=== PATIENT | female | born 1945 | race Caucasian/White ===

== ENCOUNTER 2023-01-14 16:32 | Emergency (ER) | payer OTHER, MEDICARE ==
--- OUTSIDE RECORDS SUMMARY | 2023-01-14 16:42 | XMS REPORT | Continuity of Care Document ---
:1945 Author Organization [facility] t Address [address] [place] [address]. [address] [place] [address] Care Team Providers Name Role Phone Gokul Posadas MD Primary Care Physician LESTER STARK Attending Clinician Unavailable Karlos Moreno Attending Clinician Unavailable LUCY_Dany Attending Clinician Unavailable Gokul Posadas Attending Clinician Lester Stark MD Attending Clinician Charity Avila Attending Clinician Doctor Unassigned, [place] Attending Clinician Unavailable Veronica Craig MD Attending Clinician [phone] Juliana Menjivar DO Attending Clinician [phone] Jorge [place] MD Attending Clinician Chon Jasso MD Attending Clinician Shae Savage MD Attending Clinician Norma Phillips MD Attending Clinician Quan Verdugo MD Attending Clinician Fadi AUTOMOTIVE REFINISH TECHNICIAN, Jamar Lim Attending Clinician JAMAR APONTE Attending Clinician Unavailable Karlos GREEN, Meri Rouse Attending Clinician Unavailable Vitaliy Huitron DO Attending Clinician Mohit Oliver MD Attending Clinician [phone] MOHIT OLIVER Attending Clinician Unavailable Jhon RAM, Afaq Attending Clinician KARLOS MORENO Attending Clinician Unavailable MD KARLOS MORENO Attending Clinician Unavailable Lupillo Gastelum MD Attending Clinician Ramon RMA, Maurisio Chavez Attending Clinician [phone] Micah CONSERVATION AGENT, Carli Attending Clinician Everardo Schmidt Attending Clinician Unavailable Ralph SEWELL, Jeanne Attending Clinician Unavailable Cecilia Castillo MA Attending Clinician Unavailable Anila RAM, Julio Lacy Attending Clinician Rehan WHARTON, Angelica Ghosh Attending Clinician Angelo Hogan MA Attending Clinician Unavailable Yoel Jalloh MD Attending Clinician Inez Huggins Attending Clinician Unavailable VISIT, NURSE [facility] MAM[facility] Attending Clinician Unavailable Physician, No Primary or Family Admitting Clinician Unavaildawna AYALA_Rob_Mercedes_ Admitting Clinician Unavailable JORGE [place]IS Admitting Clinician Unavailable MD VERONICA CRAIG Admitting Clinician Unavailable Mohit Oliver MD Admitting Clinician [phone] MOHIT OLIVER Admitting Clinician Unavailable KARLOS MORENO Admitting Clinician Unavailable MD KARLOS MORENO Admitting Clinician Unavailable Karlos Moreno Admitting Clinician Unavailable LUPILLO GASTELUM Admitting Clinician Unavailable UNDEFINED Admitting Clinician Unavailable Payers Payer Name Policy Type Policy Number Effective Date Expiration Date S ource [place]IC[place]: [id number] 2012 [employer] 00:00:00 [facility] - [id number] 2022 OPTIONS 00:00:00 Problems Condition Condition Condition Status Onset Resolution Last Treating Co mments Source Name Details Category Date Date Treatment Clinician Date Osteoarthr Osteoarthr Problem Active A zalea itis of itis of 3-10 Orthope right hip Right Hip 00:00: dic joint Joint 00 Sports Medicin e Hypertensi Hypertens Diagnosis Active 2022-12-11 Memoria ve edelmira 12-08 13:12:52 l disorder, disorder, 00:00: Herm lynn systemic systemic 00 arterial arterial (disorder) (disorder) Active 12/08/2022 Diagnosis 12/11/2022 Medical Group,[facility] Internal Medicine [place] At risk At risk Diagnosis Active 2022-12-11 Memoria for for 12-08 13:12:52 l negative negative 00:00: Jose L n response response 00 to to medication medication (finding) (finding) Active 12/08/2022 Diagnosis 12/11/2022 [facility] Internal Medicine [place] ST ST Disease Active 2021-11 Univers elevation elevation 2-13 ity of myocardial [place] infarction infarction 00 Me dical (STEMI) (STEMI) Branch involving involving other other coronary coronary artery of artery of inferior inferior wall wall Implantati Implantati Problem Active 2020-11 A zalea on of on of 2-06 Orthope joint Joint 00:00: dic prosthesis Prosthesis 00 Sp orts Medicin e Infection Infection Problem Active 2020-11 Aza jason associated Associated 17 Or thope with with 00:00: dic prosthesis Prosthesis 00 Sp orts of left of Left Medicin knee joint Knee Joint e Streptococ Streptococ Problem Active 2020-11 A zalea cus cus 1-17 Orthope agalactiae Agalactiae 00:00: di c infection Infection 00 Spor ts Medicin e Aftercare Aftercare Disease Active 2020-11 Met leobardoi following following 1-16 st explantati explantati 00:00: Ho spita on of knee on of knee 00 l joint joint prosthesis prosthesis Aftercare Aftercare Problem Active 2020-11 Aza jason 0-04 Orthope 00:00: dic 00 Sports Medicin e Eruption Eruption Problem Active Azale a 8-30 Orthope 00:00: dic 00 Sports Medicin e Keloid Keloid Problem Active Debby scar Scar 7-27 Orthope 00:00: dic 00 Sports Medicin e Chronic Chronic Disease Active Methodi infection infection 7-25 st of left of left 00:00: Hospita knee knee 00 l Replacemen Replacemen Problem Active A zalea t of total t of Total 6-15 Or thope knee joint Knee Joint 00:00: di c 00 Sports Medicin e Prosthetic Prosthetic Problem Active A zalea joint Joint 6-15 Orthope infection Infection 00:00: dic 00 Sports Medicin e Anemia of Anemia of Disease Active Met hodi chronic chronic 6-10 st disease disease 00:00: Hospita 00 l Infection Infection Disease Active Met hodi of of 5-10 st prosthetic prosthetic 00:00: Ho spita left knee left knee 00 l joint joint Primary Primary Disease Active Overview: Meth marissa osteoarthr osteoarthr 1-[address] itis of itis of 00:00: g of this Hospi ta right knee right knee 00 note l might be different from the original. Added automatic ally from request for surgery [id number] OA OA Disease Active [facility]i (osteoarth (osteoarth 9-24 st ritis) of ritis) of 00:00: Hosp karlos knee knee 00 l Malignant Malignant Problem Resolve 2022-06-12 Memoria tumor of tumor of d 03:51:35 l breast breast [place] (disorder) (disorder) Resolved Problem 06/12/2022 Lt breast Medical Group Bronchitis Bronchiti Problem Resolve 2022-06-12 Memoria (disorder) s d 03:51:35 l (disorder) Jose L n Resolved Problem 06/12/2022 Data migrated from [employer] on 05/18/15.<b r/>Data migrated from [employer] on 05/17/15. Medical Group Cat bite Cat bite Problem Active 2022-12-29 Memoria (finding) (finding) 06:23:00 l Active [place] Problem 12/29/2022 Medical Group,[facility] Morbid Morbid Problem Active 2022-12-29 [facility] obesity obesity 06:23:00 l (disorder) (disorder) He r[place] Active Problem 12/29/2022 [facility] Arthritis Arthritis Problem Active 2022-12-29 Memoria (disorder) (disorder) 06:23:00 l Active [place] Problem 12/29/2022 Medical [facility] Internal Medicine [facility] Anemia Anemia Problem Active 2022-12-29 Trevor les (disorder) (disorder) 06:23:00 l Active [place] Problem 12/29/2022 [facility] Chronic Chronic Problem Active 2022-12-29 Me moria kidney kidney 06:23:00 l disease disease [place] stage 3 stage 3 (disorder) (disorder) Active Problem 12/29/2022 Medical [facility] Internal Medicine [facility] Effusion Effusion Problem Active 2022-12-29 Memoria of joint of joint 06:23:00 l of left of left [place] knee knee Active Problem 12/29/2022 Medical [facility] Bacteremia Problem Active 2022-12-29 M emoria (disorder) Bacteremia 06:23:00 l (disorder) Jose L n Active Problem 12/29/2022 [facility] Internal [facility] [place] 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-29 Memoria arterioscl arterioscl 06:23:00 l erosis erosis [place] (disorder) (disorder) Active Problem 12/29/2022 [facility] Internal [facility] [place] Finding Finding Problem Active 2022-12-29 Me moria related to related to 06:23:00 l ability to ability to He r[place] perform perform personal personal care care activity activity (finding) (finding) Active Problem 12/29/2022 [facility] Internal Medicine [place] History of History Problem Active 2022-12-29 Memoria total knee of total 06:23:00 l arthroplas knee Jose L n ty arthroplas (situation ty ) (situation ) Active Problem 12/29/2022 [facility] Internal Medicine [place] Hyperlipid Hyperlipi Problem Active 2022-12-29 Memoria emia demia 06:23:00 l (disorder) (disorder) He rmann Active Problem 12/29/2022 Medical Group,[facility] Internal Medicine [place] Pulmonary Pulmonary Problem Active 2022-12-29 Memoria embolism embolism 06:23:00 l (disorder) (disorder) He rmann Active Problem 12/29/2022 [facility] [place] Fistula of Fistula Problem Active 2022-12-29 Memoria knee joint of knee 06:23:00 l (disorder) joint Jose L n (disorder) Active Problem 12/29/2022 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 Infection Infection Problem Active 2022-12-29 Memoria AND/OR AND/OR 06:23:00 l inflammato inflammato He rmann ry ry reaction reaction due to due to internal internal prosthetic prosthetic device, device, implant implant AND/OR AND/OR graft graft (disorder) (disorder) Active Problem 12/29/2022 [facility] Patient Patient Problem Active 2022-12-29 Me moria encounter encounter 06:23:00 l status status [place] (finding) (finding) Active Problem 12/29/2022 [facility] Requires Requires Problem Active 2022-12-29 Memoria vaccinatio vaccinatio 06:23:00 l n n Active [place]o Problem 12/29/2022 [facility] Artificial Artificia Diagnosis 2022-2022-12-11 2022-12-11 Memoria knee joint l knee 12-08 13:12:52 13:12:52 l present joint 23:01: [place] (finding) present 00 (finding) 12/08/2022 Diagnosis 12/11/2022 [facility] Long-term Long-term Diagnosis 2022-2022-12-11 2022-12-11 Memoria current current 12-08 13:12:52 13:12:52 l use of use of 23:01: [place] drug drug 00 therapy therapy (situation (situation ) ) 12/08/2022 Diagnosis 12/11/2022 [facility] [place] Atheroscle Atheroscl Diagnosis 2022-2022-12-11 2022-12-11 Memoria rosis of erosis of 12-08 13:12:52 13:12:52 l coronary coronary 23:00: Jose L brand artery artery 00 (disorder) (disorder) 12/08/2022 Diagnosis 12/11/2022 Medical Group Essential Essential Diagnosis 2022-12-11 2022-12-11 Memoria hypertensi hypertensi 12-08 13:12:52 13:12:52 l on on 23:00: [place] (disorder) (disorder) 00 12/08/2022 Diagnosis 12/11/2022 Medical Group Osteoarthr Osteoarth Diagnosis 2022-12-11 2022-12-11 Memoria itis ritis 12-08 13:12:52 13:12:52 l (disorder) (disorder) 23:00: Darnell vaughan 12/08/2022 00 Diagnosis 12/11/2022 Medical Group No able No able Diagnosis 2022-12-11 2022-12-11 Memoria caregiver caregiver 12-08 13:12:52 13:12:52 l in in 22:59: [place] household household 00 12/08/2022 Diagnosis 12/11/2022 [facility] Internal Medicine [place] History of Past Illness Condition Condition Condition Status Onset Resolution Last Treating Co mments Source Name Details Category Date Date Treatment Clinician Date Essential Essential Problem 2022-06-12 2022-06-12 Memoria (primary) (primary) 06-09 03:51:35 03:51:35 l hypertensi hypertensi 20:24: Darnell vaughan on on 06/09/2022 06/12/2022 Medical Group Unspecifie Unspecifi Problem 2022-06-12 2022-06-12 Memoria d ed 06-09 03:51:35 03:51:35 l osteoarthr osteoarthr 20:24: He alexus itis, itis, 00 unspecifie unspecifie d site d site 06/09/2022 06/12/2022 Medical Group Chronic Chronic Problem 2022-06-12 2022-06-12 Memoria kidney kidney 06-09 03:51:35 03:51:35 l disease, disease, 20:24: Jose L brand stage 3 stage 3 00 unspecifie unspecifie d d 06/09/2022 06/12/2022 Medical Group Infection Infection Problem 2020-112021-09-04 2021-09-04 Memvenice and and 11-01 00:09:56 00:09:56 l inflammato inflammato 14:26: He rmann ry ry 00 reaction reaction due to due to internal internal left knee left knee prosthesis prosthesis , , subsequent subsequent encounter encounter 09/01/2021 09/04/2021 Medical Group Allergies, Adverse Reactions, Alerts Allergy Allergy Status Severity Reaction(s) Onset Inactive Treating Comm ents Source Name Type Date Date Clinician TELMISAR DRUG Active Hives 2021-11 Univers GRADY INGREDI 2-21 ity of 00:00: [place] [address] Medical Branch AMLODIPI DRUG Active Other-Cmnt 2021-11 Univ ers NE INGREDI 2-15 ity of 00:00: [place] [address] Medical Branch Amlodipi Propensi Active Other - See 2021-11 Gingival Univers ne ty to comments 2-15 hyperplas ity o f adverse 00:00: ia [place] reaction 00 Medical s Branch No Known DA Active U [facility] Allergie 6-15 Clear s 00:00: [place] 00 [facility] No Known DA Active U [facility] Allergie 6-15 Clear s 00:00: [place] 00 [facility] No Known No Known Active Memori a Medicati Medicati l on on [place] Allergie Allergie s s NO KNOWN Drug Active Univers ALLERGIE Class ity of S [facility] Family History Family Member Diagnosis Comments Start Date Stop Date Source Natural brother Osteoporosis [facility] Natural father Osteoporosis [facility] Natural mother Cancer [facility] mother Diabetes [facility] mother Osteoporosis [facility] Social History Social Habit Start Date Stop Date Quantity Comments Source History SDOH Social Unive rsity of [facility] Med ical Together Branch History SDOH Social Unive rsity of [facility] Branch History SDOH Social Unive rsity of [facility] Medical Membership Branch History SDOH Social Unive rsity of [facility] Medical Meetings Branch Exposure to 2022-10-11 2022-10-21 Not sure University of SARS-CoV-2 (event) 00:00:00 12:27:00 [facility] Tobacco use and 2022-10-21 2022-10-21 Smokeless Universit y of exposure 00:00:00 00:00:00 tobacco non-user [facility] dical Branch History SDOH 2022-10-14 2022-10-14 1 University o f Alcohol Binge 00:00:00 00:00:00 [place] Medic al Branch History SDOH Social 2022-10-14 2022-10-14 5 Unive rsity of Connections Phone 00:00:00 00:00:00 [facility] edical Branch History SDOH Social 2022-10-14 2022-10-14 3 Unive rsity of Connections Living 00:00:00 00:00:00 [place] [facility] History SDOH 2022-10-14 2022-10-14 0 University o f Physical Activity 00:00:00 00:00:00 [place] M edical DPW Branch History SDOH 2022-10-14 2022-10-14 0 University o f Physical Activity 00:00:00 00:00:00 [facility] edical MPS Branch History SDOH 2022-10-14 2022-10-14 5 University o f Financial 00:00:00 00:00:00 [place] [facility] History SDOH Food 2022-10-14 2022-10-14 1 Univers ity of Worry 00:00:00 00:00:00 [place] [facility] History SDOH Food 2022-10-14 2022-10-14 1 Univers ity of Scarcity 00:00:00 00:00:00 [place] [facility] History SDOH 2022-10-14 2022-10-14 2 University o f Transport Med 00:00:00 00:00:00 [place] Medic al Branch History SDOH 2022-10-14 2022-10-14 2 University o f Transport Non-Med 00:00:00 00:00:00 [facility] edical Branch History SDOH 2022-10-14 2022-10-14 1 University o f Alcohol Frequency 00:00:00 00:00:00 [place] M edical Branch History SDOH 2022-10-14 2022-10-14 0 University o f Alcohol Std Drinks 00:00:00 00:00:00 [facility] Branch Alcohol intake 2021-09-30 2021-09-30 Current Denominational 00:00:00 00:00:00 non-drinker of Hospital alcohol (finding) Sex Ass[birth year] At [birth year] Denominational 00:00:00 00:00:00 Hospital Smoking Status Start Date Stop Date Source Tobacco smoking consumption [facility] Branch Tobacco smoking status [facility] Medications Ordered Filled Start Stop Current Ordering Indication Dosage Frequency Signature Comments Components Source Medication Medication Date Date Medication? Clinician (SIG) Name Name isosorbide 2022-0 Yes 60 mg = 1 Me moria mononitrate 2-09 tab, PO, l 60 mg oral 12:10: QAM, # 30 He rmann tablet, 00 tab, 11 extended Refill(s), release Pharmacy: [facility] #[id number], 154.94, cm, 12/08/22 15:09:00 MEDICAL ASSEMBLY, Height, 118.636, kg, 06/09/22 14:36:00 CDT, Weight losartan 25 2022-0 Yes 25 mg = 1 M emoria mg oral 2-09 tab, PO, l tablet 12:10: Daily, # Christiano 00 30 tab, 11 Refill(s), Pharmacy: [facility] #[id number], 154.94, cm, 12/08/22 15:09:00 MEDICAL ASSEMBLY, Height, 118.636, kg, 06/09/22 14:36:00 CDT, Weight isosorbide 2022-0 Yes 60 mg = 1 Me moria mononitrate 2-09 tab, PO, l 60 mg oral 12:10: QAM, # 30 He rmann tablet, 00 tab, 11 extended Refill(s), release Pharmacy: [facility] #[id number], 154.94, cm, 12/08/22 15:09:00 MEDICAL ASSEMBLY, Height, 118.636, kg, 06/09/22 14:36:00 CDT, Weight losartan 25 2022-0 Yes 25 mg = 1 M emoria mg oral 2-09 tab, PO, l tablet 12:10: Daily, # [place] 00 30 tab, 11 Refill(s), Pharmacy: [facility] #[id number], 154.94, cm, 12/08/22 15:09:00 MEDICAL ASSEMBLY, Height, 118.636, kg, 06/09/22 14:36:00 CDT, Weight Eliquis 5 2022-0 Yes 5 mg = 1 Trevor les mg oral 2-09 tab, PO, l tablet 12:09: BID, # 60 Jose L n 00 tab, 11 Refill(s), Pharmacy: [facility] #[id number], 154.94, cm, 12/08/22 15:09:00 MEDICAL ASSEMBLY, Height, 118.636, kg, 06/09/22 14:36:00 CDT, Weight Eliquis 5 2022-0 Yes 5 mg = 1 Trevor les mg oral 2-09 tab, PO, l tablet 12:09: BID, # 60 Jose L n 00 tab, 11 Refill(s), Pharmacy: [facility] #[id number], 154.94, cm, 12/08/22 15:09:00 MEDICAL ASSEMBLY, Height, 118.636, kg, 06/09/22 14:36:00 CDT, Weight atorvastati 2022-0 Yes 40 mg = 1 M emoria n 40 mg 2-07 tab, PO, l oral tablet 21:09: Daily, 0 He rmann 00 Refill(s) atorvastati 2022-0 Yes 40 mg = 1 M emoria n 40 mg 2-07 tab, PO, l oral tablet 21:09: Daily, 0 He rmann 00 Refill(s) Metoprolol 2022-0 Yes 50 mg = 1 Me moria Succinate 2-07 tab, PO, l ER 50 mg 21:07: Daily, # Terra nn oral 00 90 tab, 0 tablet, Refill(s) extended release Metoprolol 2022-0 Yes 50 mg = 1 Me moria Succinate 2-07 tab, PO, l ER 50 mg 21:07: Daily, # Terra nn oral 00 90 tab, 0 tablet, Refill(s) extended release furosemide 2022-0 Yes 40 mg = 1 Me moria 40 mg oral 2-07 tab, PO, l tablet 21:06: Daily, # Christiano 00 90 tab, 0 Refill(s) furosemide 2022-0 Yes 40 mg = 1 Me moria 40 mg oral 2-07 tab, PO, l tablet 21:06: Daily, # [place] 00 90 tab, 0 Refill(s) aspirin 2022-0 Yes 81mg QD Take 1 [facility]i (ECOTRIN) 1-07 tablet (81 st 81 MG 20:42: mg total) Hospita enteric 02 by mouth l coated daily. tablet atorvastati 2023-0 Yes 40mg QD Take 1 Meth marissa n (LIPITOR) -07 tablet (40 st 40 mg 20:42: mg total) Hospita tablet 02 by mouth l daily. nitroglycer 2023-[address] 1 Met hodi in 11-[address] (NITROSTAT) 20:42: (0.4 mg Hos jana 0.4 MG SL 02 total) l tablet under the tongue every 5 (five) minutes as needed for chest pain. aspirin 2023-0 Yes 81mg QD Take 1 [facility]i (ECOTRIN) 11-07 tablet (81 st 81 MG 20:42: mg total) Hospita enteric 02 by mouth l coated daily. tablet atorvastati 2023-0 Yes 40mg QD Take 1 Meth marissa n (LIPITOR) 11-07 tablet (40 st 40 mg 20:42: mg total) Hospita tablet 02 by mouth l daily. nitroglycer 2023-[address] 1 Met hodi in 11-[address] (NITROSTAT) 20:42: (0.4 mg Hos jana 0.4 MG SL 02 total) l tablet under the tongue every 5 (five) minutes as needed for chest pain. furosemide 2023-0 2023- No 40mg QD Take 1 Meth marissa (LASIX) 40 11-07 tablet (40 st mg tablet 20:42: 00:00 mg total) Ho spita 02 :00 by mouth l daily. ticagrelor 2023-0 2023- No 90mg Q.5D Take 1 Meth marissa (BRILINTA) 11-07 tablet (90 st 90 mg 20:42: 00:00 mg total) Hospit a tablet 02 :00 by mouth 2 l (two) times a day. furosemide 2023-0 2023- No 40mg QD Take 1 Meth marissa (LASIX) 40 11-07 tablet (40 st mg tablet 20:42: 00:00 mg total) Ho spita 02 :00 by mouth l daily. ticagrelor 2023-0 2023- No 90mg Q.5D Take 1 Meth marissa (BRILINTA) 11-07 tablet (90 st 90 mg 20:42: 00:00 mg total) Hospit a tablet 02 :00 by mouth 2 l (two) times a day. metoprolol 2022- No 100mg QD Take 1 Met hodi succinate 11-[address] XL 00:00: 05:59 (100 mg Hospita (TOPROL-XL) 00 :00 total) by l 100 mg 24 mouth hr tablet every morning for 30 days. isosorbide 2022-2022- No 60mg QD Take 1 Meth marissa mononitrate 11-07 tablet (60 s t (IMDUR) 60 00:00: 05:59 mg total) H ospita MG 24 hr 00 :00 by mouth l tablet daily for 30 days. losartan 2022- No 25mg QD Take 1 Method i (COZAAR) 25 11-07 tablet (25 s t MG tablet 00:00: 05:59 mg total) Ho spita 00 :00 by mouth l daily for 30 days. metoprolol 2022- No 100mg QD Take 1 Met hodi succinate 11-[address] XL 00:00: 05:59 (100 mg Hospita (TOPROL-XL) 00 :00 total) by l 100 mg 24 mouth hr tablet every morning for 30 days. isosorbide 2022- No 60mg QD Take 1 Meth marissa mononitrate 11-07 tablet (60 s t (IMDUR) 60 00:00: 05:59 mg total) H ospita MG 24 hr 00 :00 by mouth l tablet daily for 30 days. losartan 2022- No 25mg QD Take 1 Method i (COZAAR) 25 11-07 tablet (25 s t MG tablet 00:00: 05:59 mg total) Ho spita 00 :00 by mouth l daily for 30 days. multivit-mi 0 Yes 1{tbl} QD Take 1 Me thodi n/iron/foli 1-[address] c/lutein 20:42: mouth Hospita (CENTRUM 35 daily. l [place] WOMEN ORAL) multivit-mi 0 Yes 1{tbl} QD Take 1 Me thodi n/iron/foli 1-[address] c/lutein 20:42: mouth Hospita (CENTRUM 35 daily. l [place] WOMEN ORAL) apixaban 2023-0 Yes 5mg Take 1 Methodi (ELIQUIS) 5 1-06 tablet (5 st mg tablet 00:00: mg total) Hos jana 00 by mouth l take as directed (DVT/PE). Take 2 tablets (10 mg) twice daily #14; take 1 tablet (5 mg) twice daily #46 ceFAZolin 2023-0 Yes 2g Q8H Infuse 50 Met hodi in 0.9% 1-06 mL ([address] sodium 00:00: total) Hospita chloride 00 into a l (ANCEF) 2 venous gram/50 mL catheter IVPB every 8 (eight) hours. apixaban 2023-0 Yes 5mg Take 1 [facility]i (ELIQUIS) 5 1-06 tablet (5 st mg tablet 00:00: mg total) Hos jana 00 by mouth l take as directed (DVT/PE). Take 2 tablets (10 mg) twice daily #14; take 1 tablet (5 mg) twice daily #46 ceFAZolin 2023-0 Yes 2g Q8H Infuse 50 Met hodi in 0.9% 1-06 mL ([address] sodium 00:00: total) Hospita chloride 00 into a l (ANCEF) 2 venous gram/50 mL catheter IVPB every 8 (eight) hours. furosemide 2023-0 2023- No 20mg QD Take 1 Meth marissa (Lasix) 20 11-06- tablet (20 st mg tablet 00:00: 05:59 mg total) Ho spita 00 :00 by mouth l daily for 30 days. magnesium 2023-0 2023- No 400mg QD Take 1 Meth marissa oxide 11-06- tablet st (MAG-OX) 00:00: 05:59 (400 mg Hospi ta 400 mg 00 :00 total) by l (241.3 mg mouth magnesium) daily for tablet 30 days. furosemide 2023-0 2023- No 20mg QD Take 1 Meth marissa (Lasix) 20 11-06-06 tablet (20 st mg tablet 00:00: 05:59 mg total) Ho spita 00 :00 by mouth l daily for 30 days. magnesium 2023-0 2023- No 400mg QD Take 1 Meth marissa oxide 11-[address] (MAG-OX) 00:00: 05:59 (400 mg Hospi ta 400 mg 00 :00 total) by l (241.3 mg mouth magnesium) daily for tablet 30 days. telmisartan 2021-11 80mg Take 80 mg Univers 80 mg 2-21 12-21 by mouth ity of tablet 13:38: 00:00 in the [place] 36 :00 morning. [facility] telmisartan 2021-11 No 80mg Take 80 mg Univers 80 mg 2-21 12-21 by mouth ity of tablet 13:38: 00:00 in the [place] 36 :00 morning. [facility] 2021-11 Yes 1{tbl} Take 1 Un inocencia n/iron/foli 2-21 tablet by ity of c/lutein 13:12: mouth [place] (CENTRUM 39 every Medical SILVER morning. [place] WOMEN ORAL) terazosin 5 2021-11 Yes 5mg Take 5 mg U nivers mg capsule 2-21 by mouth ity o f 13:12: at [place] 39 bedtime. [facility] 2021-11 Yes 1{tbl} Take 1 Un inocencia n/iron/foli 2-21 tablet by ity of c/lutein 13:12: mouth [place] (CENTRUM 39 every Medical SILVER morning. [place] WOMEN ORAL) terazosin 5 2021-11 Yes 5mg Take 5 mg U nivers mg capsule 2-21 by mouth ity o f 13:12: at [place] 39 bedtime. [facility] [address] 2021-11 Yes 1{tbl} Take 1 Un inocencia n/iron/foli 2-21 tablet by ity of c/lutein 13:12: mouth [place] (CENTRUM 39 every Medical SILVER morning. [place] WOMEN ORAL) terazosin 5 2021-11 Yes 5mg Take 5 mg U nivers mg capsule 2-21 by mouth ity o f 13:12: at [place] 39 bedtime. [facility] [address] 2021-11 Yes 1{tbl} Take 1 Un inocencia n/iron/foli 2-21 tablet by ity of c/lutein 13:12: mouth [place] (CENTRUM 39 every Medical SILVER morning. [place] WOMEN ORAL) terazosin 5 2021-11 Yes 5mg Take 5 mg U nivers mg capsule 2-21 by mouth ity o f 13:12: at [place] [address] bedtime. Medical Branch multivit-mi 2021-11 Yes 1{tbl} Take 1 Un inocencia n/iron/foli 2-21 tablet by ity of c/lutein 13:12: mouth [place] (CENTRUM 39 every Medical SILVER morning. Branch WOMEN ORAL) terazosin 5 2021-11 Yes 5mg Take 5 mg U nivers mg capsule 2-21 by mouth ity o f 13:12: at [place] [address] bedtime. Medical Branch multivit-mi 2021-11 Yes 1{tbl} Take 1 Un inocencia n/iron/foli 2-21 tablet by ity of c/lutein 13:12: mouth [place] (CENTRUM 39 every Medical SILVER morning. Branch WOMEN ORAL) terazosin 5 2021-11 Yes 5mg Take 5 mg U nivers mg capsule 2-21 by mouth ity o f 13:12: at [place] [address] bedtime. Medical Branch sacubitriL- 2021-11 Yes [id number] 1{tbl} Take 1 Univers valsartan 2-21 9100 tablet by ity o f (ENTRESTO) 00:00: mouth in [place] 24-26 mg 00 the Medical tablet morning Branch and 1 tablet in the evening. sacubitriL- 2021-11 Yes [id number] 1{tbl} Take 1 Univers valsartan 2-21 9100 tablet by ity o f (ENTRESTO) 00:00: mouth in [place] 24-26 mg 00 the Medical tablet morning Branch and 1 tablet in the evening. sacubitriL- 2021-11 Yes [id number] 1{tbl} Take 1 Univers valsartan 2-21 9100 tablet by ity o f (ENTRESTO) 00:00: mouth in [place] 24-26 mg 00 the Medical tablet morning Branch and 1 tablet in the evening. sacubitriL- 2021-11 Yes [id number] 1{tbl} Take 1 Univers valsartan 2-21 9100 tablet by ity o f (ENTRESTO) 00:00: mouth in [place] 24-26 mg 00 the Medical tablet morning Branch and 1 tablet in the evening. sacubitriL- 2021-11 Yes [id number] 1{tbl} Take 1 Univers valsartan 2-21 9100 tablet by ity o f (ENTRESTO) 00:00: mouth in [place] 24-26 mg 00 the Medical tablet morning Branch and 1 tablet in the evening. sacubitriL- 2021-11 Yes [id number] 1{tbl} Take 1 Univers valsartan 2-21 9100 tablet by ity o f (ENTRESTO) 00:00: mouth in [place] 24-26 mg 00 the Medical tablet morning Branch and 1 tablet in the evening. gadobenate 2021-11- No [id number] .2mL/kg 23.76 mL Univers dimeglumine 2-19 - (0.2 mL/kg i ty of (MULTIHANCE 21:00: 20:34 ?118.8 [place] -15 mL) 00 :00 kg), Medical injection Intravenou [place] ch 23.76 mL s, ONCE, 1 dose, On Wed10/19/22 at 1500, Routine multivit-mi 2021-11 Yes 1{tbl} Take 1 Un inocencia n/iron/foli 2-19 tablet by ity of c/lutein 17:02: mouth [place] (CENTRUM 43 every Medical SILVER morning. Branch WOMEN ORAL) terazosin 5 2021-11 Yes 5mg Take 5 mg U nivers mg capsule 2-19 by mouth ity o f 17:02: at [place] [address] bedtime. Medical Branch telmisartan 2021-11 Yes 80mg Take 80 mg Univers 80 mg 2-19 by mouth ity of tablet 17:02: in the [place] [address] morning. Medical Branch multivit-mi 2021-11 Yes 1{tbl} Take 1 Un inocencia n/iron/foli 2-19 tablet by ity of c/lutein 17:02: mouth [place] (CENTRUM 43 every Medical SILVER morning. Branch WOMEN ORAL) terazosin 5 2021-11 Yes 5mg Take 5 mg U nivers mg capsule 2-19 by mouth ity o f 17:02: at [place] [address] bedtime. Medical Branch telmisartan 2021-11 Yes 80mg Take 80 mg Univers 80 mg 2-19 by mouth ity of tablet 17:02: in the [place] [address] morning. Medical Branch magnesium 2021-11- No 400mg 400 mg, Uni vers oxide 2-19 12-19 Oral, ity of (MAG-OX 14:30: 14:43 ONCE, 1 [place] 400) tablet 00 :00 dose, On Medi nadine 400 mg Mon Branch 10/19/22 at 0830, Routine TRIAMTERENE 2021-11- No 37.5mg Take 37.5 Univers ORAL 2-19 12-19 mg by ity of 14:16: 00:00 mouth [place] 32 :00 daily. Medical Branch aspirin 81 2021-11 Yes [id number] 81mg Take 1 U nivers mg chewable 2-19 tablet by ity of tablet 00:00: mouth in [place] 00 the Medical morning. Branch atorvastati 2021-11 Yes [id number] 40mg Take 1 Univers n 40 mg 2-19 tablet by ity of tablet 00:00: mouth at [place] 00 bedtime. Medical Branch nitroglycer 2021-[id number] 1 Univers in 0.4 mg 2-19 tablet ity of sublingual 00:00: under the [place] tablet 00 tongue Medical every 5 Branch (five) minutes as needed for Chest pain. aspirin 81 2021-11 Yes [id number] 81mg Take 1 U nivers mg chewable 2-19 tablet by ity of tablet 00:00: mouth in [place] 00 the Medical morning. Branch atorvastati 2021-11 Yes [id number] 40mg Take 1 Univers n 40 mg 2-19 tablet by ity of tablet 00:00: mouth at [place] 00 bedtime. Medical Branch nitroglycer 2021-[id number] 1 Univers in 0.4 mg 2-19 tablet ity of sublingual 00:00: under the [place] tablet 00 tongue Medical every 5 Branch (five) minutes as needed for Chest pain. aspirin 81 2021-11 Yes [id number] 81mg Take 1 U nivers mg chewable 2-19 tablet by ity of tablet 00:00: mouth in [place] 00 the Medical morning. Branch atorvastati 2021-11 Yes [id number] 40mg Take 1 Univers n 40 mg 2-19 tablet by ity of tablet 00:00: mouth at [place] 00 bedtime. Medical Branch nitroglycer 2021-[id number] 1 Univers in 0.4 mg 2-19 tablet ity of sublingual 00:00: under the [place] tablet 00 tongue Medical every 5 Branch (five) minutes as needed for Chest pain. aspirin 81 2021-11 Yes [id number] 81mg Take 1 U nivers mg chewable 2-19 tablet by ity of tablet 00:00: mouth in [place] 00 the Medical morning. Branch atorvastati 2021-11 Yes [id number] 40mg Take 1 Univers n 40 mg 2-19 tablet by ity of tablet 00:00: mouth at [place] 00 bedtime. Medical Branch nitroglycer 2021-[id number] 1 Univers in 0.4 mg 2-19 tablet ity of sublingual 00:00: under the [place] tablet 00 tongue Medical every 5 Branch (five) minutes as needed for Chest pain. aspirin 81 2021-11 Yes [id number] 81mg Take 1 U nivers mg chewable 2-19 tablet by ity of tablet 00:00: mouth in [place] 00 the Medical morning. Branch atorvastati 2021-11 Yes [id number] 40mg Take 1 Univers n 40 mg 2-19 tablet by ity of tablet 00:00: mouth at [place] 00 bedtime. Medical Branch nitroglycer 2021-[id number] 1 Univers in 0.4 mg 2-19 tablet ity of sublingual 00:00: under the [place] tablet 00 tongue Medical every 5 Branch (five) minutes as needed for Chest pain. aspirin 81 2021-11 Yes [id number] 81mg Take 1 U nivers mg chewable 2-19 tablet by ity of tablet 00:00: mouth in [place] 00 the Medical morning. Branch atorvastati 2021-11 Yes [id number] 40mg Take 1 Univers n 40 mg 2-19 tablet by ity of tablet 00:00: mouth at [place] 00 bedtime. Medical Branch nitroglycer 2021-[id number] 1 Univers in 0.4 mg 2-19 tablet ity of sublingual 00:00: under the [place] tablet 00 tongue Medical every 5 Branch (five) minutes as needed for Chest pain. aspirin 81 2021-11 Yes [id number] 81mg Take 1 U nivers mg chewable 2-19 tablet by ity of tablet 00:00: mouth in [place] 00 the Medical morning. Branch atorvastati 2021-11 Yes [id number] 40mg Take 1 Univers n 40 mg 2-19 tablet by ity of tablet 00:00: mouth at [place] 00 bedtime. Medical Branch nitroglycer 2021-[id number] 1 Univers in 0.4 mg 2-19 tablet ity of sublingual 00:00: under the [place] tablet 00 tongue Medical every 5 Branch (five) minutes as needed for Chest pain. aspirin 81 2021-11 Yes [id number] 81mg Take 1 U nivers mg chewable 2-19 tablet by ity of tablet 00:00: mouth in [place] 00 the Medical morning. Branch atorvastati 2021-11 Yes [id number] 40mg Take 1 Univers n 40 mg 2-19 tablet by ity of tablet 00:00: mouth at [place] 00 bedtime. Medical Branch nitroglycer 2021-[id number] 1 Univers in 0.4 mg 2-19 tablet ity of sublingual 00:00: under the [place] tablet 00 tongue Medical every 5 Branch (five) minutes as needed for Chest pain. ticagrelor 2021-11- Yes [id number] 90mg Take 1 Univers 90 mg 2-19 03-20 tablet by ity of tablet 00:00: 04:59 mouth in [place] 00 :00 the Medical morning Branch and 1 tablet in the evening. Do all this for 90 days. metoprolol 2021-11- Yes [id number] 50mg Take 1 Univers succinate 2-19 03-20 tablet by ity of XL 50 mg 24 00:00: 04:59 mouth in [place] hr tablet 00 :00 the Medical morning Branch for 90 days. furosemide 2021-11- Yes [id number] 40mg Take 1 Univers 40 mg 2-19 03-20 tablet by ity of tablet 00:00: 04:59 mouth in [place] 00 :00 the Medical morning Branch for 90 days. ticagrelor 2021-11- Yes [id number] 90mg Take 1 Univers 90 mg 2-19 03-20 tablet by ity of tablet 00:00: 04:59 mouth in [place] 00 :00 the Medical morning Branch and 1 tablet in the evening. Do all this for 90 days. metoprolol 2021-11- Yes [id number] 50mg Take 1 Univers succinate 2-19 03-20 tablet by ity of XL 50 mg 24 00:00: 04:59 mouth in [place] hr tablet 00 :[address] [facility] for 90 days. furosemide 2021-11- Yes [id number] 40mg Take 1 Univers 40 mg 2-19 03-20 tablet by ity of tablet 00:00: 04:59 mouth in [place] 00 :[address] [facility] for 90 days. ticagrelor 2021-11- Yes [id number] 90mg Take 1 Univers 90 mg 2-19 03-20 tablet by ity of tablet 00:00: 04:59 mouth in [place] 00 :00 the [facility] morning Branch and 1 tablet in the evening. Do all this for 90 days. metoprolol 2021-11- Yes [id number] 50mg Take 1 Univers succinate 2-19 03-20 tablet by ity of XL 50 mg 24 00:00: 04:59 mouth in [place] hr tablet 00 :[address] [facility] for 90 days. furosemide 2021-11- Yes [id number] 40mg Take 1 Univers 40 mg 2-19 03-20 tablet by ity of tablet 00:00: 04:59 mouth in [place] 00 :[address] [facility] for 90 days. ticagrelor 2021-11- Yes [id number] 90mg Take 1 Univers 90 mg 2-19 03-20 tablet by ity of tablet 00:00: 04:59 mouth in [place] 00 :[address] [facility] and 1 tablet in the evening. Do all this for 90 days. metoprolol 2021-11- Yes [id number] 50mg Take 1 Univers succinate 2-19 03-20 tablet by ity of XL 50 mg 24 00:00: 04:59 mouth in [place] hr tablet 00 :[address] [facility] for 90 days. furosemide 2021-11- Yes [id number] 40mg Take 1 Univers 40 mg 2-19 03-20 tablet by ity of tablet 00:00: 04:59 mouth in [place] 00 :[address] [facility] for 90 days. ticagrelor 2021-11- Yes [id number] 90mg Take 1 Univers 90 mg 2-19 03-20 tablet by ity of tablet 00:00: 04:59 mouth in [place] 00 :00 the [facility] morning Branch and 1 tablet in the evening. Do all this for 90 days. metoprolol 2021-11- Yes [id number] 50mg Take 1 Univers succinate 2-19 03-20 tablet by ity of XL 50 mg 24 00:00: 04:59 mouth in [place] hr tablet 00 :00 the Medical morning Branch for 90 days. furosemide 2021-11- Yes [id number] 40mg Take 1 Univers 40 mg 2-19 03-20 tablet by ity of tablet 00:00: 04:59 mouth in [place] 00 :00 the Medical morning Branch for 90 days. ticagrelor 2021-11- Yes [id number] 90mg Take 1 Univers 90 mg 2-19 03-20 tablet by ity of tablet 00:00: 04:59 mouth in [place] 00 :00 the Medical morning Branch and 1 tablet in the evening. Do all this for 90 days. metoprolol 2021-11- Yes [id number] 50mg Take 1 Univers succinate 2-19 03-20 tablet by ity of XL 50 mg 24 00:00: 04:59 mouth in [place] hr tablet 00 :00 the Medical morning Branch for 90 days. furosemide 2021-11- Yes [id number] 40mg Take 1 Univers 40 mg 2-19 03-20 tablet by ity of tablet 00:00: 04:59 mouth in [place] 00 :00 the [facility] morning Branch for 90 days. ticagrelor 2021-11- Yes [id number] 90mg Take 1 Univers 90 mg 2-19 03-20 tablet by ity of tablet 00:00: 04:59 mouth in [place] 00 :00 the Medical morning Branch and 1 tablet in the evening. Do all this for 90 days. metoprolol 2021-11- Yes [id number] 50mg Take 1 Univers succinate 2-19 03-20 tablet by ity of XL 50 mg 24 00:00: 04:59 mouth in [place] hr tablet 00 :00 the Medical morning Branch for 90 days. furosemide 2021-11- Yes [id number] 40mg Take 1 Univers 40 mg 2-19 03-20 tablet by ity of tablet 00:00: 04:59 mouth in [place] 00 :00 the [facility] morning Branch for 90 days. ticagrelor 2021-11- Yes [id number] 90mg Take 1 Univers 90 mg 2-19 03-20 tablet by ity of tablet 00:00: 04:59 mouth in [place] 00 :00 the Medical morning Branch and 1 tablet in the evening. Do all this for 90 days. metoprolol 2021-11- Yes [id number] 50mg Take 1 Univers succinate 12-20-20 tablet by ity of XL 50 mg 24 00:00: 04:59 mouth in [place] hr tablet 00 :00 the Medical morning Branch for 90 days. furosemide 2021-11- Yes [id number] 40mg Take 1 Univers 40 mg 12-20-20 tablet by ity of tablet 00:00: 04:59 mouth in [place] 00 :00 the [facility] morning Branch for 90 days. triamterene 2021-11 Yes 1{tbl} 1 tablet, Univers -hydrochlor 2-18 Oral, ity of othiazid 15:00: DAILY, [place] (MAXZIDE-25 00 First dose Me dical ) 37.5-25 on [place] Branch mg tablet 1 10/18/22 tablet at 0900, Until Discontinu ed, Routine atorvastati 2021-11 Yes 40mg 40 mg, Univ ers n (LIPITOR) 218 Oral, QHS, it y of tablet 40 03:00: First dose [place] mg 00 (after Medical last Branch modificati on) on [facility] 10/17/22 at 2100, Until Discontinu ed, Routine ticagrelor 2021-11 Yes 90mg 90 mg, Unive rs (BRILINTA) 218 Oral, BID, ity of tablet 90 02:00: First dose [place] mg 00 on [facility] 10/17/22 Branch at 2000, Until Discontinu ed, Routine valsartan 2021-11- No 40mg 40 mg, Unive rs (DIOVAN) 12-18 Oral, BID, ity of tablet 40 14:00: 19:30 First dose [place] mg 00 :19 on [facility] 10/17/22 Branch at 0800, Until Discontinu ed, Routine magnesium 2021-11- No 4g 4 g, IV Univ ers sulfate in 12-18 Piggyback, it y of water 4 12:30: 14:27 at 25 [place] gram/50 mL 00 :00 mL/hr Medical (8 %) IV Administer Branc h Piggyback 4 over 120 g Minutes, ONCE, 1 dose, On [facility] 10/17/22 at 0630, Routine lisinopriL 2021-11 No 5mg 5 mg, Unive rs (PRINIVIL,Z 2-16 - Oral, ity of ESTRIL) 15:45: 06:00 DAILY, [place] tablet 5 mg 00 :24 First dose Me dical on Fri Branch 10/16/22 at 0945, Until Discontinu ed, Routine metoprolol 2021-11 Yes 37.5mg 37.5 mg, U nivers tartrate 2-16 Oral, BID, ity o f (LOPRESSOR) 02:00: First dose [place] tablet 37.5 00 (after Medica l mg last Branch modificati on) on [place] 10/15/22 at 2000, Until Discontinu ed, Routine clopidogreL 2021-11 No 300mg 300 mg, U nivers (PLAVIX) 210-15 Oral, ity of 300 mg 17:30: 17:06 ONCE, 1 [place] tablet 300 00 :00 dose, On Medic al mg [facility] Branch 10/15/22 at 1130, Routine metoprolol 2021-11 No 12.5mg 12.5 mg, Univers tartrate 215 -15 Oral, ONCE ity of (LOPRESSOR) 17:30: 17:06 NOW, 1 [place] tablet 12.5 00 :00 dose, On Medi nadine mg [facility] Branch 10/15/22 at 1130, Routine atorvastati 2021-11 Yes 80mg 80 mg, Univ ers n (LIPITOR) 2-15 Oral, QHS, it y of tablet 80 03:00: First dose [place] mg 00 (after Medical last Branch modificati on) on Wed10/14/22 at 2100, Until Discontinu ed, Routine atorvastati 2021-11 No 80mg 80 mg, Uni vers n (LIPITOR) 2-15 12-17 Oral, QHS, i ty of tablet 80 03:00: 12:29 First dose [place] mg 00 :21 (after Medical last Branch modificati on) on Wed10/14/22 at 2100, Until Discontinu ed, Routine aspirin 2021-11 Yes 81mg 81 mg, Univers chewable 2-14 Oral, ity of tablet 81 15:00: DAILY, [place] mg 00 First dose Medical on Wed Branch 10/14/22 at 0900, Until Discontinu ed, Routine aspirin 2021-11 Yes 81mg 81 mg, Univers chewable 2-14 Oral, ity of tablet 81 15:00: DAILY, [place] mg 00 First dose Medical on Wed Branch 10/14/22 at 0900, Until Discontinu ed, Routine metoprolol 2021-11 Yes 25mg 25 mg, Unive rs tartrate 2-14 Oral, BID, ity o f (LOPRESSOR) 14:15: First dose [place] tablet 25 00 on Wed Medical mg 10/14/22 Branch at 0815, Until Discontinu ed, Routine metoprolol 2021-11- No 25mg 25 mg, Univ ers tartrate 2-14 12-15 Oral, BID, ity of (LOPRESSOR) 14:15: 16:40 First dose [place] tablet 25 00 :00 on Wed Medical mg 10/14/22 Branch at 0815, Until Discontinu ed, Routine heparin 2021-11 Yes 0U/h 0-2,750 Univers 25,000 2-14 Units/hr ity of Units/250 13:07: (0-27.5 [place] mL 05 mL/hr), IV Medical (Premixed Infusion, Branc h Bag) in TITRATE, 0.45 % NS Parameters in Admin. Instr., Starting on Wed10/14/22 at 0707
In itiate infusion at 12 units/kg/h r calculated as: 1,000 Units/hr (Maximum initial rate: 1,000 Units/hr, then adjust dose as needed per aPTT).&nbs p; CA UTION - If LMWH given in ER, AVOID bolus and start next dose/drip 12 hrs after ER dosage.&nb sp; M ust program rate using programmab le infusion pump.&nbsp ; Marija ck with the ordering provider first prior to any administra tion should the patient be on existing/a dditional anticoagul ant therapy. Range, Dosing and Testing: &nbs p;FOR [place], [facility], AND [facility] ONLY &nbs p; - aPTT < 35: & nbsp;Bolus 5000 units, increase rate 300 units/hr&n bsp; - aPTT 35-44:&nbs p; Kevyn edin 3000 units, increase rate 200 units/hr&n bsp; - aPTT 45-54:&nbs p; In crease rate 100 units/hr&n bsp; - aPTT 55-85:&nbs p; NO CHANGE&nbs p; - aPTT 86-95:&nbs p; De crease rate 100 units/hr&n bsp; - aPTT 96-120:&nb sp; H old 30 minutes, decrease rate 150 units/hr&n bsp; - aPTT > 120: Hold 60 minutes, decrease rate 200 units/hr&n bsp; Check aPTT 6 hours after initiation , then Q6H after every change, aPTT Q12H once therapeuti c levels are reached.&n bsp;
&nbs p;FOR [facility] ONLY - aPTT < 40: & nbsp;Bolus 5000 units, increase rate 300 units/hr&n bsp; - aPTT 40-49:&nbs p; Kevyn edin 3000 units, increase rate 200 units/hr&a mp;nbsp; - aPTT 50-59:&nbs p; In crease rate 100 units/hr&n bsp; - aPTT 60-85:&nbs p;&nbs p;NO CHANGE&nbs p; - aPTT 86-95:&nbs p; De crease rate 100 units/hr&n bsp; - aPTT 96-120:&nb sp; H old 30 minutes, decrease rate 150 units/hr&n bsp; - aPTT > 120: Hold 60 minutes, decrease rate 200 units/hr&n bsp; Check aPTT 6 hours after initiation , then Q6H after every change, aPTT Q12H once therapeuti c levels are reached.&a mp;nbsp;&n bsp; DO NOT ADJUST INITIAL BOLUS OR INITIAL INFUSION RATE.
heparin 2021-11- No 0U/h 0-2,750 Univer s 25,000 2-14 12-15 Units/hr ity of Units/250 13:07: 16:40 (0-27.5 [place] mL 05 :00 mL/hr), IV Medical (Premixed Infusion, Branc h Bag) in TITRATE, 0.45 % NS Parameters in Admin. Instr., Starting on Wed10/14/22 at 0707
In itiate infusion at 12 units/kg/h r calculated as: 1,000 Units/hr (Maximum initial rate: 1,000 Units/hr, then adjust dose as needed per aPTT).&nbs p; CA UTION - If LMWH given in ER, AVOID bolus and start next dose/drip 12 hrs after ER dosage.&nb sp; M ust program rate using programmab le infusion pump.&nbsp ; Marija ck with the ordering provider first prior to any administra tion should the patient be on existing/a dditional anticoagul ant therapy. Range, Dosing and Testing: &nbs p;FOR [facility], [facility], AND [facility] C[facility]ES ONLY &nbs p; - aPTT < 35: & nbsp;Bolus 5000 units, increase rate 300 units/hr&n bsp; - aPTT 35-44:&nbs p; Kevyn edin 3000 units, increase rate 200 units/hr&n bsp; - aPTT 45-54:&nbs p; In crease rate 100 units/hr&n bsp; - aPTT 55-85:&nbs p; NO CHANGE&nbs p; - aPTT 86-95:&nbs p; De crease rate 100 units/hr&n bsp; - aPTT 96-120:&nb sp; H old 30 minutes, decrease rate 150 units/hr&n bsp; - aPTT > 120: Hold 60 minutes, decrease rate 200 units/hr&n bsp; Check aPTT 6 hours after initiation , then Q6H after every change, aPTT Q12H once therapeuti c levels are reached.&n bsp;
&nbs p;FOR [facility] ONLY - aPTT < 40: & nbsp;Bolus 5000 units, increase rate 300 units/hr&n bsp; - aPTT 40-49:&nbs p; Kevyn edin 3000 units, increase rate 200 units/hr&a mp;nbsp; - aPTT 50-59:&nbs p; In crease rate 100 units/hr&n bsp; - aPTT 60-85:&nbs p;&nbs p;NO CHANGE&nbs p; - aPTT 86-95:&nbs p; De crease rate 100 units/hr&n bsp; - aPTT 96-120:&nb sp; H old 30 minutes, decrease rate 150 units/hr&n bsp; - aPTT > 120: Hold 60 minutes, decrease rate 200 units/hr&n bsp; Check aPTT 6 hours after initiation , then Q6H after every change, aPTT Q12H once therapeuti c levels are reached.&a mp;nbsp;&n bsp; DO NOT ADJUST INITIAL BOLUS OR INITIAL INFUSION RATE.
heparin 2021-11 Yes 3000U FOR Univers (1,000 2-14 REBOLUSING ity of unit/mL, 10 13:06: , Starting [place] mL vial) 55 on Wed Medical for 10/14/22 Branch Rebolusing at 0706, Until Discontinu ed, Routine
Dosing based on aPPT testing parameters (refer to continuous heparin drip order).
heparin 2021-11- No 3000U FOR Univers (1,000 2-14 -15 REBOLUSING ity of unit/mL, 10 13:06: 16:40 , Starting [place] mL vial) 55 :00 on Wed Medical for 10/14/22 Branch Rebolusing at 0706, Until [place] 10/15/22 at 1040, Routine
Dosing based on aPPT testing parameters (refer to continuous heparin drip order).
magnesium 2021-11 No 4g 4 g, IV Univ ers sulfate in 12-15 Piggyback, it y of water 4 11:45: 14:41 at 25 [place] gram/50 mL 00 :00 mL/hr Medical (8 %) IV Administer Branc h Piggyback 4 over 120 g Minutes, ONCE, 1 dose, On Wed10/14/22 at 0545, Routine heparin 2021-11- No 0U/h 0-2,750 Univer s 25,000 -14 10-14 Units/hr ity of Units/250 06:19: 13:07 (0-27.5 [place] mL 24 :16 mL/hr), IV Medical (Premixed Infusion, Branc h Bag) in TITRATE, 0.45 % NS Parameters in Admin. Instr., Starting on Wed10/14/22 at 0019, For 1 day
Ini tiate infusion at 12 units/kg/h r calculated as: 1,000 Units/hr (Maximum initial rate: 1,000 Units/hr, then adjust dose as needed per aPTT).&nbs p; CA UTION - If LMWH given in ER, AVOID bolus and start next dose/drip 12 hrs after ER dosage.&nb sp;&nb sp;Must program rate using programmab le infusion pump.&nbsp ; Marija ck with the ordering provider first prior to any administra tion should the patient be on existing/a dditional anticoagul ant therapy. Rang e, Dosing and Testing: &nbs p;FOR [place], [facility] [place], AND [facility] C[facility]US[facility] ONLY &nbs p; - aPTT < 35: & nbsp;Bolus 5000 units, increase rate 300 units/hr&n bsp; - aPTT 35-44:&nbs p; Kevyn edin 3000 units, increase rate 200 units/hr&n bsp; - aPTT 45-54:&nbs p; In crease rate 100 units/hr&n bsp; - aPTT 55-85:&nbs p; NO CHANGE&nbs p; - aPTT 86-95:&nbs p; De crease rate 100 units/hr&n bsp; - aPTT 96-120:&nb sp; H old 30 minutes, decrease rate 150 units/hr&n bsp; - aPTT > 120: Hold 60 minutes, decrease rate 200 units/hr&n bsp; Check aPTT 6 hours after initiation , then Q6H after every change, aPTT Q12H once therapeuti c levels are reached.&n bsp; < BR> ___ & nbsp;FOR [facility] ONLY - aPTT < 40: & nbsp;Bolus 5000 units, increase rate 300 units/hr&n bsp; - aPTT 40-49:&nbs p; Kevyn edin 3000 units, increase rate 200 units/hr&n bsp; - aPTT 50-59:&nbs p; In crease rate 100 units/hr&n bsp; - aPTT 60-85:&nbs p; NO CHANGE&nbs p; - aPTT 86-95:&nbs p; De crease rate 100 units/hr&a mp;nbsp; - aPTT 96-120:&nb sp; H old 30 minutes, decrease rate 150 units/hr&n bsp; - aPTT > 120: Hold 60 minutes, decrease rate 200 units/hr&n bsp; Check aPTT 6 hours after initiation , then Q6H after every change, aPTT Q12H once therapeuti c levels are reached.&n bsp; DO NOT ADJUST INITIAL BOLUS OR INITIAL INFUSION RATE.<br&g t; atorvastati 2021-11- No 40mg 40 mg, Uni vers n (LIPITOR) 12-15 Oral, QHS, i ty of tablet 40 03:00: 14:13 First dose [place] mg 00 :02 on [facility] 10/13/22 Branch at 2100, Until Discontinu ed, Routine iohexol 2021-11- No ONCE INTRA Uni vers (OMNIPAQUE 12-15 PROCEDURE, it y of 300-100 mL) 01:31: 01:44 Starting [place] injection 52 :37 on [facility] 10/13/22 Branch at 1931, Until [facility] 10/13/22 at 1944, Routine, CV Intraproce dure heparin 2021-11- No ONCE INTRA Uni vers 1,000 12-15 PROCEDURE, ity of unit/mL 01:08: 01:44 Starting [place] injection 24 :37 on [facility] 10/13/22 Branch at 1908, Until [facility] 10/13/22 at 1943, Routine, CV Intraproce dure nitroglycer 2021-11- No ONCE INTRA Univers in (TRIDIL) 12-15 PROCEDURE, i ty of 2 mg in 10 01:08: 01:44 Starting [place] mL D5W for 12 :37 on [facility] Cardiac 10/13/22 Branch Cath at 1908, Until [facility] 10/13/22 at 1943, Routine, CV Intraproce dure verapamiL 2021-11- No ONCE INTRA U nivers (ISOPTIN) 12-15 PROCEDURE, ity of injection 01:08: 01:44 Starting [place] 03 :37 on [facility] 10/13/22 Branch at 1908, Until [facility] 10/13/22 at 1943, Routine, CV Intraproce dure lidocaine 2021-11- No ONCE INTRA U nivers 1% (PF) 12-15 PROCEDURE, ity o f (XYLOCAINE) 01:02: 01:44 Starting [place] injection 13 :37 on [facility] 10/13/22 Branch at 1902, Until [facility] 10/13/22 at 1943, Routine, CV Intraproce dure midazolam 2021-11- No ONCE INTRA U nivers (VERSED) 12-15 PROCEDURE, ity of injection 01:02: 01:44 Starting [place] 06 :37 on [facility] 10/13/22 Branch at 1902, Until [facility] 10/13/22 at 1943, Routine, CV Intraproce dure FENTanyl PF 2021-11- No ONCE INTRA Univers (SUBLIMAZE 12-15 PROCEDURE, it y of (PF)) 01:01: 01:44 Starting [place] injection 56 :37 on [facility] 10/13/22 Branch at 1901, Until [facility] 10/13/22 at 1943, Routine, CV Intraproce dure sulfur 2021-11- No [id number] 5mL 5 mL, Unive rs hexafluorid 12-14 Intravenou i ty of e microsphr 21:45: 21:42 s, ONCE, 1 [place] (LUMASON) 00 :00 dose, On Medica l injection 5 Tue Branch mL 10/13/22 at 1545, Routine
philosophy faculty member approving Restricted medication : SANDRA BLAND magnesium 2021-11- No 4g 4 g, IV Univ ers sulfate in 2-13 12-13 Piggyback, it y of water 4 21:45: 23:24 at 25 [place] gram/50 mL 00 :00 mL/hr Medical (8 %) IV Administer Branc h Piggyback 4 over 120 g Minutes, ONCE, 1 dose, On Wed10/13/22 at 1545, Routine multivit-mi 2021-11 Yes 1{tbl} Take 1 Un inocencia n/iron/foli 2-13 tablet by ity of c/lutein 21:33: mouth [place] (CENTRUM 14 every Medical SILVER morning. [place] WOMEN ORAL) multivit-mi 2021-11 Yes 1{tbl} Take 1 Un inocencia n/iron/foli 2-13 tablet by ity of c/lutein 21:33: mouth [place] (CENTRUM 14 every Medical SILVER morning. [place] WOM[facility] ORAL) HEPARIN 2021-11- No 4000U 4,000 Univers SODIUM 2-13 12-13 Units, IV ity of (PORCINE) 21:00: 21:08 Push, [place] 1,000 00 :00 ONCE, 1 Medical UNIT/ML dose, On Branch BOLUS ACS Wed ORDER SET 10/13/22 at 1500, VIDA heparin 2021-11- No 0U/h 0-2,750 Univer s 25,000 2-13 12-14 Units/hr ity of Units/250 20:48: 06:19 (0-27.5 [place] mL 38 :41 mL/hr), IV Medical (Premixed Infusion, Branc h Bag) in TITRATE, 0.45 % NS Parameters in Admin. Instr., Starting on Wed10/13/22 at 1448
In itiate infusion at 12 units/kg/h r calculated as: 1,000 Units/hr (Maximum initial rate: 1,000 Units/hr, then adjust dose as needed per aPTT).&nbs p; CA UTION - If LMWH given in ER, AVOID bolus and start next dose/drip 12 hrs after ER dosage.&nb sp; M ust program rate using programmab le infusion pump.&nbsp ; Marija ck with the ordering provider first prior to any administra tion should the patient be on existing/a dditional anticoagul ant therapy. Range, Dosing and Testing: &nbs p;FOR [facility], [facility], AND [facility] ONLY &nbs p; - aPTT < 35: & nbsp;Bolus 5000 units, increase rate 300 units/hr&n bsp; - aPTT 35-44:&nbs p; Kevyn edin 3000 units, increase rate 200 units/hr&n bsp; - aPTT 45-54:&nbs p; In crease rate 100 units/hr&n bsp; - aPTT 55-85:&nbs p; NO CHANGE&nbs p; - aPTT 86-95:&nbs p; De crease rate 100 units/hr&n bsp; - aPTT 96-120:&nb sp; H old 30 minutes, decrease rate 150 units/hr&n bsp; - aPTT > 120: Hold 60 minutes, decrease rate 200 units/hr&n bsp; Check aPTT 6 hours after initiation , then Q6H after every change, aPTT Q12H once therapeuti c levels are reached.&n bsp;
&nbs p;FOR [facility] ONLY - aPTT < 40: & nbsp;Bolus 5000 units, increase rate 300 units/hr&n bsp; - aPTT 40-49:&nbs p; Kevyn edin 3000 units, increase rate 200 units/hr&a mp;nbsp; - aPTT 50-59:&nbs p; In crease rate 100 units/hr&n bsp; - aPTT 60-85:&nbs p;&nbs p;NO CHANGE&nbs p; - aPTT 86-95:&nbs p; De crease rate 100 units/hr&n bsp; - aPTT 96-120:&nb sp; H old 30 minutes, decrease rate 150 units/hr&n bsp; - aPTT > 120: Hold 60 minutes, decrease rate 200 units/hr&n bsp; Check aPTT 6 hours after initiation , then Q6H after every change, aPTT Q12H once therapeuti c levels are reached.&a mp;nbsp;&n bsp; DO NOT ADJUST INITIAL BOLUS OR INITIAL INFUSION RATE.
clopidogreL 2021-11- No 300mg 300 mg, U nivers (PLAVIX) 12-14 Oral, ity of 300 mg 19:45: 18:56 ONCE, 1 [place] tablet 300 00 :00 dose, On Medic al mg Wed10/13/22 at 1345, Routine tenecteplas 2021-11- No 50mg 50 mg, Uni vers e (TNKASE) 12-14 Slow IV ity o f injection 19:15: 19:26 Push, [place] 50 mg 00 :00 ONCE, 1 Medical dose, On Branch Wed10/13/22 at 1315, VIDA
In dication: ST-ELEVATI ON MYOCARDIAL INFARCTION nitroglycer 2021-11 Yes .4mg 0.4 mg, Uni vers in 12-14 Sublingual ity of (NITROSTAT) 19:08: , Q5MIN [place] sublingual 51 PRN, Medical tablet 0.4 Starting Branc h mg on Wed10/13/22 at 1308, Until Discontinu ed, VIDA, Chest pain nitroglycer 2021-11 Yes .4mg 0.4 mg, Uni vers in 12-14 Sublingual ity of (NITROSTAT) 19:08: , Q5MIN [place] sublingual 51 PRN, Medical tablet 0.4 Starting Branc h mg on Wed10/13/22 at 1308, Until Discontinu ed, VIDA, Chest pain ondansetron 2021-11 Yes 4mg 4 mg, Slow Univers (ZOFRAN 2-13 IV Push, ity of (PF)) 19:08: PRN, 1 [place] injection 4 50 dose, Medical mg Starting Branch on Wed10/13/22 at 1308, Until Discontinu ed, VIDA, Nausea and Vomiting (N/V) ondansetron 2021-11 Yes 4mg 4 mg, Slow Univers (ZOFRAN 2-13 IV Push, ity of (PF)) 19:08: PRN, 1 [place] injection 4 50 dose, Medical mg Starting Branch on Wed10/13/22 at 1308, Until Discontinu ed, VIDA, Nausea and Vomiting (N/V) morpHINE (2 2021-11 Yes 2mg 2 mg, Slow Univers mg/mL) 2-13 IV Push, ity of injection 2 19:08: Q15MIN [place] mg 49 PRN, 3 Medical doses, Branch Starting on Wed10/13/22 at 1308, Until Discontinu ed, Routine, Pain (scale 7-10), Chest pain morpHINE (2 2021-11 Yes 2mg 2 mg, Slow Univers mg/mL) 2-13 IV Push, ity of injection 2 19:08: Q15MIN [place] mg 49 PRN, 3 Medical doses, Branch Starting on Wed10/13/22 at 1308, Until Discontinu ed, Routine, Pain (scale 7-10), Chest pain aspirin 2021-11 No 325mg 325 mg, Unive rs tablet 325 12-14 Oral, ity of mg 19:00: 18:56 ONCE, 1 [place] 00 :00 dose, On Medical Wed10/13/22 at 1300, STAT metoprolol 0 Yes 100mg Take 100 Un inocencia succinate 9-19 mg by ity of XL 100 mg 00:00: mouth in [place] 24 hr 00 the Medical tablet morning. Branch metoprolol 0 Yes 100mg Take 100 Un inocencai succinate 9-19 mg by ity of XL 100 mg 00:00: mouth [place] 24 hr 00 the Medical tablet morning. Sharad metoprolol 0 2021- No 100mg Take 100 U nivers succinate 9-19 12-19 mg by ity of XL 100 mg 00:00: 00:00 mouth in [place] 24 hr 00 :00 the Medical tablet morning. Sharad hydrochloro 0 Yes 0.5 tab, Me moria thiazide-tr 8-09 PO, Daily, l iamterene 20:22: # 45 tab, Her brown 50 mg-75 mg 00 3 oral tablet Refill(s), Pharmacy: [facility] #[id number], 154.94, cm, 06/09/22 14:36:00 CDT, Height, 118.636, kg, 06/09/22 14:36:00 CDT, Weight Metoprolol 0 Yes = 1 tab, Mem oria Succinate 8-09 PO, Daily, l ER 100 mg 20:22: # 90 tab, Her brown oral 00 3 tablet, Refill(s), extended Pharmacy: [facility] [place] [facility] #[id number], 154.94, cm, 06/09/22 14:36:00 CDT, Height, 118.636, kg, 06/09/22 14:36:00 CDT, Weight terazosin 5 0 Yes = 1 cap, Me moria mg oral 8-09 PO, Daily, l capsule 20:22: # 90 cap, Terra nn 00 3 Refill(s), Pharmacy: [facility] #[id number], 154.94, cm, 06/09/22 14:36:00 CDT, Height, 118.636, kg, 06/09/22 14:36:00 CDT, Weight telmisartan 0 Yes = 1 tab, Me moria 80 mg oral 8-09 PO, Daily, l tablet 20:22: # 90 tab, Jose L n 00 3 Refill(s), Pharmacy: [facility] #[id number], 154.94, cm, 06/09/22 14:36:00 CDT, Height, 118.636, kg, 06/09/22 14:36:00 CDT, Weight hydrochloro 2021-0 Yes 0.5 tab, Me moria thiazide-tr 8-09 PO, Daily, l iamterene 20:22: # 45 tab, Her brown 50 mg-75 mg 00 3 oral tablet Refill(s), Pharmacy: [facility] ST[facility] #[id number], 154.94, cm, 06/09/22 14:36:00 CDT, Height, 118.636, kg, 06/09/22 14:36:00 CDT, Weight Metoprolol 2021-0 Yes = 1 tab, Mem oria Succinate 8- PO, Daily, l ER 100 mg 20:22: # 90 tab, Her [place] oral 00 3 tablet, Refill(s), extended Pharmacy: [facility] STORE #[id number], 154.94, cm, 06/09/22 14:36:00 CDT, Height, 118.636, kg, 06/09/22 14:36:00 CDT, Weight telmisartan 2021-0 Yes = 1 tab, Me moria 80 mg oral 8- PO, Daily, l tablet 20:22: # 90 tab, Jose L n 00 3 Refill(s), Pharmacy: [facility] STORE #[id number], 154.94, cm, 06/09/22 14:36:00 CDT, Height, 118.636, kg, 06/09/22 14:36:00 CDT, Weight terazosin 5 2021-0 Yes = 1 cap, Me moria mg oral 8-09 PO, Daily, l capsule 20:22: # 90 cap, Terra nn 00 3 Refill(s), Pharmacy: [facility] ST[facility] #[id number], 154.94, cm, 06/09/22 14:36:00 CDT, Height, 118.636, kg, 06/09/22 14:36:00 CDT, Weight hydrochloro 2021-0 Yes 0.5 tab, Me moria thiazide-tr 8-09 PO, Daily, l iamterene 20:22: # 45 tab, Her brown 50 mg-75 mg 00 3 oral tablet Refill(s), Pharmacy: [facility] #[id number], 154.94, cm, 06/09/22 14:36:00 CDT, Height, 118.636, kg, 06/09/22 14:36:00 CDT, Weight Metoprolol 2021-0 Yes = 1 tab, Mem oria Succinate 8-09 PO, Daily, l ER 100 mg 20:22: # 90 tab, Her brown oral 00 3 tablet, Refill(s), extended Pharmacy: [facility] [place] [facility] #[id number], 154.94, cm, 06/09/22 14:36:00 CDT, Height, 118.636, kg, 06/09/22 14:36:00 CDT, Weight telmisartan 2021-0 Yes = 1 tab, Me moria 80 mg oral 8-09 PO, Daily, l tablet 20:22: # 90 tab, Jose L n 00 3 Refill(s), Pharmacy: [facility] #[id number], 154.94, cm, 06/09/22 14:36:00 CDT, Height, 118.636, kg, 06/09/22 14:36:00 CDT, Weight terazosin 5 2021-0 Yes = 1 cap, Me moria mg oral 8-09 PO, Daily, l capsule 20:22: # 90 cap, Terra nn 00 3 Refill(s), Pharmacy: [facility] #[id number], 154.94, cm, 06/09/22 14:36:00 CDT, Height, 118.636, kg, 06/09/22 14:36:00 CDT, Weight hydrochloro 2021-0 Yes 0.5 tab, Me moria thiazide-tr 8-09 PO, Daily, l iamterene 20:22: # 45 tab, Her brown 50 mg-75 mg 00 3 oral tablet Refill(s), Pharmacy: [facility] #[id number], 154.94, cm, 06/09/22 14:36:00 CDT, Height, 118.636, kg, 06/09/22 14:36:00 CDT, Weight Metoprolol 2021-0 Yes = 1 tab, Mem oria Succinate 8-09 PO, Daily, l ER 100 mg 20:22: # 90 tab, Her brown oral 00 3 tablet, Refill(s), extended Pharmacy: [facility] [place] [facility] #[id number], 154.94, cm, 06/09/22 14:36:00 CDT, Height, 118.636, kg, 06/09/22 14:36:00 CDT, Weight telmisartan 2021-0 Yes = 1 tab, Me moria 80 mg oral 8-09 PO, Daily, l tablet 20:22: # 90 tab, Jose L n 00 3 Refill(s), Pharmacy: [facility] ST[facility] #[id number], 154.94, cm, 06/09/22 14:36:00 CDT, Height, 118.636, kg, 06/09/22 14:36:00 CDT, Weight terazosin 5 2021-0 Yes = 1 cap, Me moria mg oral 8-09 PO, Daily, l capsule 20:22: # 90 cap, Terra nn 00 3 Refill(s), Pharmacy: [facility] #[id number], 154.94, cm, 06/09/22 14:36:00 CDT, Height, 118.636, kg, 06/09/22 14:36:00 CDT, Weight hydrochloro 2021-0 Yes 0.5 tab, Me moria thiazide-tr 8-09 PO, Daily, l iamterene 20:22: # 45 tab, Her brown 50 mg-75 mg 00 3 oral tablet Refill(s), Pharmacy: [facility] #[id number], 154.94, cm, 06/09/22 14:36:00 CDT, Height, 118.636, kg, 06/09/22 14:36:00 CDT, Weight Metoprolol 2021-0 Yes = 1 tab, Mem oria Succinate 8-09 PO, Daily, l ER 100 mg 20:22: # 90 tab, Her [place] oral 00 3 tablet, Refill(s), extended Pharmacy: release [facility] #[id number], 154.94, cm, 06/09/22 14:36:00 CDT, Height, 118.636, kg, 06/09/22 14:36:00 CDT, Weight telmisartan 2021-0 Yes = 1 tab, Me moria 80 mg oral 8-09 PO, Daily, l tablet 20:22: # 90 tab, Jose L n 00 3 Refill(s), Pharmacy: [facility] #[id number], 154.94, cm, 06/09/22 14:36:00 CDT, Height, 118.636, kg, 06/09/22 14:36:00 CDT, Weight terazosin 5 2021-0 Yes = 1 cap, Me mor[place] mg oral 8-09 PO, Daily, l capsule 20:22: # 90 cap, Terra nn 00 3 Refill(s), Pharmacy: [facility] #[id number], 154.94, cm, 06/09/22 14:36:00 CDT, Height, 118.636, kg, 06/09/22 14:36:00 CDT, Weight hydrochloro 2021-0 Yes 0.5 tab, Me mor[place] thiazide-tr 8-09 PO, Daily, l iamterene 20:22: # 45 tab, Her brown 50 mg-75 mg 00 3 oral tablet Refill(s), Pharmacy: [facility] #[id number], 154.94, cm, 06/09/22 14:36:00 CDT, Height, 118.636, kg, 06/09/22 14:36:00 CDT, Weight Metoprolol 2021-0 Yes = 1 tab, Mem oria Succinate 8-09 PO, Daily, l ER 100 mg 20:22: # 90 tab, Her brown oral 00 3 tablet, Refill(s), extended Pharmacy: release [facility] #[id number], 154.94, cm, 06/09/22 14:36:00 CDT, Height, 118.636, kg, 06/09/22 14:36:00 CDT, Weight telmisartan 2021-0 Yes = 1 tab, Me moria 80 mg oral 8-09 PO, Daily, l tablet 20:22: # 90 tab, Jose L n 00 3 Refill(s), Pharmacy: [facility] #[id number], 154.94, cm, 06/09/22 14:36:00 CDT, Height, 118.636, kg, 06/09/22 14:36:00 CDT, Weight terazosin 5 2021-0 Yes = 1 cap, Me moria mg oral 8-09 PO, Daily, l capsule 20:22: # 90 cap, Terra nn 00 3 Refill(s), Pharmacy: [facility] #[id number], 154.94, cm, 06/09/22 14:36:00 CDT, Height, 118.636, kg, 06/09/22 14:36:00 CDT, Weight hydrochloro 2021-0 Yes 0.5 tab, Me moria thiazide-tr 8-09 PO, Daily, l iamterene 20:22: # 45 tab, Her brown 50 mg-75 mg 00 3 oral tablet Refill(s), Pharmacy: [facility] #[id number], 154.94, cm, 06/09/22 14:36:00 CDT, Height, 118.636, kg, 06/09/22 14:36:00 CDT, Weight Metoprolol 2021-0 Yes = 1 tab, Mem oria Succinate 8-09 PO, Daily, l ER 100 mg 20:22: # 90 tab, Her brown oral 00 3 tablet, Refill(s), extended Pharmacy: [facility] [place] [facility] #[id number], 154.94, cm, 06/09/22 14:36:00 CDT, Height, 118.636, kg, 06/09/22 14:36:00 CDT, Weight telmisartan 2021-0 Yes = 1 tab, Me moria 80 mg oral 8-09 PO, Daily, l tablet 20:22: # 90 tab, Jose L n 00 3 Refill(s), Pharmacy: [facility] #[id number], 154.94, cm, 06/09/22 14:36:00 CDT, Height, 118.636, kg, 06/09/22 14:36:00 CDT, Weight terazosin 5 2021-0 Yes = 1 cap, Me moria mg oral 8-09 PO, Daily, l capsule 20:22: # 90 cap, Terra nn 00 3 Refill(s), Pharmacy: [facility] #[id number], 154.94, cm, 06/09/22 14:36:00 CDT, Height, 118.636, kg, 06/09/22 14:36:00 CDT, Weight hydrochloro 2021-0 Yes 0.5 tab, Me moria thiazide-tr 8- PO, Daily, l iamterene 20:22: # 45 tab, Her brown 50 mg-75 mg 00 3 oral tablet Refill(s), Pharmacy: [facility] #[id number], 154.94, cm, 06/09/22 14:36:00 CDT, Height, 118.636, kg, 06/09/22 14:36:00 CDT, Weight Metoprolol 2021-0 Yes = 1 tab, Mem oria Succinate 8- PO, Daily, l ER 100 mg 20:22: # 90 tab, Her brown oral 00 3 tablet, Refill(s), extended Pharmacy: release [facility] #[id number], 154.94, cm, 06/09/22 14:36:00 CDT, Height, 118.636, kg, 06/09/22 14:36:00 CDT, Weight telmisartan 0 Yes = 1 tab, Me moria 80 mg oral - PO, Daily, l tablet 20:22: # 90 tab, Jose L n 00 3 Refill(s), Pharmacy: [facility] #[id number], 154.94, cm, 06/09/22 14:36:00 CDT, Height, 118.636, kg, 06/09/22 14:36:00 CDT, Weight terazosin 5 0 Yes = 1 cap, Me moria mg oral - PO, Daily, l capsule 20:22: # 90 cap, Terra nn 00 3 Refill(s), Pharmacy: [facility] #[id number], 154.94, cm, 06/09/22 14:36:00 CDT, Height, 118.636, kg, 06/09/22 14:36:00 CDT, Weight hydrochloro 2021-0 Yes 0.5 tab, Me moria thiazide-tr 8-09 PO, Daily, l iamterene 20:22: # 45 tab, Her brown 50 mg-75 mg 00 3 oral tablet Refill(s), Pharmacy: [facility] #[id number], 154.94, cm, 06/09/22 14:36:00 CDT, Height, 118.636, kg, 06/09/22 14:36:00 CDT, Weight Metoprolol 0 Yes = 1 tab, Mem oria Succinate 8-09 PO, Daily, l ER 100 mg 20:22: # 90 tab, Her brown oral 00 3 tablet, Refill(s), extended Pharmacy: [facility] [place] [facility] #[id number], 154.94, cm, 06/09/22 14:36:00 CDT, Height, 118.636, kg, 06/09/22 14:36:00 CDT, Weight terazosin 5 Yes = 1 cap, Me moria mg oral 8-09 PO, Daily, l capsule 20:22: # 90 cap, Terra nn 00 3 Refill(s), Pharmacy: [facility] #[id number], 154.94, cm, 06/09/22 14:36:00 CDT, Height, 118.636, kg, 06/09/22 14:36:00 CDT, Weight telmisartan Yes = 1 tab, Me moria 80 mg oral 8-09 PO, Daily, l tablet 20:22: # 90 tab, Jose L n 00 3 Refill(s), Pharmacy: [facility] #[id number], 154.94, cm, 06/09/22 14:36:00 CDT, Height, 118.636, kg, 06/09/22 14:36:00 CDT, Weight telmisartan 0 Yes = 1 tab, Me moria 80 mg oral 3-08 PO, Daily, l tablet 18:06: # 30 tab, Jose L n 00 11 Refill(s), Pharmacy: [facility] #[id number], 154.94, cm, 09/01/21 8:58:00 CDT, Height, 105, kg, 09/01/21 8:58:00 CDT, Weight telmisartan 0 Yes = 1 tab, Me moria 80 mg oral 3-08 PO, Daily, l tablet 18:06: # 30 tab, Jose L n 00 11 Refill(s), Pharmacy: [facility] #[id number], 154.94, cm, 09/01/21 8:58:00 CDT, Height, 105, kg, 09/01/21 8:58:00 CDT, Weight telmisartan 2021-0 Yes = 1 tab, Me moria 80 mg oral 3-08 PO, Daily, l tablet 18:06: # 30 tab, Jose L n 00 11 Refill(s), Pharmacy: [facility] #[id number], 154.94, cm, 09/01/21 8:58:00 CDT, Height, 105, kg, 09/01/21 8:58:00 CDT, Weight telmisartan 2021-0 Yes = 1 tab, Me moria 80 mg oral 3-08 PO, Daily, l tablet 18:06: # 30 tab, Jose L n 00 11 Refill(s), Pharmacy: [facility] #[id number], 154.94, cm, 09/01/21 8:58:00 CDT, Height, 105, kg, 09/01/21 8:58:00 CDT, Weight telmisartan 2021-0 Yes = 1 tab, Me moria 80 mg oral 3-08 PO, Daily, l tablet 18:06: # 30 tab, Jose L n 00 11 Refill(s), [id number], 154.94, cm, 09/01/21 8:58:00 CDT, Height, 105, kg, 09/01/21 8:58:00 CDT, Weight telmisartan 2021-0 Yes = 1 tab, Me moria 80 mg oral 3-08 PO, Daily, l tablet 18:06: # 30 tab, Jsoe L n 00 11 Refill(s), Pharmacy: [facility] #[id number], 154.94, cm, 09/01/21 8:58:00 CDT, Height, 105, kg, 09/01/21 8:58:00 CDT, Weight telmisartan 2021-0 Yes = 1 tab, Me moria 80 mg oral 3-08 PO, Daily, l tablet 18:06: # 30 tab, Jose L n 00 11 Refill(s), [id number], 154.94, cm, 09/01/21 8:58:00 CDT, Height, 105, kg, 09/01/21 8:58:00 CDT, Weight telmisartan Yes = 1 tab, Me moria 80 mg oral 3-08 PO, Daily, l tablet 18:06: # 30 tab, Jose L n 00 11 Refill(s), Pharmacy: [facility] #[id number], 154.94, cm, 09/01/21 8:58:00 CDT, Height, 105, kg, 09/01/21 8:58:00 CDT, Weight telmisartan Yes = 1 tab, Me moria 80 mg oral 3-08 PO, Daily, l tablet 18:06: # 30 tab, Jose L n 00 11 Refill(s), Pharmacy: [facility] #[id number], 154.94, cm, 09/01/21 8:58:00 CDT, Height, 105, kg, 09/01/21 8:58:00 CDT, Weight aspirin 81 aspirin 81 2020-11 No aspirin 81 [place] mg mg 1-15 mg Orthope tablet,romi tablet,romi 00:00: tablet,del dic yed release yed release 00 ayed S ports Take 1 Take 1 release Medicin tablet by tablet by Take 1 e mouth twice mouth twice tablet by a day a day mouth twice a day meloxicam meloxicam 2020-11 No meloxicam [place] 7.5 mg 7.5 mg 1-15 7.5 mg Orthope tablet Take tablet Take 00:00: tablet dic 1 tablet by 1 tablet by 00 Take 1 Sports mouth twice mouth twice tablet by Medicin a day as a day as mouth e needed for needed for twice a pain pain day as needed for pain ondansetron ondansetron 2020-11 No ondansetro [place] HCl 8 mg HCl 8 mg 1-15 n HCl 8 mg O rthope tablet Take tablet Take 00:00: tablet dic 1 tablet by 1 tablet by 00 Take 1 Sports mouth three mouth three tablet by Medicin times a day times a day mouth e as needed as needed three for nausea for nausea times a and and day as vomiting vomiting needed for nausea and vomiting betamethaso 2020-11 Yes Apply Metho di ne, 0-[address] augmented, 00:00: [facility]osp[facility] (DIPROLENE) 00 l 0.05 % cream betamethaso 2020-1 Yes Apply Metho di ne, 0-[address] augmented, 00:00: Hospita (DIPROLENE) 00 l 0.05 % cream Hydrochloro 1-0 Yes 0.5 tab, Me moria thiazide 50 8-05 PO, Daily, l MG / 16:07: # 45 tab, [place] Triamterene 00 3 75 MG Oral Refill(s), Tablet Pharmacy: [facility], 154.94, cm, 05/19/21 14:50:00 CDT, Height, 102.727, kg, 05/19/21 14:50:00 CDT, Weight Hydrochloro 2020-0 Yes 0.5 tab, Me moria thiazide 50 8-05 PO, Daily, l MG / 16:07: # 45 tab, [place] Triamterene 00 3 75 MG Oral Refill(s), Tablet Pharmacy: [facility], 154.94, cm, 05/19/21 14:50:00 CDT, Height, 102.727, kg, 05/19/21 14:50:00 CDT, Weight Hydrochloro 1-0 Yes 0.5 tab, Me moria thiazide 50 8-05 PO, Daily, l MG / 16:07: # 45 tab, [place] Triamterene 00 3 75 MG Oral Refill(s), Tablet Pharmacy: [facility], 154.94, cm, 05/19/21 14:50:00 CDT, Height, 102.727, kg, 05/19/21 14:50:00 CDT, Weight Hydrochloro 1-0 Yes 0.5 tab, Me moria thiazide 50 8-05 PO, Daily, l MG / 16:07: # 45 tab, [place] Triamterene 00 3 75 MG Oral Refill(s), Tablet Pharmacy: [facility], 154.94, cm, 05/19/21 14:50:00 CDT, Height, 102.727, kg, 05/19/21 14:50:00 CDT, Weight Hydrochloro 2021-0 Yes 0.5 tab, Me moria thiazide 50 8-05 PO, Daily, l MG / 16:07: # 45 tab, [place] Triamterene 00 3 75 MG Oral Refill(s), Tablet Pharmacy: [facility], 154.94, cm, 05/19/21 14:50:00 CDT, Height, 102.727, kg, 05/19/21 14:50:00 CDT, Weight Hydrochloro 2021-0 Yes 0.5 tab, Me moria thiazide 50 8-05 PO, Daily, l MG / 16:07: # 45 tab, [place] Triamterene 00 3 75 MG Oral Refill(s), Tablet Pharmacy: [facility], 154.94, cm, 05/19/21 14:50:00 CDT, Height, 102.727, kg, 05/19/21 14:50:00 CDT, Weight Hydrochloro 2021-0 Yes 0.5 tab, Me [facility] thiazide 50 8-05 PO, Daily, l MG / 16:07: # 45 tab, [place] Triamterene 00 3 75 MG Oral Refill(s), Tablet Pharmacy: [facility] 482, 154.94, cm, 05/19/21 14:50:00 CDT, Height, 102.727, kg, 05/19/21 14:50:00 CDT, Weight Hydrochloro 2021-0 Yes 0.5 tab, Me [facility] thiazide 50 8-05 PO, Daily, l MG / 16:07: # 45 tab, [place] Triamterene 00 3 75 MG Oral Refill(s), Tablet Pharmacy: [facility] 482, 154.94, cm, 05/19/21 14:50:00 CDT, Height, 102.727, kg, 05/19/21 14:50:00 CDT, Weight Hydrochloro 2021-0 Yes 0.5 tab, [place] [facility] thiazide 50 8-05 PO, Daily, l MG / 16:07: # 45 tab, [place] Triamterene 00 3 75 MG Oral Refill(s), Tablet Pharmacy: [facility] 482, 154.94, cm, 05/19/21 14:50:00 CDT, Height, 102.727, kg, 05/19/21 14:50:00 CDT, Weight Hydrochloro Yes 0.5 tab, [place] thiazide 50 8-05 PO, Daily, l MG / 16:07: # 45 tab, [place] Triamterene 00 3 75 MG Oral Refill(s), Tablet Pharmacy: [facility] 482, 154.94, cm, 05/19/21 14:50:00 CDT, Height, 102.727, kg, 05/19/21 14:50:00 CDT, Weight telmisartan 2020- No 80mg QD Take 80 mg [facility] (MICARDIS) 7-30 07-[address] 80 MG 21:19: 00:00 [facility] :00 morning. l multivit-mi Yes 1{tbl} QD Take 1 Me thodi n/iron/foli 7-[address] c/lutein 21:19: [facility] (CENTRUM 29 daily. l SILVER WOMEN ORAL) ASPIRIN Yes 162mg QD Take 162 Metho di ORAL 7-[address] 21:19: [facility] 29 daily. l hydrocodone hydrocodone No hydrocodon [place] 10 10 7-30 e 10 [facility] mg-acetamin mg-acetamin 00:00: mg-acetami dic ophen 325 ophen 325 00 nophen 325 Sports mg tablet mg tablet mg tablet Medicin Take 1 Take 1 Take 1 e tablet by tablet by tablet by mouth every mouth every mouth six hours six hours every six as needed as needed hours as for pain for pain needed for pain methocarbam methocarbam No methocarba [place] ol 500 mg ol 500 mg 7-30 mol 500 mg [facility] tablet Take tablet Take 00:00: tablet dic 1 tablet by 1 tablet by 00 Take 1 Sports mouth four mouth four tablet by Medicin times a day times a day mouth four e as needed as needed times a for muscle for muscle day as spasms spasms needed for muscle spasms tramadol 50 tramadol 50 No tramadol [place] mg tablet mg tablet 7-30 50 mg Orth ope Take 1 Take 1 00:00: tablet dic tablet by tablet by 00 Take 1 Spo rts mouth every mouth every tablet by Medicin six hours six hours mouth e as needed as needed every six for pain for pain hours as needed for pain magnesium Yes 800mg QD Take 2 Metho di oxide 7-[address] (MAG-OX) 00:00: (800 mg Hospit a 400 mg 00 total) by l (241.3 mg mouth magnesium) daily. tablet gabapentin Yes 300mg Q.5D Take 3 Meth marissa (NEURONTIN) 7-[address] 100 mg 00:00: (300 mg Hospita capsule 00 total) by l mouth 2 (two) times a day. sennosides- 2020- No 1{tbl} Q.5D Take 1 M ethodi docusate 05-30-[address] sodium 00:00: 04:59 mouth 2 Hospita (SENOKOT-S) 00 :00 (two) l 8.6-50 mg times a per tablet day for 30 days. cefTRIAXone 2020- No 2g Q24H Infuse 2 g [facility] (ROCEPHIN) 05-30-[address] 2 g IVPB in 00:00: 04:59 venous Hos jana 100 ML 00 :00 catheter l (with daily for adapter) 30 days. acetaminoph 2020- No 650mg Q6H Take 2 Me thodi en -30 -[address] (TYLENOL) 00:00: 04:59 (650 mg Hosp karlos 325 MG 00 :00 total) by l tablet mouth every 6 (six) hours as needed for mild pain for up to 30 days. HYDROcodone 2020- [place] 784[address] 1{tbl} Q6H Take 1 [facility] -acetaminop -30 08-[address] hen (NORCO) 00:00: 04:59 mouth [facility]osp karlos 7.5-325 mg 00 :00 every 6 l per tablet (six) hours as needed for moderate pain or severe pain for up to 10 days .acute pain. Max Daily Amount: 4 tablets Hydrochloro 2020-0 Yes 0.5 tab, Me moria thiazide 50 7-19 PO, Daily, l MG / 19:59: 0 [facility] Triamterene 00 Refill(s) 75 MG Oral Tablet Hydrochloro 2020-0 Yes 0.5 tab, Me moria thiazide 50 7-19 PO, Daily, l MG / 19:59: 0 [facility] Triamterene 00 Refill(s) 75 MG Oral Tablet Hydrochloro 2020-0 Yes 0.5 tab, Me moria thiazide 50 7-19 PO, Daily, l MG / 19:59: 0 [place] Triamterene 00 Refill(s) 75 MG Oral Tablet Hydrochloro 2020-0 Yes 0.5 tab, Me moria thiazide 50 7-19 PO, Daily, l MG / 19:59: 0 [facility] Triamterene 00 Refill(s) 75 MG Oral Tablet Hydrochloro 2020-0 Yes 0.5 tab, Me moria thiazide 50 7-19 PO, Daily, l MG / 19:59: 0 [place] Triamterene 00 Refill(s) 75 MG Oral Tablet Hydrochloro 2020-0 Yes 0.5 tab, Me moria thiazide 50 7-19 PO, Daily, l MG / 19:59: 0 [place] Triamterene 00 Refill(s) 75 MG Oral Tablet Hydrochloro 2020-0 Yes 0.5 tab, Me moria thiazide 50 7-19 PO, Daily, l MG / 19:59: 0 [facility] Triamterene 00 Refill(s) 75 MG Oral Tablet Hydrochloro 2020-0 Yes 0.5 tab, Me moria thiazide 50 7-19 PO, Daily, l MG / 19:59: 0 [facility] Triamterene 00 Refill(s) 75 MG Oral Tablet Hydrochloro 2020-0 Yes 0.5 tab, Me moria thiazide 50 7-19 PO, Daily, l MG / 19:59: 0 [facility] Triamterene 00 Refill(s) 75 MG Oral Tablet Hydrochloro 2020-0 Yes 0.5 tab, Me moria thiazide 50 7-19 PO, Daily, l MG / 19:59: 0 [facility] Triamterene 00 Refill(s) 75 MG Oral Tablet sulfamethox 2020-0 2020- No 1{tbl} Q.5D Take 1 M ethodi azole-trime 5-10 05-[address] 00:00: 04:59 mouth 2 Hospit a (Bactrim 00 :00 (two) l DS) 800-160 times a mg per day for 14 tablet days. terazosin 5 2020-0 Yes = 1 cap, Me moria mg oral 6-12 PO, Daily, l capsule 15:31: # 90 ea, 3 Herm lynn 00 Refill(s), Pharmacy: [facility], 154.94, cm, 04/18/19 14:41:00 CDT, Height, 107.727, kg, 04/18/19 14:41:00 CDT, Weight terazosin 5 2020-0 Yes = 1 cap, Me moria mg oral 6-12 PO, Daily, l capsule 15:31: # 90 ea, 3 Herm lynn 00 Refill(s), Pharmacy: [facility] 482, 154.94, cm, 04/18/19 14:41:00 CDT, Height, 107.727, kg, 04/18/19 14:41:00 CDT, Weight terazosin 5 2020-0 Yes = 1 cap, Me moria mg oral 6-12 PO, Daily, l capsule 15:31: # 90 ea, 3 Herm lynn 00 Refill(s), Pharmacy: [facility] 482, 154.94, cm, 04/18/19 14:41:00 CDT, Height, 107.727, kg, 04/18/19 14:41:00 CDT, Weight terazosin 5 2020-0 Yes = 1 cap, Me moria mg oral 6-12 PO, Daily, l capsule 15:31: # 90 ea, 3 Herm lynn 00 Refill(s), Pharmacy: [facility] 482, 154.94, cm, 04/18/19 14:41:00 CDT, Height, 107.727, kg, 04/18/19 14:41:00 CDT, Weight terazosin 5 2020-0 Yes = 1 cap, Me moria mg oral 6-12 PO, Daily, l capsule 15:31: # 90 ea, 3 Herm lynn 00 Refill(s), Pharmacy: [facility] 482, 154.94, cm, 04/18/19 14:41:00 CDT, Height, 107.727, kg, 04/18/19 14:41:00 CDT, Weight terazosin 5 2020-0 Yes = 1 cap, Me moria mg oral 6-12 PO, Daily, l capsule 15:31: # 90 ea, 3 Herm lynn 00 Refill(s), Pharmacy: [facility] 482, 154.94, cm, 04/18/19 14:41:00 CDT, Height, 107.727, kg, 04/18/19 14:41:00 CDT, Weight terazosin 5 2020-0 Yes = 1 cap, Me moria mg oral 6-12 PO, Daily, l capsule 15:31: # 90 ea, 3 Herm lynn 00 Refill(s), Pharmacy: [facility] 482, 154.94, cm, 04/18/19 14:41:00 CDT, Height, 107.727, kg, 04/18/19 14:41:00 CDT, Weight terazosin 5 2020-0 Yes = 1 cap, Me moria mg oral 6-12 PO, Daily, l capsule 15:31: # 90 ea, 3 Herm lynn 00 Refill(s), Pharmacy: [facility] 482, 154.94, cm, 04/18/19 14:41:00 CDT, Height, 107.727, kg, 04/18/19 14:41:00 CDT, Weight terazosin 5 2020-0 Yes = 1 cap, Me moria mg oral 6-12 PO, Daily, l capsule 15:31: # 90 ea, 3 Herm lynn 00 Refill(s), Pharmacy: [facility] 482, 154.94, cm, 04/18/19 14:41:00 CDT, Height, 107.727, kg, 04/18/19 14:41:00 CDT, Weight terazosin 5 2020-0 Yes = 1 cap, Me moria mg oral 6-12 PO, Daily, l capsule 15:31: # 90 ea, 3 Herm lynn 00 Refill(s), Pharmacy: [facility] 482, 154.94, cm, 04/18/19 14:41:00 CDT, Height, 107.727, kg, 04/18/19 14:41:00 CDT, Weight telmisartan 2020-0 Yes 80 mg = 1 M emoria 80 MG Oral 3-05 tab, PO, l Tablet 21:01: Daily, # [place] [Micardis] 00 90 tab, 3 Refill(s), Pharmacy: [facility] telmisartan 2020-0 Yes 80 mg = 1 M emoria 80 MG Oral 3-05 tab, PO, l Tablet 21:01: Daily, # Christiano [Micardis] 00 90 tab, 3 Refill(s), Pharmacy: [facility] telmisartan 2020-0 Yes 80 mg = 1 M emoria 80 MG Oral 3-05 tab, PO, l Tablet 21:01: Daily, # Christiano [Micardis] 00 90 tab, 3 Refill(s), Pharmacy: [facility] telmisartan 2020-0 Yes 80 mg = 1 M emoria 80 MG Oral 3-05 tab, PO, l Tablet 21:01: Daily, # [place] [Micardis] 00 90 tab, 3 Refill(s), Pharmacy: [facility] telmisartan 2020-0 Yes 80 mg = 1 M emoria 80 MG Oral 3-05 tab, PO, l Tablet 21:01: Daily, # Christian[place] [Micardis] 00 90 tab, 3 Refill(s), Pharmacy: [facility] telmisartan 2020-0 Yes 80 mg = 1 M emoria 80 MG Oral 3-05 tab, PO, l Tablet 21:01: Daily, # [place] [Micardis] 00 90 tab, 3 Refill(s), Pharmacy: [facility] telmisartan 2020-0 Yes 80 mg = 1 M emoria 80 MG Oral 3-05 tab, PO, l Tablet 21:01: Daily, # [place] [Micardis] 00 90 tab, 3 Refill(s), Pharmacy: [facility] telmisartan 2020-0 Yes 80 mg = 1 M emoria 80 MG Oral 3-05 tab, PO, l Tablet 21:01: Daily, # [place] [Micardis] 00 90 tab, 3 Refill(s), Pharmacy: [facility] telmisartan 2020-0 Yes 80 mg = 1 M emoria 80 MG Oral 3-05 tab, PO, l Tablet 21:01: Daily, # [place] [Micardis] 00 90 tab, 3 Refill(s), Pharmacy: [place] [address] telmisartan 2019-0 Yes 80 mg = 1 M emoria 80 MG Oral 3-05 tab, PO, l Tablet 21:01: Daily, # Christian[place] [Micardis] 00 90 tab, 3 Refill(s), Pharmacy: [facility] Metronidazo 2019-0 Yes 500 mg = 1 Memoria le 500 MG 2-26 tab, PO, l Oral Tablet 22:06: Q8H, X 10 H ermann 00 day, # 30 tab, 0 Refill(s), Pharmacy: [place] [address] Metronidazo 2020-0 Yes 500 mg = 1 Memoria le 500 MG 2-26 tab, PO, l Oral Tablet 22:06: Q8H, X 10 H ermann 00 day, # 30 tab, 0 Refill(s), Pharmacy: [place] [address] Metronidazo 2019-0 Yes 500 mg = 1 Memoria le 500 MG 2-26 tab, PO, l Oral Tablet 22:06: Q8H, X 10 H ermann 00 day, # 30 tab, 0 Refill(s), Pharmacy: [place] [address] Metronidazo 2020-0 Yes 500 mg = 1 Memoria le 500 MG 2-26 tab, PO, l Oral Tablet 22:06: Q8H, X 10 H ermann 00 day, # 30 tab, 0 Refill(s), Pharmacy: [place] [address] Metronidazo 2019-0 Yes 500 mg = 1 Memoria le 500 MG 2-26 tab, PO, l Oral Tablet 22:06: Q8H, X 10 H ermann 00 day, # 30 tab, 0 Refill(s), Pharmacy: [place] [address] Metronidazo 2020-0 Yes 500 mg = 1 Memoria le 500 MG 2-26 tab, PO, l Oral Tablet 22:06: Q8H, X 10 H ermann 00 day, # 30 tab, 0 Refill(s), Pharmacy: [facility] Metronidazo 2020-0 Yes 500 mg = 1 Memoria le 500 MG 2-26 tab, PO, l Oral Tablet 22:06: Q8H, X 10 H ermann 00 day, # 30 tab, 0 Refill(s), Pharmacy: [place] [address] Metronidazo 2020-0 Yes 500 mg = 1 Memoria le 500 MG 2-26 tab, PO, l Oral Tablet 22:06: Q8H, X 10 H erm day, # 30 tab, 0 Refill(s), Pharmacy: [facility] Metronidazo 2019-0 Yes 500 mg = 1 Memoria le 500 MG 2-26 tab, PO, l Oral Tablet 22:06: Q8H, X 10 H erm day, # 30 tab, 0 Refill(s), Pharmacy: [facility] Metronidazo 2019-0 Yes 500 mg = 1 Memoria le 500 MG 2-26 tab, PO, l Oral Tablet 22:06: Q8H, X 10 H erm day, # 30 tab, 0 Refill(s), Pharmacy: [facility] telmisartan Yes 80 mg = 1 M emoria 80 MG Oral 3-22 tab, PO, l Tablet 19:33: Daily, # [place] [Micardis] 00 90 tab, 3 Refill(s), Pharmacy: [facility] telmisartan Yes 80 mg = 1 M emoria 80 MG Oral 3-22 tab, PO, l Tablet 19:33: Daily, # [place] [Micardis] 00 90 tab, 3 Refill(s), Pharmacy: [facility] telmisartan Yes 80 mg = 1 M emoria 80 MG Oral 3-22 tab, PO, l Tablet 19:33: Daily, # [place] [Micardis] 00 90 tab, 3 Refill(s), Pharmacy: [facility] telmisartan Yes 80 mg = 1 M emoria 80 MG Oral 3-22 tab, PO, l Tablet 19:33: Daily, # [place] [Micardis] 00 90 tab, 3 Refill(s), Pharmacy: [facility] telmisartan Yes 80 mg = 1 M emoria 80 MG Oral 3-22 tab, PO, l Tablet 19:33: Daily, # [place] [Micardis] 00 90 tab, 3 Refill(s), Pharmacy: [facility] telmisartan Yes 80 mg = 1 M emoria 80 MG Oral 3-22 tab, PO, l Tablet 19:33: Daily, # [place] [Micardis] 00 90 tab, 3 Refill(s), Pharmacy: [facility] telmisartan Yes 80 mg = 1 M emoria 80 MG Oral 3-22 tab, PO, l Tablet 19:33: Daily, # [place] [Micardis] 00 90 tab, 3 Refill(s), Pharmacy: [facility] telcosartan Yes 80 mg = 1 M emoria 80 MG Oral 3-22 tab, PO, l Tablet 19:33: Daily, # Christian[place] [Micardis] 00 90 tab, 3 Refill(s), Pharmacy: [facility] telmisartan Yes 80 mg = 1 M emoria 80 MG Oral 3-22 tab, PO, l Tablet 19:33: Daily, # [place] [Micardis] 00 90 tab, 3 Refill(s), Pharmacy: [facility] telmisartan Yes 80 mg = 1 M emoria 80 MG Oral 3-22 tab, PO, l Tablet 19:33: Daily, # [place] [Micardis] 00 90 tab, 3 Refill(s), Pharmacy: [facility] telmisartan 2022- No 80mg QD Take 80 mg [facility] (MICARDIS) 01-[address] 80 MG 00:00: 00:00 daily. Hospita tablet 00 :00 l telmisartan 2022- No 80mg QD Take 80 mg [facility] (MICARDIS) 01-[address] 80 MG 00:00: 00:00 daily. Hospita tablet 00 :00 l terazosin 2018-0 Yes 5mg QD Take 5 mg Met hodi (HYTRIN) 5 9-[address] MG capsule 00:00: nightly. Hos jana 00 l terazosin 2018-0 Yes 5mg QD Take 5 mg Met hodi (HYTRIN) 5 9-[address] MG capsule 00:00: nightly. Hos jana 00 l terazosin 2018-0 Yes 5mg QD Take 5 mg Met hodi (HYTRIN) 5 9-[address] MG capsule 00:00: nightly. Hos jana 00 l Metoprolol Yes See Memoria Succinate 06-21 Instructio l ER 100 mg 22:22: ns, TAKE Herm lynn oral 49 ONE TABLET tablet, BY MOUTH extended ONCE release DAILY, # 90 tab, 3 Refill(s), Pharmacy: [facility] Metoprolol Yes See Memoria Succinate 06-21 Instructio l ER 100 mg 22:22: ns, TAKE Herm lynn oral 49 ONE TABLET tablet, BY MOUTH extended ONCE release DAILY, # 90 tab, 3 Refill(s), Pharmacy: [facility] Metoprolol Yes See Memoria Succinate 06-21 Instructio l ER 100 mg 22:22: ns, TAKE Herm lynn oral 49 ONE TABLET tablet, BY MOUTH extended ONCE release DAILY, # 90 tab, 3 Refill(s), Pharmacy: [facility] Metoprolol Yes See Memoria Succinate 06-21 Instructio l ER 100 mg 22:22: ns, TAKE Herm lynn oral 49 ONE TABLET tablet, BY MOUTH extended ONCE release DAILY, # 90 tab, 3 Refill(s), Pharmacy: [facility] Metoprolol Yes See Memoria Succinate 06-21 Instructio l ER 100 mg 22:22: ns, TAKE Herm lynn oral 49 ONE TABLET tablet, BY MOUTH extended ONCE release DAILY, # 90 tab, 3 Refill(s), Pharmacy: [facility] Metoprolol Yes See Memoria Succinate 06-21 Instructio l ER 100 mg 22:22: ns, TAKE Herm lynn oral 49 ONE TABLET tablet, BY MOUTH extended ONCE release DAILY, # 90 tab, 3 Refill(s), Pharmacy: [facility] Metoprolol Yes See Memoria Succinate 06-21 Instructio l ER 100 mg 22:22: ns, TAKE Herm lynn oral 49 ONE TABLET tablet, BY MOUTH extended ONCE release DAILY, # 90 tab, 3 Refill(s), Pharmacy: [facility] Metoprolol Yes See Memoria Succinate 06-21 Instructio l ER 100 mg 22:22: ns, TAKE Herm lynn oral 49 ONE TABLET tablet, BY MOUTH extended ONCE release DAILY, # 90 tab, 3 Refill(s), Pharmacy: [facility] 482 Metoprolol Yes See Memoria Succinate 8- Instructio l ER 100 mg 22:22: ns, TAKE Herm lynn oral 49 ONE TABLET tablet, BY MOUTH extended ONCE release DAILY, # 90 tab, 3 Refill(s), Pharmacy: [facility] 482 Metoprolol Yes See Memoria Succinate 8- Instructio l ER 100 mg 22:22: ns, TAKE Herm lynn oral 49 ONE TABLET tablet, BY MOUTH extended ONCE release DAILY, # 90 tab, 3 Refill(s), Pharmacy: [facility] 482 triamterene Yes .5{tbl} QD Take 0.5 [facility] -hydrochlor 8-[address] othiazid 00:00: mouth Hospita (MAXZIDE) 00 every l 75-50 mg morning. per tablet Takes 1/2 tab in the morning triamterene 2017-2021- No .5{tbl} QD Take 0.5 [facility] -hydrochlor 8-12 13- tablets by s t othiazid 00:00: 00:00 mouth [facility]ospita (MAXZIDE) 00 :00 every l 75-50 mg morning. per tablet Takes 1/2 tab in the morning triamterene 2017-2021- No .5{tbl} QD Take 0.5 [facility] -hydrochlor 8- 12- tablets by s t othiazid 00:00: 00:00 mouth [facility]ospita (MAXZIDE) 00 :00 every l 75-50 mg morning. per tablet Takes 1/2 tab in the morning metoprolol Yes 100mg QD Take 100 Me thodi succinate 7-[address] XL 00:00: mouth [facility]osp[facility] (TOPROL-XL) 00 every l 100 mg 24 morning. hr tablet metoprolol 2022- No 50mg QD Take 1 Meth marissa succinate 05-09- tablet (50 st XL 00:00: 00:00 mg total) Hospita (TOPROL-XL) 00 :00 by mouth l 50 mg 24 hr daily. tablet metoprolol 2022- No 50mg QD Take 1 Meth marissa succinate 05-09- tablet (50 st XL 00:00: 00:00 mg total) Hospita (TOPROL-XL) 00 :00 by mouth l 50 mg 24 hr daily. tablet irbesartan 2018-0 Yes 150 mg = 1 M emoria 150 MG Oral 5-02 tab, PO, l Tablet 12:38: Daily, # Christiano [Avapro] 00 90 tab, 3 Refill(s), Pharmacy: [facility] irbesartan 2018-0 Yes 150 mg = 1 M emoria 150 MG Oral 5-02 tab, PO, l Tablet 12:38: Daily, # [place] [Avapro] 00 90 tab, 3 Refill(s), Pharmacy: [facility] irbesartan 2018-0 Yes 150 mg = 1 M emoria 150 MG Oral 5-02 tab, PO, l Tablet 12:38: Daily, # Christian[place] [Avapro] 00 90 tab, 3 Refill(s), Pharmacy: [facility] irbesartan 2018-0 Yes 150 mg = 1 M emoria 150 MG Oral 5-02 tab, PO, l Tablet 12:38: Daily, # [place] [Avapro] 00 90 tab, 3 Refill(s), Pharmacy: [facility] irbesartan 2018-0 Yes 150 mg = 1 M emoria 150 MG Oral 5-02 tab, PO, l Tablet 12:38: Daily, # [place] [Avapro] 00 90 tab, 3 Refill(s), Pharmacy: [facility] irbesartan 2018-0 Yes 150 mg = 1 M emoria 150 MG Oral 5-02 tab, PO, l Tablet 12:38: Daily, # [place] [Avapro] 00 90 tab, 3 Refill(s), Pharmacy: [facility] irbesartan 2018-0 Yes 150 mg = 1 M emoria 150 MG Oral 5-02 tab, PO, l Tablet 12:38: Daily, # [place] [Avapro] 00 90 tab, 3 Refill(s), Pharmacy: [facility] irbesartan 2018-0 Yes 150 mg = 1 M emoria 150 MG Oral 5-02 tab, PO, l Tablet 12:38: Daily, # [place] [Avapro] 00 90 tab, 3 Refill(s), Pharmacy: [facility] 482 irbesartan 2018-0 Yes 150 mg = 1 M emoria 150 MG Oral 5-02 tab, PO, l Tablet 12:38: Daily, # [place] [Avapro] 00 90 tab, 3 Refill(s), Pharmacy: [facility] 48 irbesartan Yes 150 mg = 1 M emoria 150 MG Oral 5-02 tab, PO, l Tablet 12:38: Daily, # [place] [Avapro] 00 90 tab, 3 Refill(s), Pharmacy: [facility] multivitami 2014-11 Yes 1 tab, PO, Memoria n 2-30 Daily, 0 l 19:43: Refill(s) aspirin 2014-11 Yes 162 mg = 2 M emoria mg tablet, 2-30 tab, PO, l enteric 19:43: Daily, # Jose L n coated 00 90 tab, 3 Refill(s) multivitami 2014-11 Yes 1 tab, PO, Memoria n 2-30 Daily, 0 l 19:43: Refill(s) Christiano 00 aspirin 2014-11 Yes 162 mg = 2 M emoria mg tablet, 2-30 tab, PO, l enteric 19:43: Daily, # Jose L n coated 00 90 tab, 3 Refill(s) multivitami 2014-11 Yes 1 tab, PO, Memoria n 2-30 Daily, 0 l 19:43: Refill(s) aspirin 2014-11 Yes 162 mg = 2 M emoria mg tablet, 2-30 tab, PO, l enteric 19:43: Daily, # Jose L n coated 00 90 tab, 3 Refill(s) multivitami 2014-11 Yes 1 tab, PO, Memoria n 2-30 Daily, 0 l 19:43: Refill(s) aspirin 2014-11 Yes 162 mg = 2 M emoria mg tablet, 2-30 tab, PO, l enteric 19:43: Daily, # Jose L n coated 00 90 tab, 3 Refill(s) multivitami 2014-11 Yes 1 tab, PO, Memoria n 2-30 Daily, 0 l 19:43: Refill(s) aspirin 2014-11 Yes 162 mg = 2 M emoria mg tablet, 2-30 tab, PO, l enteric 19:43: Daily, # Jose L n coated 00 90 tab, 3 Refill(s) multivitami 2014-11 Yes 1 tab, PO, Memoria n 2-30 Daily, 0 l 19:43: Refill(s) Christiano 00 aspirin 81 2014-11 Yes 162 mg = 2 M emoria mg tablet, 2-30 tab, PO, l enteric 19:43: Daily, # Jose L n coated 00 90 tab, 3 Refill(s) acetaminoph acetaminoph No acetaminop Debby en 300 en 300 hen 300 [facility] mg-codeine mg-codeine mg-codeine dic 30 mg 30 mg 30 mg Sports tablet TAKE tablet TAKE tablet Medicin 1 TABLET BY 1 TABLET BY TAKE 1 e MOUTH EVERY MOUTH EVERY TABLET BY 4 HOURS 4 HOURS MOUTH NEEDED FOR NEEDED FOR EVERY 4 PAIN FOR 7 PAIN FOR 7 HOURS DAYS DAYS NEEDED FOR PAIN FOR 7 DAYS aspirin 81 aspirin 81 No aspirin 81 Debby mg chewable mg chewable mg O rthope tablet CHEW tablet CHEW chewable dic AND SWALLOW AND SWALLOW tablet Sports 1 TABLET BY 1 TABLET BY CHEW AND Medicin MOUTH EVERY MOUTH EVERY SWALLOW 1 e MORNING MORNING TABLET BY MOUTH EVERY MORNING atorvastati atorvastati No atorvastat Debby n 40 mg n 40 mg in 40 mg Ortho pe tablet TAKE tablet TAKE tablet dic 1 TABLET BY 1 TABLET BY TAKE 1 Sports MOUTH AT MOUTH AT TABLET BY Me dicin BEDTIME BEDTIME MOUTH AT e BEDTIME Brilinta 90 Brilinta 90 No Brilinta Debby mg tablet mg tablet 90 mg Orth ope TAKE 1 TAKE 1 tablet dic TABLET BY TABLET BY TAKE 1 Spo rts MOUTH EVERY MOUTH EVERY TABLET BY Medicin MORNING AND MORNING AND MOUTH e 1 TABLET 1 TABLET EVERY EVERY EVERY MORNING EVENING. EVENING. AND 1 TABLET EVERY EVENING. Eliquis 5 Eliquis 5 No Eliquis 5 Debby mg tablet mg tablet mg tablet [facility] dic Sports Medicin e Entresto 24 Entresto 24 No Entresto Debby mg-26 mg mg-26 mg 24 mg-26 Ort hope tablet TAKE tablet TAKE mg tablet dic 1 TABLET BY 1 TABLET BY TAKE 1 Sports MOUTH IN MOUTH IN TABLET BY Me dicin THE MORNING THE MORNING MOUTH IN e AND IN THE AND IN THE THE EVENING EVENING MORNING AND IN THE EVENING furosemide furosemide No furosemide Debby 20 mg 20 mg 20 mg Orthope tablet tablet tablet dic Sports Medicin e furosemide furosemide No furosemide Debby 40 mg 40 mg 40 mg [facility] tablet TAKE tablet TAKE tablet dic 1 TABLET BY 1 TABLET BY TAKE 1 Sports MOUTH IN MOUTH IN TABLET BY Dc dicin THE MORNING THE MORNING MOUTH IN e THE MORNING isosorbide isosorbide No isosorbide Debby mononitrate mononitrate mononitrat [facility] ER 60 mg ER 60 mg e ER 60 mg d ic tablet,exte tablet,exte tablet,ext Sports nded nded ended Medicin release 24 release 24 release 24 e hr TAKE 1 hr TAKE 1 hr TAKE 1 TABLET BY TABLET BY TABLET BY MOUTH EVERY MOUTH EVERY MOUTH MORNING MORNING EVERY MORNING losartan 25 losartan 25 No losartan Debby mg tablet mg tablet 25 mg Orth ope TAKE 1 TAKE 1 tablet dic TABLET BY TABLET BY TAKE 1 Spo rts MOUTH DAILY MOUTH DAILY TABLET BY Medicin MOUTH e DAILY metoprolol metoprolol No metoprolol Debby succinate succinate succinate [facility] ER 100 mg ER 100 mg ER 100 mg dic tablet,exte tablet,exte tablet,ext Sports nded nded ended Medicin release 24 release 24 release 24 e hr TAKE 1 hr TAKE 1 hr TAKE 1 TABLET BY TABLET BY TABLET BY MOUTH EVERY MOUTH EVERY MOUTH DAY DAY EVERY DAY metoprolol metoprolol No metoprolol Debby succinate succinate succinate [facility] ER 50 mg ER 50 mg ER 50 mg dic tablet,exte tablet,exte tablet,ext Sports nded nded ended Medicin release 24 release 24 release 24 e hr TAKE 1 hr TAKE 1 hr TAKE 1 TABLET BY TABLET BY TABLET BY MOUTH IN MOUTH IN MOUTH IN THE MORNING THE MORNING THE MORNING metoprolol metoprolol No metoprolol Debby tartrate tartrate tartrate Ort hope 100 mg 100 mg 100 mg dic tablet tablet tablet Sports Medicin e nitroglycer nitroglycer No nitroglyce Debby in 0.4 mg in 0.4 mg rin 0.4 mg [facility] sublingual sublingual sublingual dic tablet tablet tablet Sports PLACE [address] 1 Medici n TABLET TABLET TABLET e UNDER THE UNDER THE UNDER THE TONGUE TONGUE TONGUE EVERY 5 EVERY 5 EVERY 5 MINUTES MINUTES MINUTES NEEDED FOR NEEDED FOR NEEDED FOR CHEST PAIN CHEST PAIN CHEST PAIN telmisartan telmisartan No telmisarta Debby 80 mg 80 mg n 80 mg [facility] tablet TAKE tablet TAKE tablet dic 1 TABLET BY 1 TABLET BY TAKE 1 Sports MOUTH DAILY MOUTH DAILY TABLET BY Medicin MOUTH e DAILY terazosin 5 terazosin 5 No terazosin Debby mg capsule mg capsule 5 mg Ort hope TAKE 1 TAKE 1 capsule dic CAPSULE BY CAPSULE BY TAKE 1 S ports MOUTH DAILY MOUTH DAILY CAPSULE BY Medicin MOUTH e DAILY triamterene triamterene No triamteren Debby 75 75 e 75 Orthope mg-hydrochl mg-hydrochl mg-hydroch dic orothiazide orothiazide lorothiazi Sports 50 mg 50 mg de 50 mg Medicin tablet tablet tablet e Immunizations Ordered Immunization Filled Immunization Date Status Commen ts Source Name Name [id number] 2021 Completed Trevor rial [id number] 00:00:00 [facility] [id number] 2021 Completed Trevor rial [id number] 00:00:00 [facility]o ICVG-XpR-7YZOPT-19 2021 Completed [facility] rial NA-1273vaxMODERNA 00:00:00 [facility] NTVV-OrD-7QJOQK-19 2021 Completed [facility] NA-1273vaxMODERNA 00:00:00 [facility] IDMQ-ZxO-3GZUAN-19 2021 Completed [facility] NA-1273vaxMODERNA 00:00:00 [facility] CPNI-LqE-5NILQZ-19 2021 Completed [facility] NA-1273vaxMODERNA 00:00:00 [facility] ZEET-HxU-7FMUTD-19 2021 Completed [facility] NA-1273vaxMODERNA 00:00:00 [facility] OGHQ-FhN-7HTUZK-19 2021 Completed [facility] NA-1273vaxMODERNA 00:00:00 [facility] FMLN-CwR-3BGERD-19 2021 Completed [facility] NA-1273vaxMODERNA 00:00:00 [facility] PNYW-JiV-5XKWEZ-19 2021-01-03 Completed [facility] NA-1273vaxMODERNA 00:00:00 [facility] BKZK-JrT-6DPFGQ-19mR 2021-01-03 Completed [facility] NA-1273vaxMODERNA 00:00:00 [facility] NAFN-PmT-1CBPCC-19mR 2021-01-03 Completed [facility] NA-1273vaxMODERNA 00:00:00 [facility] UEBO-ZfF-7RYHOR-19mR 2021-01-03 Completed [facility] NA-1273vaxMODERNA 00:00:00 [facility] MOKV-ZzQ-5GDGJT-19mR 2021-01-03 Completed [facility] NA-1273vaxMODERNA 00:00:00 [place] NTBT-HgO-3TYSHT-19mR 2021-01-03 Completed [facility] NA-1273vaxMODERNA 00:00:00 [place] LOII-LxZ-7DLSEH-19mR 2021-01-03 Completed [facility] NA-1273vaxMODERNA 00:00:00 [facility] KTMP-AoT-1QDJXT-19mR 2021-01-03 Completed [facility] NA-1273vaxMODERNA 00:00:00 [facility] UBUN-OfK-5SYPJP-19mR 2021-01-03 Completed [facility] NA-1273vaxMODERNA 00:00:00 [place] JZQW-EuJ-1FFTZQ-19mR 2021-01-03 Completed [facility] NA-1273vaxMODERNA 00:00:00 [facility] LCAU-RoD-3DYONI-19mR 2020-12-06 Completed [facility] NA-1273vaxMODERNA 00:00:00 [facility] YSON-DwT-1KZKKC-19mR 2020-12-06 Completed [facility] NA-1273vaxMODERNA 00:00:00 [facility] WSLM-DoF-3HNRVK-19mR 2020-12-06 Completed [facility] NA-1273vaxMODERNA 00:00:00 [place] IKGD-GvC-6QZXYA-19mR 2020-12-06 Completed [facility] NA-1273vaxMODERNA 00:00:00 [facility] BNPS-XkP-6MEWBX-19mR 2020-12-06 Completed [facility] NA-1273vaxMODERNA 00:00:00 [facility] RAEH-VmO-6NFIPS-19mR 2020-12-06 Completed [facility] NA-1273vaxMODERNA 00:00:00 [place] BGVH-ChL-7KDFHD-19mR 2020-12-06 Completed [facility] NA-1273vaxMODERNA 00:00:00 [facility] XKWU-EgP-5RPEZD-19mR 2020-12-06 Completed [facility] NA-1273vaxMODERNA 00:00:00 [place] KEUD-ChZ-6XMVEB-19mR 2020-12-06 Completed [facility] NA-1273vaxMODERNA 00:00:00 [facility] BFGZ-XxS-1FISOE-19mR 2020-12-06 Completed [facility] NA-1273vaxMODERNA 00:00:00 [facility] influenza virus 2020-07-03 [facility], 17:01:00 [facility] inactivated<sup>1</s up> influenza virus 2020-07-03 [facility]pleted [facility], 17:01:00 [place] inactivated<sup>1</s up> influenza virus 2020-07-03 Completed [facility], 17:01:00 [place] inactivated<sup>1</s up> influenza virus 2020-07-03 Completed [facility], 17:01:00 [place] inactivated<sup>1</s up> influenza virus 2020-07-03 Completed [facility], 17:01:00 [place] inactivated<sup>1</s up> influenza virus 2020-07-03 Completed [facility], 17:01:00 [facility] inactivated<sup>1</s up> influenza virus 2020-07-03 Completed [facility], 17:01:00 [facility] inactivated<sup>1</s up> influenza virus 2020-07-03 Completed [facility], 17:01:00 [facility] inactivated<sup>1</s up> influenza virus 2020-07-03 Completed [facility], 17:01:00 [place] inactivated<sup>1</s up> influenza virus 2020-07-03 Completed [facility], 17:01:00 [facility] inactivated<sup>1</s up> influenza virus 2018-08-01 Completed [facility], inactivated 00:00:00 [facility] influenza virus 2018-08-01 Completed [facility], inactivated 00:00:00 [facility] influenza virus 2018-08-01 [facility]pleted [facility], inactivated 00:00:00 [facility] influenza virus 2018-08-01 Completed [facility], inactivated 00:00:00 [facility] influenza virus 2018-08-01 Completed [facility], inactivated 00:00:00 [facility] influenza virus 2018-08-01 Completed [facility] vaccine, inactivated 00:00:00 [facility] influenza virus 2018-08-01 Completed [facility] vaccine, inactivated 00:00:00 [facility] influenza virus 2018-08-01 Completed [facility] vaccine, inactivated 00:00:00 [facility] influenza virus 2018-08-01 Completed [facility] vaccine, inactivated 00:00:00 [facility] influenza virus 2018-08-01 Completed [facility], inactivated 00:00:00 [facility] influenza virus 2015-08-01 Completed [facility], inactivated 00:00:00 [facility] pneumococcal 2015-08-01 Completed [facility] 13-valent vaccine 00:00:00 [place] influenza virus 2015-08-01 Completed [facility], inactivated 00:00:00 [facility] pneumococcal 2015-08-01 Completed [facility] 13-valent vaccine 00:00:00 [facility] influenza virus 2015-08-01 Completed [facility] vaccine, inactivated 00:00:00 [facility] pneumococcal 2015-08-01 Completed [facility] 13-valent vaccine 00:00:00 [facility] influenza virus 2015-08-01 Completed [facility], inactivated 00:00:00 [facility] pneumococcal 2015-08-01 Completed [facility] 13-valent vaccine 00:00:00 [facility] influenza virus 2015-08-01 Completed [facility], inactivated 00:00:00 [facility] pneumococcal 2015-08-01 Completed [facility] 13-valent vaccine 00:00:00 [place] influenza virus 2015-08-01 Completed [facility], inactivated 00:00:00 [facility] pneumococcal 2015-08-01 Completed [facility] 13-valent vaccine 00:00:00 [place] influenza virus 2015-08-01 Completed [facility], inactivated 00:00:00 [facility] pneumococcal 2015-08-01 Completed [facility] 13-valent vaccine 00:00:00 [facility] influenza virus 2015-08-01 Completed [facility], inactivated 00:00:00 [facility] pneumococcal 2015-08-01 Completed [facility] 13-valent vaccine 00:00:00 [facility] influenza virus 2015-08-01 Completed [facility], inactivated 00:00:00 [facility] pneumococcal 2015-08-01 Completed [facility] 13-valent vaccine 00:00:00 [place] influenza virus 2015-08-01 Completed [facility], inactivated 00:00:00 [facility] pneumococcal 2015-08-01 Completed [facility] 13-valent vaccine 00:00:00 [facility] pneumococcal 2013-08-15 Completed [facility] 23-valent 05:00:00 [facility] vaccine<sup>1</sup> pneumococcal 2013-08-15 Completed [facility] 23-valent 05:00:00 [place] vaccine<sup>2</sup> Hx influenza 2013-08-15 Completed [facility] vaccine-unspecified< 05:00:00 [facility] sup>3</sup> Hx influenza 2013-08-15 Completed [facility] vaccine-unspecified< 05:00:00 [facility] sup>2</sup> pneumococcal 2013-08-15 Completed [facility] 23-valent 05:00:00 [facility] vaccine<sup>3</sup> pneumococcal 2013-08-15 Completed [facility] 23-valent 05:00:00 [facility] vaccine<sup>1</sup> Hx influenza 2013-08-15 Completed [facility] vaccine-unspecified< 05:00:00 [facility] sup>2</sup> pneumococcal 2013-08-15 Completed [facility] 23-valent 05:00:00 [place] vaccine<sup>3</sup> pneumococcal 2013-08-15 Completed [facility] 23-valent 05:00:00 [place] vaccine<sup>2</sup> Hx influenza 2013-08-15 Completed [facility] vaccine-unspecified< 05:00:00 [facility] sup>3</sup> pneumococcal 2013-08-15 Completed [facility] 23-valent 05:00:00 [facility] vaccine<sup>1</sup> Hx influenza 2013-08-15 Completed [facility] vaccine-unspecified< 05:00:00 [facility] sup>2</sup> pneumococcal 2013-08-15 Completed [facility] 23-valent 05:00:00 [facility] vaccine<sup>3</sup> pneumococcal 2013-08-15 Completed [facility] 23-valent 05:00:00 [facility] vaccine<sup>2</sup> Hx influenza 2013-08-15 Completed [facility] vaccine-unspecified< 05:00:00 [facility] sup>3</sup> pneumococcal 2013-08-15 Completed [facility] 23-valent 05:00:00 [place] vaccine<sup>1</sup> Hx influenza 2013-08-15 Completed [facility] vaccine-unspecified< 05:00:00 [facility] sup>2</sup> pneumococcal 2013-08-15 Completed [facility] 23-valent 05:00:00 [facility] vaccine<sup>3</sup> pneumococcal 2013-08-15 Completed [facility] 23-valent 05:00:00 [place] vaccine<sup>2</sup> Hx influenza 2013-08-15 Completed [facility] vaccine-unspecified< 05:00:00 [facility] sup>3</sup> pneumococcal 2013-08-15 Completed [facility] 23-valent 05:00:00 [facility] vaccine<sup>1</sup> Hx influenza 2013-08-15 Completed [facility] vaccine-unspecified< 05:00:00 [facility] sup>2</sup> pneumococcal 2013-08-15 Completed [facility] 23-valent 05:00:00 [facility] vaccine<sup>3</sup> pneumococcal 2013-08-15 Completed [facility] 23-valent 05:00:00 [facility] vaccine<sup>2</sup> Hx influenza 2013-08-15 Completed [facility] vaccine-unspecified< 05:00:00 [facility] sup>3</sup> pneumococcal 2013-08-15 Completed [facility] 23-valent 05:00:00 [facility] vaccine<sup>1</sup> pneumococcal 2013-08-15 Completed [facility] 23-valent 05:00:00 [facility] vaccine<sup>2</sup> Hx influenza 2013-08-15 Completed [facility] vaccine-unspecified< 05:00:00 [facility] sup>3</sup> Hx influenza 2013-08-15 Completed [facility] vaccine-unspecified< 05:00:00 [facility] sup>2</sup> pneumococcal 2013-08-15 Completed [facility] 23-valent 05:00:00 [facility] vaccine<sup>3</sup> pneumococcal 2013-08-15 Completed [facility] 23-valent 05:00:00 [facility] vaccine<sup>1</sup> pneumococcal 2013-08-15 Completed [facility] 23-valent 05:00:00 [facility] vaccine<sup>2</sup> Hx influenza 2013-08-15 Completed [facility] vaccine-unspecified< 05:00:00 [facility] sup>3</sup> Hx influenza 2013-08-15 Completed [facility] vaccine-unspecified< 05:00:00 [facility] sup>2</sup> pneumococcal 2013-08-15 Completed [facility] 23-valent 05:00:00 [place] vaccine<sup>3</sup> pneumococcal 2013-08-15 Completed [facility] 23-valent 05:00:00 [facility] vaccine<sup>1</sup> pneumococcal 2013-08-15 Completed [facility] 23-valent 05:00:00 [facility] vaccine<sup>2</sup> Hx influenza 2013-08-15 Completed [facility] vaccine-unspecified< 05:00:00 [facility] sup>3</sup> Hx influenza 2013-08-15 Completed [facility] vaccine-unspecified< 05:00:00 [facility] sup>2</sup> pneumococcal 2013-08-15 Completed [facility] 23-valent 05:00:00 [place] vaccine<sup>3</sup> pneumococcal 2013-08-15 Completed [facility] 23-valent 05:00:00 [place] vaccine<sup>1</sup> pneumococcal 2013-08-15 Completed [facility] 23-valent 05:00:00 [place] vaccine<sup>2</sup> Hx influenza 2013-08-15 Completed [facility] vaccine-unspecified< 05:00:00 [facility] sup>3</sup> Hx influenza 2013-08-15 Completed [facility] vaccine-unspecified< 05:00:00 [facility] sup>2</sup> pneumococcal 2013-08-15 Completed [facility] 23-valent 05:00:00 [place] vaccine<sup>3</sup> pneumococcal 2013-08-15 Completed [facility] 23-valent 05:00:00 [facility] vaccine<sup>1</sup> pneumococcal 2013-08-15 Completed [facility] 23-valent 05:00:00 [place] vaccine<sup>2</sup> Hx influenza 2013-08-15 Completed [facility] vaccine-unspecified< 05:00:00 [facility] sup>3</sup> Hx influenza 2013-08-15 Completed [facility] vaccine-unspecified< 05:00:00 [facility] sup>2</sup> pneumococcal 2013-08-15 Completed [facility] 23-valent 05:00:00 [place] vaccine<sup>3</sup> zoster vaccine 2013-05-15 Completed [facility] live<sup>3</sup> 05:00:00 [facility] zoster vaccine 2013-05-15 Completed [facility] live<sup>4</sup> 05:00:00 [place] zoster vaccine 2013-05-15 Completed [facility] live<sup>3</sup> 05:00:00 [facility] zoster vaccine 2013-05-15 Completed [facility] live<sup>4</sup> 05:00:00 [place] zoster vaccine 2013-05-15 Completed [facility] live<sup>3</sup> 05:00:00 [facility] zoster vaccine 2013-05-15 Completed [facility] live<sup>4</sup> 05:00:00 [place] zoster vaccine 2013-05-15 Completed [facility] live<sup>3</sup> 05:00:00 [place] zoster vaccine 2013-05-15 Completed [facility] live<sup>4</sup> 05:00:00 [place] zoster vaccine 2013-05-15 Completed [facility] live<sup>3</sup> 05:00:00 [facility] zoster vaccine 2013-05-15 Completed [facility] live<sup>4</sup> 05:00:00 [facility] zoster vaccine 2013-05-15 Completed [facility] live<sup>3</sup> 05:00:00 [place] zoster vaccine 2013-05-15 Completed [facility] live<sup>4</sup> 05:00:00 [place] zoster vaccine 2013-05-15 Completed [facility] live<sup>3</sup> 05:00:00 [facility] zoster vaccine 2013-05-15 Completed [facility] live<sup>4</sup> 05:00:00 [place] zoster vaccine 2013-05-15 Completed [facility] live<sup>3</sup> 05:00:00 [place] zoster vaccine 2013-05-15 Completed [facility] live<sup>4</sup> 05:00:00 [place] zoster vaccine 2013-05-15 Completed [facility] live<sup>3</sup> 05:00:00 [facility] zoster vaccine 2013-05-15 Completed [facility] live<sup>4</sup> 05:00:00 [place] zoster vaccine 2013-05-15 Completed [facility] live<sup>3</sup> 05:00:00 [facility] zoster vaccine 2013-05-15 Completed [facility] live<sup>4</sup> 05:00:00 [facility] Vital Signs Vital Name Observation Time Observation Value Comments Source Height 2023-01-08 00:00:00 62 [in_i] [facility] Systolic blood 2022-10-21 19:13:00 160 mm[Hg] [facility] Diastolic blood 2022-10-21 19:13:00 99 mm[Hg] [facility] Heart rate 2022-10-21 19:13:00 66 /min [facility] Respiratory rate 2022-10-21 19:08:00 16 /min [facility] Body height 2022-10-21 19:08:00 157.5 cm [facility] Body weight 2022-10-21 19:08:00 114.76 kg [facility] BMI 2022-10-21 19:08:00 46.27 kg/m2 [facility] Oxygen saturation in 2022-10-21 19:08:00 95 /min [facility] Arterial blood by [facility] Pulse oximetry Branch Systolic blood 2022-10-19 18:00:00 123 mm[Hg] [facility] Diastolic blood 2022-10-19 18:00:00 66 mm[Hg] [facility] Heart rate 2022-10-19 18:00:00 77 /min [facility] Oxygen saturation in 2022-10-19 18:00:00 93 /min [facility] Arterial blood by [facility] Pulse oximetry Branch Body temperature 2022-10-19 17:59:00 37.56 Sade [facility] Respiratory rate 2022-10-19 17:59:00 18 /min [facility] Body weight 2022-10-18 08:00:00 118.752 kg [facility] BMI 2022-10-18 08:00:00 47.88 kg/m2 [facility] Body height 2022-10-13 22:00:00 157.5 cm [facility] Systolic blood 2022-10-14 03:30:00 134 mm[Hg] [facility] Diastolic blood 2022-10-14 03:30:00 83 mm[Hg] [facility] Heart rate 2022-10-14 03:30:00 66 /min [facility] Respiratory rate 2022-10-14 03:30:00 19 /min [facility] in 2022-10-14 03:30:00 98 /min [facility] Arterial blood by [facility] Pulse oximetry Branch Body height 2022-10-13 22:00:00 157.5 cm [facility] Body weight 2022-10-13 22:00:00 117.028 kg [facility] BMI 2022-10-13 22:00:00 47.19 kg/m2 [facility] Body temperature 2022-10-13 21:00:00 36.44 Sade [facility] 2022-12-08 21:09:00 [facility] Systolic (mm Hg) 2022-12-08 21:09:00 Trevor rial [place] Diastolic (mm Hg) 2022-12-08 21:09:00 [facility] Height 2022-12-08 21:09:00 5 [ft_i] [facility] Systolic blood 2022-11-06 22:50:35 126 mm[Hg] [facility] pressure Diastolic blood 2022-11-06 22:50:35 60 mm[Hg] [facility] pressure Heart rate 2022-11-06 22:50:35 83 /min [facility] Body temperature 2022-11-06 22:50:35 36.56 Sade [facility] Respiratory rate 2022-11-06 22:50:35 14 /min [facility] Oxygen saturation in 2022-11-06 22:50:35 100 /min [facility] Arterial blood by Pulse oximetry Body weight 2022-11-06 10:58:00 121.02 kg [facility] BMI 2022-11-06 10:58:00 48.80 kg/m2 [facility] Body height 2022-10-26 22:00:04 157.5 cm [facility] Temperature Oral (F) 2022-06-09 19:36:00 97.7 F [facility] [place] Heart Rate 2022-06-09 19:36:00 [facility] [place] Systolic (mm Hg) 2022-06-09 19:36:00 Trevor rial [facility] Diastolic (mm Hg) 2022-06-09 19:36:00 [facility] [place] Height 2022-06-09 19:36:00 154.94 cm [facility] Weight 2022-06-09 19:36:00 [facility] BMI Calculated 2022-06-09 19:36:00 [facility] [place] Temperature Oral (F) 2021-09-01 13:58:00 97.7 F [facility] [place] Heart Rate 2021-09-01 13:58:00 [facility] Systolic (mm Hg) 2021-09-01 13:58:00 Trevor rial [place] Diastolic (mm Hg) 2021-09-01 13:58:00 [facility] [place] Height 2021-09-01 13:58:00 154.94 cm [facility] [place] Weight 2021-09-01 13:58:00 [facility] BMI Calculated 2021-09-01 13:58:00 [facility] Systolic blood 2021-05-30 12:36:58 129 mm[Hg] [facility] pressure Diastolic blood 2021-05-30 12:36:58 70 mm[Hg] [facility] pressure Heart rate 2021-05-30 12:36:58 88 /min [facility] Body temperature 2021-05-30 12:36:58 36.94 Sade [facility] Respiratory rate 2021-05-30 12:36:58 16 /min [facility] Oxygen saturation in 2021-05-30 12:36:58 90 /min [facility] Arterial blood by Pulse oximetry Body weight 2021-05-26 01:54:00 101.3 kg [facility] BMI 2021-05-26 01:54:00 42.20 kg/m2 [facility] Systolic (mm Hg) 2021-05-19 19:50:00 Trevor rial [place] Diastolic (mm Hg) 2021-05-19 19:50:00 Mem [facility] [place] Heart Rate 2021-05-19 19:50:00 [facility] [place] Temperature Oral (F) 2021-05-19 19:50:00 98.6 F [facility] [place] Height 2021-05-19 19:50:00 154.94 cm [facility] Weight 2021-05-19 19:50:00 [facility] BMI Calculated 2021-05-19 19:50:00 [facility] [place] Height 2021-03-19 14:18:00 154.94 cm [facility] [place] Weight 2021-03-19 14:18:00 [facility] BMI Calculated 2021-03-19 14:18:00 [facility] [place] Systolic (mm Hg) 2021-02-11 19:04:00 Trevor [facility] Diastolic (mm Hg) 2021-02-11 19:04:00 [facility] Heart Rate 2021-02-11 19:04:00 [facility] Height 2021-02-11 19:04:00 154.94 cm [facility] [place] Weight 2021-02-11 19:04:00 [facility] BMI Calculated 2021-02-11 19:04:00 [facility] Systolic (mm Hg) 2020-08-14 15:36:00 [facility] Diastolic (mm Hg) 2020-08-14 15:36:00 [facility] [place] Heart Rate 2020-08-14 15:36:00 [facility] Height 2020-08-14 15:36:00 154.94 cm [facility] Weight 2020-08-14 15:36:00 [facility] [place] BMI Calculated 2020-08-14 15:36:00 [facility] Systolic (mm Hg) 2020-07-03 16:18:00 Trevor rial [place] Diastolic (mm Hg) 2020-07-03 16:18:00 [facility] Heart Rate 2020-07-03 16:18:00 [facility] [place] Temperature Oral (F) 2020-07-03 16:18:00 97.7 F [facility] Height 2020-07-03 16:18:00 154.94 cm [facility] Weight 2020-07-03 16:18:00 [facility] BMI Calculated 2020-07-03 16:18:00 [facility] [place] Systolic (mm Hg) 2019-04-18 19:41:00 Tervor rial [facility] Diastolic (mm Hg) 2019-04-18 19:41:00 [facility] Heart Rate 2019-04-18 19:41:00 [facility] [place] Temperature Oral (F) 2019-04-18 19:41:00 97.6 F [facility] BMI Calculated 2019-04-18 19:41:00 [facility] Weight 2019-04-18 19:41:00 [facility] Height 2019-04-18 19:41:00 154.94 cm [facility] Heart Rate 2018-11-15 19:31:00 [facility] [place] Temperature Oral (F) 2018-11-15 19:31:00 97.9 F [facility] Systolic (mm Hg) 2018-11-15 19:31:00 Trveor rial [facility] Diastolic (mm Hg) 2018-11-15 19:31:00 [facility] [place] Height 2018-11-15 19:31:00 154.94 cm [facility] Weight 2018-11-15 19:31:00 [facility] [place] BMI Calculated 2018-11-15 19:31:00 [facility] Height 2018-06-21 18:24:00 154.94 cm [facility] Weight 2018-06-21 18:24:00 [facility] BMI Calculated 2018-06-21 18:24:00 [facility] Heart Rate 2018-06-21 18:24:00 [facility] Temperature Oral (F) 2018-06-21 18:24:00 97.8 F [facility] [place] Systolic (mm Hg) 2018-06-21 18:24:00 Trevor rial [place] Diastolic (mm Hg) 2018-06-21 18:24:00 [facility] Weight 2018-02-15 18:50:00 [facility] BMI Calculated 2018-02-15 18:50:00 [facility] [place] Systolic (mm Hg) 2018-02-15 18:50:00 Trevor rial [facility] Diastolic (mm Hg) 2018-02-15 18:50:00 Mem [facility] [place] Temperature Oral (F) 2018-02-15 18:50:00 97.5 F [facility] Heart Rate 2018-02-15 18:50:00 [facility] Height 2018-02-15 18:50:00 154.94 cm [facility] [place] Procedures Procedure Date / Time Performing Source Performed Clinician INSURANCE CORRESPONDENCE 2022-11-08 Doctor Unassigned, [facility] 06:01:00 [facility] COMPREHENSIVE METABOLIC PANEL 2022-11-06 zaheer [facility] 10:33:00 CBC WITH PLATELET AND 2022-11-06 [facility] DIFFERENTIAL 10:33:00 MAGNESIUM LEVEL 2022-11-06 Ahmad, [facility] al 10:33:00 PHOSPHORUS LEVEL 2022-11-06 mad, [facility] Hos[facility] david 10:33:00 ESTIMATED GFR [facility] 10:33:00 VENIPUNC NEED PHYS SKILL,DX 2022-11-05 Rudy [facility] OR RX 23:06:23 Nadia CBC WITH PLATELET AND 2022-11-05 [facility] DIFFERENTIAL 11:13:00 COMPREHENSIVE METABOLIC PANEL 2022-11-05 [facility], [facility] 09:24:00 MAGNESIUM LEVEL 2022-11-05 [facility] 09:24:00 PHOSPHORUS LEVEL 2022-11-05 [facility], [facility] david 09:24:00 ESTIMATED GFR 2022-11-05 [facility], [facility] 09:24:00 XR CHEST 2 VW 2022-11-04 [facility] 00:36[facility]24 PARTIAL THROMBOPLASTIN TIME 2022-11-03 [facility] (PTT) 18:53:00 CBC WITH PLATELET AND 2022-11-03 [facility] DIFFERENTIAL 09:27:00 BASIC METABOLIC PANEL 2022-11-03 [facility] 09:27:00 MAGNESIUM LEVEL 2022-11-03 [facility] 09:27:00 Garcia PARTIAL THROMBOPLASTIN TIME 2022-11-03 [facility] (PTT) 09:27:00 ESTIMATED GFR [facility]-03 [facility] 09:27:00 RESPIRATORY PATHOGEN PANEL 2022-11-03 [facility] WITH COVID-19 RT-PCR 03:34:00 PROTHROMBIN TIME WITH INR 2022-11-03 [facility] 02:06:00 PARTIAL THROMBOPLASTIN TIME 2022-11-03 [facility] (PTT) 02:06:00 CBC HEMOGRAM 2022-11-03 [facility] 02:06:00 ANTI XA, UNFRACTIONATED [facility] 02:06:00 NM LUNG PERFUSION IMAGING 2022-11-03 [facility] 01:59:28 XR CHEST 1 VW PORTABLE 2022-11-03 [facility] 00:42:31 US DUPLEX VENOUS LOWER 2022-11-02 [facility] EXTREMITY BILATERAL 23:23:37 ARTERIAL BLOOD GAS 2022-11-02 [facility] 22:17:00 [facility] 21:20[facility]00 TROPONIN T 2022[facility]11-02 [facility] 21:20:00 CBC WITH PLATELET AND 2022-11-02 [facility] DIFFERENTIAL 10:14:00 BASIC METABOLIC PANEL 2022-11-02 [facility] 10:14:00 ESTIMATED GFR 2022-11-02 [facility] 10:14:00 CBC WITH PLATELET AND 2022-11-01 [facility] DIFFERENTIAL 10:56:00 BASIC METABOLIC PANEL 2022-11-01 [facility] 10:56:00 ESTIMATED GFR 2022-11-01 [facility] 10:56:00 BASIC METABOLIC PANEL 2022-10-31 [facility] 11:17:00 Garcia B NATRIURETIC PEPTIDE 2022-10-31 [facility] [facility] 11:17:00 Garcia MAGNESIUM LEVEL 2022-10-31 [facility] 11:17:00 Garcia ESTIMATED GFR 2022-10-31 [facility] 11:17:00 Garcia CBC WITH PLATELET AND 2022-10-30 [facility] DIFFERENTIAL 17:25:00 COMPREHENSIVE METABOLIC PANEL 2022-10-30 [facility] 17:25:00 ESTIMATED GFR 2022-10-30 [facility] 17:25:00 MRI LUMBAR SPINE WO CONTRAST 2022-10-30 [facility] 15:55:07 CBC WITH PLATELET AND 2022-10-29 [facility] DIFFERENTIAL 11:42:00 BASIC METABOLIC PANEL 2022-10-29 [facility] 11:42:00 LIPID PANEL 2022-10-29 [facility] 11:42:00 ESTIMATED GFR 2022-10-29 [facility] 11:42:00 AUTHORIZATION FOR RELEASE OF 2022-10-29 Doctor Unassigned, [facility] 06:01:00 [facility] TTE COMPLETE, WO CONTRAST, W 2022-10-28 [facility] DOPPLER ([id number]) 19:24:00 BLOOD CULTURE, AEROBIC & 2022-10-28 [facility] 17:35:00 Radhatianna Banda US RENAL 2022-10-28 [facility] 16:40:51 CBC WITH PLATELET AND 2022-10-28 [facility] DIFFERENTIAL 10:13:00 COMPREHENSIVE METABOLIC PANEL 2022-10-28 [facility] 10:13:00 ESTIMATED GFR 2022-10-28 [facility] 10:13:00 FL RAD NEEDLE ASPIRATION 2022-10-27 Veronica Craig [facility] 18:16:38 Mauro AEROBIC CULTURE 2022-10-27 [facility] 17:45:00 Mauro ANAEROBIC CULTURE 2022-10-27 Veronica Craig [facility] 17:45:00 Mauro GRAM STAIN 2022-10-27 Veronica [facility] david 17:45:00 Mauro CELL COUNT AND DIFFERENTIAL, 2022-10-27 Veronica Craig [facility] BODY FLUID 17:45:00 Mauro CBC WITH PLATELET AND 2022-10-27 Ahmad, [facility] DIFFERENTIAL 10:45:00 PROTHROMBIN TIME WITH INR 2022-10-27 mad, [facility] 10:45:00 MAGNESIUM LEVEL 2022-10-27 Ahmad, [facility] Hospit al 10:45:00 PHOSPHORUS LEVEL 2022-10-27 Ahmad, [facility] david 10:45:00 THYROID STIMULATING HORMONE 2022-10-27 [facility] 10:45:00 COMPREHENSIVE METABOLIC PANEL 2022-10-27 mad, [facility] 10:45:00 LACTIC ACID LEVEL 2022-10-27 Ahmad, [facility] ital 10:45:00 RETICULOCYTE COUNT 2022-10-27 mad, [facility] 10:45:00 PROCALCITONIN 2022-10-27 Ahmad, [facility] al 10:45:00 HEMOGLOBIN A1C 2022-10-27 mad, [facility] al 10:45:00 ESTIMATED GFR 2022-10-27 mad, [facility] al 10:45:00 LACTIC ACID LEVEL 2022-10-27 [facility]bella Tre[facility] 04:00:00 LACTIC ACID LEVEL, SEPSIS - 2022-10-26 [facility] NOW AND REPEAT 2X EVERY 3 23:55:00 HOURS TROPONIN T 2022-10-26 mad, [facility] 23:55:00 US GALLBLADDER 2022-10-26 Veronica Craig [facility] 21:53:04 Mauro LACTIC ACID LEVEL, SEPSIS - 2022-10-26 [facility] NOW AND REPEAT 2X EVERY 3 21:00:00 HOURS TROPONIN T 2022-10-26 mad, [facility] 21:00:00 URINE CULTURE 2022-10-26 Veronica [facility] 19:51:00 Mauro XR HIP 2-3 VIEWS RIGHT 2022-10-26 [facility] 19:08:27 Mauro XR CHEST 1 VW 2022-10-26 Veronica Craig [facility] 19:08:15 Mauro URINALYSIS SCREEN AND 2022-10-26 [facility] MICROSCOPY, WITH REFLEX TO 18:46:00 Mauro CULTURE COVID-19, INFLUENZA A&B, AND 2022-10-26 [facility] RSV QUALITATIVE RT-PCR 18:45:[address] ABDOMEN PELVIS WO CONTRAST 2022-10-26 [facility] 18:35:05 Mauro CBC WITH PLATELET AND 2022-10-26 [facility] DIFFERENTIAL 18:27:00 Mauro COMPREHENSIVE METABOLIC PANEL 2022-10-26 [facility] 18:27:00 Mauro LACTIC ACID LEVEL, SEPSIS - 2022-10-26 [facility] NOW AND REPEAT 2X EVERY 3 18:27:00 HOURS AMYLASE LEVEL 2022-10-26 [facility] david 18:27:00 Mauro LIPASE LEVEL 2022-10-26 [facility] dav[facility] 18:27:00 Mauro MAGNESIUM LEVEL 2022-10-26 [facility] david 18:27:00 Mauro PHOSPHORUS LEVEL 2022-10-26 [facility]osp ital 18:27:00 Mauro TROPONIN T 2022-10-26 [facility] Hospit al 18:27:00 B NATRIURETIC PEPTIDE 2022-10-26 [facility] 18:27:00 Mauro ESTIMATED GFR 2022-10-26 [facility] david 18:27:00 Mauro BLOOD CULTURE, AEROBIC & 2022-10-26 [facility] ANAEROBIC 18:20:00 Mauro ECG ED PRELIMINARY 2022-10-26 [facility] spital INTERPRETATION 17:57:13 Mauro BLOOD CULTURE, AEROBIC & 2022-10-26 [facility] ANAEROBIC 17:30:00 Mauro ECG 12-LEAD 2022-10-26 [facility] 17:17:48 Mauro MRI CHEST EXTERNAL STUDY 2022-10-19 [facility] 19:17:25 MAGNESIUM 2022-10-19 Campbell, [facility] ex 12:18:00 [facility] COMP. METABOLIC PANEL ([id number]) 2022-10-19 Esdras Campbell [facility] 12:18:00 [facility] MAGNESIUM 2022-10-18 [facility] ex[facility] 11:49:00 [facility] COMP. METABOLIC PANEL ([id number]) 2022-10-18 Esdras Campbell [facility] 11:49:00 [facility] MAGNESIUM 2022-10-17 [facility] ex[facility] 10:39:00 [facility] COMP. METABOLIC PANEL ([id number]) 2022-10-17 Esdras Campbell [facility] 10:39:00 [facility] EXTRA TUBE LAV 2022-10-17 [facility] 10:39:00 , [facility] EXTRA TUBE LT. BLUE 2022-10-17 [facility] 10:39:00 , [facility] MAGNESIUM 2022-10-16 Ondina Prashanth [facility] ex 23:35:00 [facility] COMP. METABOLIC PANEL ([id number]) 2022-10-16 Prashanth Nj [facility] 23:35:00 [facility] MAGNESIUM 2022-10-15 [facility]as 12:00:00 [facility] COMP. METABOLIC PANEL ([id number]) 2022-10-15 [facility] 12:00:[facility] CBC WITHOUT DIFF 2022-10-15 [facility] 12:00:00 [facility] ACTIVATED PARTIAL THRMPLAS 2022-10-15 u-Dora Deaa [facility] AMADOU 08:50:00 [facility] Leoncio ACTIVATED PARTIAL THRMPLAS 2022-10-15 u-Dora [facility] AMADOU 01:52:00 [facility] Fang ACTIVATED PARTIAL THRMPLAS 2022-10-14 u-Dora [facility] AMADOU 20:07:00 [facility] Fang ACTIVATED PARTIAL THRMPLAS 2022-10-14 Sienna [facility] AMADOU 20:07:00 [facility] Fang ACTIVATED PARTIAL THRMPLAS 2022-10-14 Olya-Dora, [facility] AMADOU 12:41:00 [facility] ACTIVATED PARTIAL THRMPLAS 2022-10-14 Olya-Dora, [facility] [place] AMADOU 12:41:00 [facility] MAGNESIUM 2022-10-14 Mónica [facility] xas 09:37:00 [facility] BASIC METABOLIC PANEL (NA, K, 2022-10-14 Mónica, [facility] CL, CO2, GLUCOSE, BUN, 09:37:00 [facility] CREATININE, CA) Leoncio LIPID PANEL ([id number])(TOTAL 2022-10-14 Mónica [facility] CHOLESTEROL, TRIGLYCERIDES, 09:37:00 [facility] HDL) Leoncio MAGNESIUM 2022-10-14 Olya-Dora [facility] 09:37:00 [facility] BASIC METABOLIC PANEL (NA, K, 2022-10-14 Mónica, [facility] CL, CO2, GLUCOSE, BUN, 09:37:00 [facility] CREATININE, CA) Fang LIPID PANEL ([id number])(TOTAL 2022-10-14 Olya-Dora, [facility] CHOLESTEROL, TRIGLYCERIDES, 09:37:00 [facility] HDL) [facility] ACTIVATED PARTIAL THRMPLAS 2022-10-14 Alexandra Menendez [facility] [place] AMADOU 03:58:00 [facility] ACTIVATED PARTIAL THRMPLAS 2022-10-14 Shon [facility] [place] AMADOU 03:58:00 [facility] TRANSTHORACIC ECHO (TTE) 2022-10-13 [facility] COMPLETE W/ CONTRAST 21:46:00 [facility] Leoncio TRANSTHORACIC ECHO (TTE) 2022-10-13 Yifan Sales [facility] COMPLETE W/ CONTRAST 21:46:00 [facility] Leoncio CBC WITH DIFF 2022-10-13 [facility] xas 20:59:00 [facility] Leoncio GLYCOSYLATED HEMOGLOBIN (A1C) 2022-10-13 Yifan Sales [facility] 20:59:00 [facility] / MSSA SCREEN BY PCR, 2022-10-13 Mónica [facility] NARES 20:59:00 [facility] Leoncio CBC WITH DIFF 2022-10-13 Sienna [facility] xas 20:59:00 [facility] Leoncio GLYCOSYLATED HEMOGLOBIN (A1C) 2022-10-13 Yifan Sales [facility] 20:59:00 [facility] MRSA / MSSA SCREEN BY PCR, 2022-10-13 Mónica [facility] NARES 20:59:00 [facility] TROPONIN I 2022-10-13 Mónica [facility] 20:56:00 [facility] COMP. METABOLIC PANEL ([id number]) 2022-10-13 Yifan Sales [facility] 20:56:00 [facility] PROTHROMBIN TIME / INR 2022-10-13 [facility] 20:56:00 [facility] ACTIVATED PARTIAL THRMPLAS 2022-10-13 Mónica [facility] AMADOU 20:56:00 [facility] TROPONIN I 2022-10-13 Mónica [facility] 20:56:00 [facility] COMP. METABOLIC PANEL ([id number]) 2022-10-13 [facility] 20:56:00 [facility] Leoncio PROTHROMBIN TIME / INR 2022-10-13 Mónica [facility] 20:56:00 [facility] Leoncio ACTIVATED PARTIAL THRMPLAS 2022-10-13 Mónica [facility] AMADOU 20:56:00 [facility] COVID-19 (ID NOW RAPID 2022-10-13 Singer [facility] TESTING) 19:21:00 [facility] COVID-19 (ID NOW RAPID 2022-10-13 Singer [facility] TESTING) 19:21:00 [facility] LAB ONLY COVID INTERPRETATION 2022-10-13 Vitaliy Huitron [facility] 19:21:00 Medical [facility] XR CHEST 1 VW 2022-10-13 Singer [facility] xas 19:10:11 Medical [facility] XR CHEST 1 VW 2022-10-13 [facility] xas 19:10:11 Medical [facility] HB ECG ROUTINE & RHYTHM STRIP 2022-10-13 Vitaliy Huitron [facility] [place] 19:04:38 [facility] HB ECG ROUTINE & RHYTHM STRIP 2022-10-13 Vitaliy Huitron [facility] 19:04:38 [facility] PROTHROMBIN TIME / INR 2022-10-13 Singer Vitaliy [facility] 18:59:00 [facility] ACTIVATED PARTIAL THRMPLAS 2022-10-13 Vitaliy Huitron [facility] AMADOU 18:59:00 [facility] PROTHROMBIN TIME / INR 2022-10-13 Singer [facility] 18:59:00 [facility] ACTIVATED PARTIAL THRMPLAS 2022-10-13 Singer [facility] AMADOU 18:59:00 [facility] LIPASE 2022-10-13 Singer [facility] xas 18:48:00 [facility] MAGNESIUM 2022-10-13 Singer [facility] xas 18:48:00 [facility] TROPONIN I 2022-10-13 Singer [facility] xas 18:48:00 [facility] COMP. METABOLIC PANEL ([id number]) 2022-10-13 Vitaliy Huitron [facility] 18:48:00 [facility] CBC WITH DIFF 2022-10-13 Singer [facility] xas 18:48:00 [facility] N-TERMINAL PRO-BNP 2022-10-[address] [facility] 18:48:00 [facility] LIPASE 2022-10-13 Singer [facility] xas 18:48:00 [facility] MAGNESIUM 2022-10-13 Singer [facility] xas 18:48:00 [facility] TROPONIN I 2022-10-13 , [facility] xas 18:48:00 [facility] COMP. METABOLIC PANEL ([id number]) 2022-10-13 Vitaliy Huitron [facility] 18:48:00 [facility] CBC WITH DIFF 2022-10-13 Singer [facility] xas 18:48:00 [facility] N-TERMINAL PRO-BNP 2022-10-[address] [facility] 18:48:00 [facility] HB ECG ROUTINE & RHYTHM STRIP 2022-10-13 Yifan Sales [facility] [place] 18:44:04 [facility] Leoncio HB ECG ROUTINE & RHYTHM STRIP 2022-10-13 Yifan Sales [facility] [place] 18:44:04 [facility] Leoncio NOTICE OF PRIVACY PRACTICES 2022-10-13 Doctor Unassigned, [facility] [place] 18:24:19 [facility] NOTICE OF PRIVACY PRACTICES 2022-10-13 Doctor Unassigned, [facility] [place] 18:24:19 [facility] CARDIAC CATHETERIZATION 2022-10-13 [facility] 13:25:00 , [facility] [place] CARDIAC CATHETERIZATION 2022-10-13 [facility] 13:25:00 , [facility] [place] Total knee replacement 2021-09-16 [facility] 06:00:00 TRANSFUSE RED BLOOD CELLS 2021-05-30 Lupillo Gastelum [facility] 23:04:53 MAGNESIUM LEVEL 2021-05-30 [facility] 09:24:00 BASIC METABOLIC PANEL 2021-05-30 [facility] 09:24:00 HC COMPLETE BLD COUNT W/AUTO 2021-05-30 Lupillo Gastelum [facility] DIFF 09:24:00 ESTIMATED GFR 2021-05-30 Lupillo Gastelum [facility] pital 09:24:00 HC COMPLETE BLD COUNT W/AUTO 2021-05-29 [facility] DIFF 09:01:00 BASIC METABOLIC PANEL 2021-05-29 [facility] 09[facility]01:00 ESTIMATED GFR 2021-05-29 [facility] Ho spital 09:01:00 SMEAR REVIEW 2021-05-29 [facility] Ho spital 09:01:00 XR PICC CHEST PORTABLE 2021-05-28 RomeroLupillo Lima [facility] 23:45:00 PICC INSERTION REQUEST 2021-05-28 Shravan Meadows [facility] 23:23:23 HC COMPLETE BLD COUNT W/AUTO 2021-05-28 [facility] DIFF 08:06:00 COMPREHENSIVE METABOLIC PANEL 2021-05-28 Ad [facility] 08:06:00 F. MAGNESIUM LEVEL 2021-05-28 [facility] ital 08:06:00 F. B NATRIURETIC PEPTIDE 2021-05-28 [facility] 08:06:00 F. PHOSPHORUS LEVEL 2021-05-28 [facility] 08:06:00 F. ESTIMATED GFR 2021-05-28 [facility] 08:06:00 F. XR KNEE 1 OR 2 VW LEFT 2021-05-27 [facility] 22:45:00 POC GLUCOSE 2021-05-27 Lupillo Gastelum [facility] pital 22:29:00 ANAEROBIC CULTURE 2021-05-27 [facility] 20:34:00 FUNGUS CULTURE 2021-05-27 [facility] Sunday [facility] 20:34:00 AEROBIC CULTURE 2021-05-27 [facility] N [facility] sp[facility] 20:34:00 GRAM STAIN 2021-05-27 [facility] Ho spital 20:34:00 ANAEROBIC CULTURE 2021-05-27 [facility] 20:33:00 FUNGUS CULTURE 2021-05-27 [facility] Ho spital 20:33:00 JOINT FLUID CULTURE 2021-05-27 [facility] 20:33:00 GRAM STAIN 2021-05-27 [facility] Ho spital 20:33:00 NV AN ELECTIVE ENDOTRACHEAL 2021-05-27 Fili Redding [facility] AIRWAY 19:07:00 REMOVAL, ORTHOPEDIC HARDWARE, 2021-05-27 [facility] KNEE 18:56:00 SURGICAL PATHOLOGY REQUEST 2021-05-27 Lupillo GastelumFormerly [facility] 13:15:00 ABO AND RH CONFIRMATION 2021-05-[address] [facility] 10:36:00 TYPE AND SCREEN 2021-05-27 [facility] 10:22:00 PREPARE RBC 2021-05-27 [facility] 10:22:00 OSMOLALITY, URINE 2021-05-26 [facility] spital 22:01:00 F. SODIUM LEVEL, URINE, RANDOM 2021-05-26 [facility] 22:01:00 F. PROTEIN, URINE, RANDOM 2021-05-26 [facility] 22:01:00 F. CREATININE LEVEL, URINE, 2021-05-26 [facility] RANDOM 22:01:00 F. CHLORIDE LEVEL, URINE, RANDOM 2021-05-26 [facility] 22:01:00 F. BASIC METABOLIC PANEL 2021-05-26 RomeroLupillo Lima [facility] 10:23:00 ESTIMATED GFR 2021-05-26 RomeroLupillo Lima Hos [facility] 10:23:00 URINE CULTURE 2021-05-26 Lupillo Gastelum [facility] pital 10:15:00 URINALYSIS SCREEN AND 2021-05-26 Lupillo Lima [facility] MICROSCOPY, WITH REFLEX TO 10:14:00 CULTURE URINE EOSINOPHILS 2021-05-26 Lupillo Gastelum H ospital 10:14:00 US RENAL 2021-05-26 Lupillo Gastelum [facility] pital 09:45:00 COVID-19 QUALITATIVE RT-PCR 2021-05-26 RomeroLupillo Lima [facility] 03:28:00 B NATRIURETIC PEPTIDE 2021-05-26 RomeroLupillo Lima [facility] 03:26:00 ESTIMATED GFR 2021-05-26 RomeroLupillo Lima [facility] pital 03:26:00 PROTHROMBIN TIME WITH INR 2021-05-26 RomeroLupillo Lima [facility] 03:26:00 HC COMPLETE BLD COUNT W/AUTO 2021-05-26 [facility] DIFF 03:26:00 CREATINE KINASE, TOTAL (CPK) 2021-05-26 [facility] CenterLimaLupillo dean [facility] 03:26:00 COMPREHENSIVE METABOLIC PANEL 2021-05-26 RomeroLupillo Lima [facility] 03:26:00 ECG 12-LEAD 2021-05-26 Lupillo Gastelum [facility] pital 02:16:05 FOLATE LEVEL 2021-04-09 [facility] 18:15:00 Ennius RETICULOCYTE COUNT 2021-04-09 [facility] 18:15:00 Ennius VITAMIN B12 LEVEL 2021-04-09 [facility] 18:15:00 Ennius IRON LEVEL 2021-04-09 [facility] 18:15:00 Ennius FERRITIN LEVEL 2021-04-09 [facility] 18:15:00 Ennius HAPTOGLOBIN 2021-04-09 [facility], [facility] al 18:15:00 Ennius LDH 2021-04-09 [facility], [facility] al 18:15:00 Ennius SEDIMENTATION RATE 2021-04-09 [facility], [facility] Hos pital 18:15:00 Ennius COMPREHENSIVE METABOLIC PANEL 2021-04-09 [facility], [facility] 18:15:00 Ennius HC COMPLETE BLD COUNT W/AUTO 2021-04-09 [facility], [facility] DIFF 18:15:00 Ennius ESTIMATED GFR 2021-04-09 [facility], [facility] 18:15:00 Ennius [place] ARTHROCENTESIS ASPIR&/INJ 2021-03-05 [facility] JT/BURSA W/O US 18:30:00 CT LOWER EXTREMITY WO 2021-02-27 [facility] LEFT 18:06:32 D-DIMER 2021-02-13 [facility] 21:00:00 CBC HEMOGRAM 2021-02-13 Yoel Jalloh [facility] 21:00:00 SEDIMENTATION RATE 2021-02-13 [facility] 21:00:00 C-REACTIVE PROTEIN 2021-02-13 Yoel Jalloh [facility] pital 21:00:00 XR KNEE 1 OR 2 VW LEFT 2021-02-13 Yoel Jalloh [facility] 19:35:28 XR KNEE AP STANDING BILATERAL 2021-02-13 Yoel Jalloh [facility] 19:34:54 Procedure<sup>1</sup> 2019-12-17 [facility] 06:00:00 Procedure<sup>2</sup> 2019-07-18 [facility] 05:00:00 Mammogram 2016-12-02 [facility] 06:00:00 Bone density scan 2010-06-01 [facility] 05:00:00 Proctosigmoidectomy 2009-01-08 [facility] 05:00:00 Colonoscopy 2009-01-01 [facility] 06:00:00 [facility] Breast [facility]<sup>3</sup> [facility]<sup>4</sup> [facility] christian Alvaardo Colonoscopic polypectomy Dennisvenice Quintanillaann Plan of Care Planned Activity Planned Date Details Comments Source Future Scheduled 2023-01-12 65+ [facility]CCAL [facility] 11:22:43 VACCINE (1 - PCV) [code = 65+ PNEUMOCOCCAL VACCINE (1 - PCV)] Future Scheduled 2023-01-12 Hepatitis C screening [facility] Test 11:22:43 (procedure) [code = 339555965] Future Scheduled 2023-01-12 SHINGLES VACCINES (1 Met [facility] Test 11:22:43 of 2) [code = SHINGLES VACCINES (1 of 2)] Future Scheduled 2023-01-12 BREAST CANCER [facility] Test 11:22:43 SCREENING [code = BREAST CANCER SCREENING] Future Scheduled 2023-01-12 COLONOSCOPY SCREENING [facility] Test 11:22:43 [code = COLONOSCOPY SCREENING] Future Scheduled 2023-01-12 COVID-19 VACCINE (4 - [facility] Test 11:22:43 Booster for Moderna series) [code = COVID-19 VACCINE (4 - Booster for Moderna series)] Future Scheduled 2023-01-12 INFLUENZA VACCINE [facility] Test 11:22:43 [code = INFLUENZA VACCINE] Future Scheduled 2023-01-06 65+ [facility]OCCAL [facility] 09:32:32 VACCINE (1 - PCV) [code = 65+ PNEUMOCOCCAL VACCINE (1 - PCV)] Future Scheduled 2023-01-06 Hepatitis C screening [facility] Test 09:32:32 (procedure) [code = 553164274] Future Scheduled 2023-01-06 SHINGLES VACCINES (1 [facility] Test 09:32:32 of 2) [code = SHINGLES VACCINES (1 of 2)] Future Scheduled 2023-01-06 BREAST CANCER [facility] Test 09:32:32 SCREENING [code = BREAST CANCER SCREENING] Future Scheduled 2023-01-06 COLONOSCOPY SCREENING [facility] Test 09:32:32 [code = COLONOSCOPY SCREENING] Future Scheduled 2023-01-06 COVID-19 VACCINE (4 - [facility] Test 09:32:32 Booster for Moderna series) [code = COVID-19 VACCINE (4 - Booster for Moderna series)] Future Scheduled 2023-01-06 INFLUENZA VACCINE [facility] Test 09:32:32 [code = INFLUENZA VACCINE] Future Scheduled 65+ [facility]OCOCCAL [facility] Test VACCINE (1 of 4 - PCV13) [code = 65+ PNEUMOCOCCAL VACCINE (1 of 4 - PCV13)] Future Scheduled COVID-19 VACCINE (1) [facility] [code = COVID-19 VACCINE (1)] Future Scheduled Hepatitis C screening [facility] Test (procedure) [code = 362768001] Future Scheduled [facility] SCREENING [code = BREAST CANCER SCREENING] Future Scheduled COLONOSCOPY SCREENING [facility] Test [code = COLONOSCOPY SCREENING] Future Scheduled SHINGLES VACCINES (#1) [facility] Test [code = SHINGLES VACCINES (#1)] Future Scheduled INFLUENZA VACCINE [facility] Test [code = INFLUENZA VACCINE] Encounters Start End Encounter Admission Attending Care Care Encounter Source Date/Time Date/Time Type Type Clinicians Facility Department ID 2023-02-09 2023-02-09 Outpatient [facility] [id number] Memoria 14:50:00 14:50:00 32 l Christiano 2023-02-09 2023-02-09 Outpatient [facility] [id number] Memoria 14:50:00 14:50:00 32 l Christiano 2023-01-08 2023-01-08 Outpatient Giovany [facility] [id number] [facility] 15:17:00 15:17:00 Ugonna [facility] 2023-01-08 2023-01-08 Outpatient FOG_Patel_A AOSM AO 553 [id number] Debby 00:00:00 00:00:00 Asya [id number] [facility] 2023-01-08 2023-01-08 Ugonna N AOSM [place] - Ortho [id number] Debby 00:00:00 00:00:00 Ligia Moreno MD: [id number] FOG_Ofc dic [facility] [address] , Ph. [phone] 2023-01-06 2023-01-06 Outpatient FOG_Patel_A AOSM AOSM 553 [id number] Debby 00:00:00 00:00:00 Asya [id number] [facility] Medicin e 2022-12-25 2022-12-27 Phone MHIE [facility] [id number] Memoria 21:28:24 05:59:59 Message Internal 14 l Medicine Christiano Stewartberg 2022-12-25 2022-12-27 Phone MHIE [facility] [id number] Memoria 21:28:24 05:59:59 Message Internal 14 l Medicine Christiano Stanford 2022-12-25 2022-12-26 Outpatient MHMG [facility] [id number] 15:28:24 23:59:59 14 2022-12-16 2022-12-16 Ambulatory MHIE [facility] [id number] Memoria 19:30:00 19:30:00 Pre-Reg Internal 30 l Medicine Christiano Stewartberg 2022-12-16 2022-12-16 Ambulatory MHIE [facility] [id number] Memoria 19:30:00 19:30:00 Pre-Reg Internal 30 l Medicine Christiano Stewartberg 2022-12-16 2022-12-16 Outpatient MHIE MHIE [id number] Memoria 13:30:00 13:30:00 30 l [place] 2022-12-16 2022-12-16 [facility] [id number] 13:30:00 13:30:00 Gokul 2022-12-09 2022-12-11 Phone MHIE [facility]MG [id number] Memoria 19:24:33 05:59:59 Message Internal 13 l Medicine Christiano Stewartberg 2022-12-09 2022-12-11 Phone MHIE [facility] [id number] Memoria 19:24:33 05:59:59 Message Internal 13 l Medicine Christiano Stewartberg 2022-12-09 2022-12-11 Phone MHIE [facility] [id number] Memoria 16:30:11 05:59:59 Message Internal 12 l Medicine Christiano Stewartberg 2022-12-09 2022-12-11 Phone MHIE [facility]MG [id number] Memoria 16:30:11 05:59:59 Message Internal 12 l Mae Stanford 2022-12-09 2022-12-10 Outpatient MHMG MHMG [id number] 13:24:33 23:59:59 13 2022-12-09 2022-12-10 Outpatient MHMG MHMG [id number] 10:30:11 23:59:59 12 2022-12-08 2022-12-10 Phone MHIE [facility]MG [id number] Memoria 21:47:25 05:59:59 Message Internal 11 l Medicine Christiano Stanford 2022-12-08 2022-12-10 Phone MHIE MG [id number] Memoria 21:47:25 05:59:59 Message Internal 11 Mae Stanford 2022-12-08 2022-12-09 Outpatient MHMG MHMG [id number] 15:47:25 23:59:59 11 2022-12-08 2022-12-09 Outpatient MHIE [facility] [id number] Memoria 20:50:00 05:59:59 Internal 31 Mae Stanford 2022-12-08 2022-12-09 Outpatient MHIE MG [id number] Memoria 20:50:00 05:59:59 Internal 31 Mae Stanford 2022-12-08 2022-12-08 [facility] [id number] 14:50:00 23:59:59 , Gokul Tam 2022-12-08 2022-12-08 Outpatient MHIE MHIE [id number] Memoria 14:50:00 14:50:00 31 mannie Alvarado 2022-11-30 2022-12-02 Phone MHIE [facility] [id number] Memoria 15:11:56 05:59:59 Message Internal 10 Mae Stanford 2022-11-30 2022-12-02 Phone MHIE MHMG [id number] Memoria 15:11:56 05:59:59 Message Internal 10 Mae Stanford 2022-11-30 2022-12-01 Outpatient MHMG MH[facility] [id number] 09:11:56 23:59:59 10 2022-11-27 2022-11-27 Telephone ABIEL StarkMB 1.2.811.238 [id number] Univers 00:00:00 00:00:00 [facility] 350.1.13.10 it [place] [phone] [facility] MEDICAL [address] OFFICE BUILDING 2022-11-24 2022-11-24 Telephone ERIC Oseguera 1.2.780.158 [id number] [id number] Univers 00:00:00 00:00:00 Charity Mannie GALLARDO 350.1.13.10 ity of HOSPITAL 4.2.7.2.686 [place] [phone] [facility] [address] 2022-11-08 2022-11-08 Orders Doctor ERIC 1.2.840.114 [id number] Univers 00:00:00 00:00:00 Only Unassigned, PAULINA 350.1.13.10 ity of [place] HOSPITAL 4.2.7.2.686 Bang as [phone] [facility] [address] 2022-10-26 2022-11-06 [facility] Veronica Craig 1.2.840. 1 [id number] Methodi 11:08:00 20:42:00 Encounter Juliana Menjivar 18823.1.1 373 [facility], Jorge 3.430.2.7 [facility] Chon .3.336954 Shae Miner .8 [facility] 2022-10-26 2022-11-06 Hospital Veronica Craig 1.2.840. 1 [id number] Methodi 11:08:00 20:42:00 Encounter Juliana Menjivar 12066.1.1 373 [facility], Jorge 3.430.2.7 [facility] .3.607276 Shae Miner .8 [facility] 2022-10-29 2022-10-29 [facility] Quan Verdugo 1.2.840.1 [id number] 21 [id number] Methodi 14:35:21 23:59:00 Encounter Marcello 64315.1.[address] 3.430.2.7 Hospit a .3.924277 l .8 2022-10-29 2022-10-29 [facility] Quan Verdugo 1.2.840.1 [id number] 21 [id number] Methodi 14:35:21 23:59:[address] 36106.1.[address] 3.430.2.7 Hospit a .3.035141 l .8 2022-10-29 2022-10-29 Orders Quan Verdugo 1.2.840.1 [id number] 452 [id number] Methodi 00:00:00 00:00:[address] C[address] 42663.1.[address] 3.430.2.7 Hospit a .3.222489 l .8 2022-10-29 2022-10-29 Orders Quan Verdugo 1.2.840.1 [id number] 709 [id number] Methodi 00:00:00 00:00:[address] C[address] 86863.1.[address] 3.430.2.7 Hospit a .3.227432 l .8 2022-10-29 2022-10-29 Orders Doctor ERIC 1.2.840.114 [id number] Univers 00:00:00 00:00:00 Only Unassigned, PAULINA 350.1.13.10 ity of [place] [facility] 4.2.7.2.686 [place] [phone] [place] [address] [address] 2022-10-21 2022-10-21 Office TATIANA Aponte 1.2.489.787 0501 [id number] Univers 13:00:00 13:40:00 [facility] 350.1.13.10 [place] [phone] [facility] [address] 2022-10-21 2022-10-21 Outpatient R FADI [facility] [id number] Univers 13:00:00 13:00:00 JAMARSUDARSHAN vidaly of [facility] 2022-10-19 2022-10-21 Phone MHIE [facility] Family [id number] Memoria 17:21:25 05:59:59 Message Medicine 09 l Abdoulaye [place] 2022-10-19 2022-10-21 Phone MHIE [facility] Family [id number] Memoria 17:21:25 05:59:59 Message Medicine 09 mannie brand 2022-10-19 2022-10-21 Phone MHIE MG [id number] Memoria 17:20:34 05:59:59 Message Internal 08 l Medicine Christiano Stanford 2022-10-19 2022-10-21 Phone MHIE MG [id number] Memoria 17:20:34 05:59:59 Message Internal 08 l Medicine Christiano Stanford 2022-10-19 2022-10-20 Outpatient MHMG MHMG [id number] 11:21:25 23:59:59 09 2022-10-19 2022-10-20 Outpatient MHMG MH[facility] [id number] 11:20:34 23:59:59 08 2022-10-20 2022-10-20 Transition CRISTINA Everett 1.2.840.114 [id number] Univers 00:00:00 00:00:00 of Care Meri PICKETT 350.1.13.10 [place] [id number] [facility] [address] 2022-10-13 2022-10-19 [facility] Vitaliy Huitron 1.2.840.1 14 [id number] Univers 12:32:00 17:02:00 Encounter YanethMohit Giron 350.1.13.10 ity of [facility] 4.2.7.2.686 [place] [id number] [place] [id number] Branch 2022-10-13 2022-10-19 Inpatient U [facility] [id number] Univers 12:32:00 17:02:00 jonel GIRON MOHIT [facility] 2022-10-14 2022-10-[address] [facility] 1.2.840.114 [id number] Univers 00:00:00 00:00:00 [facility] 350.1.13.10 [place] [id number] [facility] [address] OFFICE BUILDING 2022-10-13 2022-10-13 Surgery SCOTT Ferreira 1.2.532.310 2010 0233 Univers 18:34:00 21:34:00 Sandee GALLARDO 350.1.13.10 [facility] 4.2.7.2.686 [place] [id number] [facility] [address] 2022-06-09 2022-06-10 Outpatient nullFlavo [facility] [id number] Memoria 19:50:00 04:59:59 r Internal 29 l Medicine Christiano Stanford 2022-06-09 2022-06-10 Outpatient nullFlavo [facility] [id number] Memoria 19:50:00 04:59:59 r Internal 29 l [facility] Christiano Stanford 2022-06-09 2022-06-09 Outpatient [facility] [id number] 14:50:00 23:59:59 , Gokul Tam 2022-06-09 2022-06-09 Outpatient [facility] [id number] Memoria 14:50:00 14:50:00 29 l Christiano 2022-04-07 2022-04-07 Outpatient FOG_Patel_A AOSM AOSM [id number] Debby 00:00:00 00:00:00 Asya 524524 Orthop e dic Sports Medicin e 2022-01-06 2022-01-08 Phone nullFlavo [facility] Family [id number] Memoria 17:48:21 05:59:59 Message r Medicine 07 l Abdoulaye Domingo sunday 2022-01-06 2022-01-08 Phone nullFlavo [facility] [id number] Memoria 17:48:21 05:59:59 Message r Medicine 07 l Abdoulaye Domingo sunday 2022-01-06 2022-01-07 Outpatient [facility] [id number] 11:48:21 23:59:59 07 2021-09-16 2021-09-18 Inpatient [facility] [id number] [place] 00:00:00 00:00:00 UGONNA [address] 2021-09-15 2021-09-15 Outpatient [facility] [id number] [place] 00:00:00 00:00:00 UGONNA [address] 2021-09-01 2021-09-02 [place] [id number] Memoria 14:00:00 04:59:59 r Internal 28 l [facility] Christiano Stanford 2021-09-01 2021-09-02 [place] [id number] Memoria 14:00:00 04:59:59 r Internal 28 l [facility] Christiano Stanford 2021-09-01 2021-09-01 [facility] [id number] 09:00:00 23:59:59 , Gokul Tam 2021-09-01 2021-09-01 Outpatient JAZZYIE PANDA [id number] Memoria 09:00:00 09:00:00 28 mannie Christiano 2021-08-04 2021-08-04 Outpatient LEIGHTON MorenoCL LABO [id number] [facility] 18:11:00 18:11:00 Ugonna 73 [facility] 2021-08-04 2021-08-04 [address] [facility] [id number] [facility] 15:15:00 15:15:00 Ugonna [facility] [place] [facility] 2021-06-17 2021-06-17 [place] [id number] Memoria 19:10:00 19:10:00 Pre-Reg r Internal 25 l [facility] Christiano Stewartberg 2021-06-17 2021-06-17 [place] [id number] Memoria 19:10:00 19:10:00 Pre-Reg r Internal 25 l [facility] Christiano Stanford 2021-06-17 2021-06-17 [facility] [id number] 14:10:00 14:10:00 , Gokul Espino Anel 2021-06-17 2021-06-17 Outpatient MHIE JAZZYIE [id number] Memoria 14:00:00 14:00:00 Kenzie chand Christiano 2021-05-25 2021-05-30 [facility], 1.2.840.1 [id number] Methodi 19:30:00 16:18:00 Encounter Lupillo Saenz 23656.1.[address] 3.430.2.7 Hospit a .3.722081 l .8 2021-05-27 2021-05-27 Anesthesia Maurisio Navarro 1.2.840 .1 [id number] Methodi 13:57:00 17:30:00 Event Carli Obrien 31394.1.[address] 3.430.2.7 Hospit a .3.116898 l .8 2021-05-27 2021-05-27 Surgery Giovany 1.2.840.1 [id number] [id number] Methodi 13:30:00 15:35:00 Ugdebra Brand 25159.1.[address] 3.430.2.7 Hospit a .3.542846 l .8 2021-05-19 2021-05-20 Outpatient nullFlavo [facility] [id number] Memoria 19:50:00 04:59:59 r Internal 27 l Medicine Christiano Stanford 2021-05-19 2021-05-20 Outpatient nullFlavo [facility] [id number] Memoria 19:50:00 04:59:59 r Internal 27 l Medicine Christiano Stanford 2021-05-19 2021-05-19 [facility] [id number] 14:50:00 23:59:59 Gokul 2021-05-19 2021-05-19 Outpatient MHIE MHIE [id number] Memoria 14:50:00 14:50:00 27 mannie Alvarado 2021-05-14 2021-05-16 Phone nullFlavo [facility] [id number] Memoria 15:32:44 04:59:59 Message r Internal 06 l Medicine Christiano Stanford 2021-05-14 2021-05-16 Phone nullFlavo [facility] [id number] Memoria 15:32:44 04:59:59 Message r Internal 06 l [facility] Christiano Stanford 2021-05-14 2021-05-15 Outpatient MHMG [facility] [id number] 10:32:44 23:59:59 06 2021-05-13 2021-05-13 [facility] [id number] [facility] 18:57:00 18:57:[address] [place] [address] 2021-05-13 2021-05-13 Inpatient ALLAN Mcintosh [id number] [facility] 14:32:00 15:30:00 Everarod [facility] 2021-05-02 2021-05-02 Telephone Ralph, 1.2.840.1 [id number] Methodi 00:00:00 00:00:[address] 3.430.2.7 Hospit a .3.684317 l .8 2021-05-02 2021-05-02 Orders Ralph 1.2.840.1 [id number] Methodi 00:00:00 00:00:00 Only Jeanne 08574.1.[address] 3.430.2.7 Hospit a .3.795442 l .8 2021-04-17 2021-04-17 Telephone Jonathan, 1.2.840.1 [id number] 21 [id number] Methodi 00:00:00 00:00:[address] 3.430.2.7 Hospit a .3.520591 l .8 2021-04-15 2021-04-15 Outpatient BHAVANI McintoshO [id number] [facility] 18:27:00 18:27:00 Everardo 09 [facility] 2021-04-15 2021-04-15 Outpatient ALLAN Mcintosh [facility] [id number] [facility] 13:24:00 13:24:00 Everardo 23 [facility] 2021-04-09 2021-04-09 Office Anila, 1.2.840.1 [id number] Methodi 13:34:45 14:26:18 Visit Julio 90854.1.[address] Ennius 3.430.2.7 Hospit a .3.796771 l .8 2021-04-09 2021-04-09 Travel 1.2.840.1 1.2.780.860 2223 [id number] Methodi 00:00:00 00:00:[address] 3.430.2.7 0.2.7.3.698 spita .3.282061 084.8 l .8 2021-04-01 2021-04-03 Phone nullFlavo [facility] [id number] Memoria 14:22:32 04:59:59 Message r Internal 05 [facility] 2021-04-01 2021-04-03 Phone nullFlavo MHMG [id number] Memoria 14:22:32 04:59:59 Message r Internal 05 [facility] 2021-04-01 2021-04-02 Outpatient MHMG MHMG [id number] 09:22:32 23:59:59 05 2021-03-19 2021-03-20 Outpatient nullFlavo [facility] [id number] Memoria 14:30:00 04:59:59 r Internal [address] [place] [address] 2021-03-19 2021-03-20 [place] [id number] Memoria 14:30:00 04:59:59 r Internal [address] [place] [address] 2021-03-20 2021-03-20 Refill Rehan 1.2.840.1 [id number] Methodi 00:00:00 00:00:00 Angel[address] Ghosh [address]298.1.[address] 3.430.2.7 Hospit a .3.494646 l .8 2021-03-19 2021-03-19 [id number] 09:30:00 23:59:59 , Gokul Tam 2021-03-19 2021-03-19 Outpatient MHIE IE [id number] Memoria 09:30:00 09:30:00 26 [facility] 2021-03-18 2021-03-18 Orders Edison 1.2.840.1 [id number] Methodi 00:00:00 00:00:00 Only Angelo 66674.1.[address] 3.430.2.7 Hospit a .3.218098 l .8 2021-03-18 2021-03-18 Transcribe Yoel Jalloh 1.2.840.1 [id number] Methodi 00:00:00 00:00:00 Orders Maura 88020.1.[address] 3.430.2.7 Hospit a .3.876511 l .8 2021-03-13 2021-03-13 Orders Rehan, 1.2.840.1 [id number] 97515 Methodi 00:00:00 00:00:00 Only Angelica Ghosh 72874.1.[address] 3.430.2.7 Hospit a .3.428487 l .8 2021-03-10 2021-03-10 Office Yoel Jalloh 1.2.840.1 [id number] Methodi 12:40:13 13:32:58 Visit A. 86992.1.[address] 3.430.2.7 Hospit a .3.949416 l .8 2021-03-10 2021-03-10 Travel 1.2.840.1 1.2.780.060 3673 657965 Methodi 00:00:00 00:00:[address] 3.430.2.7 0.2.7.3.698 Ho spita .3.734805 084.8 l .8 2021-03-07 2021-03-07 Telephone Huggins, 1.2.840.1 [id number] 2099 693695 Methodi 00:00:00 00:00:[address] 3.430.2.7 Hospit a .3.664530 l .8 2021-03-05 2021-03-05 Office Yoel Jalloh 1.2.840.1 [id number] Methodi 13:24:30 14:00:14 Visit A. 39273.1.[address] 3.430.2.7 Hospit a .3.905471 l .8 2021-03-05 2021-03-05 Travel 1.2.840.1 1.2.659.340 0506 971420 Methodi 00:00:00 00:00:[address] 3.430.2.7 0.2.7.3.698 Ho spita .3.752289 084.8 l .8 2021-02-27 2021-02-27 Hospital Yoel Jalloh 1.2.840.1 [id number] Methodi 12:03:29 23:59:00 Encounter Angelica Van 26146.1.[address] 3.430.2.7 Hospit a .3.121375 l .8 2021-02-27 2021-02-27 Travel 1.2.840.1 1.2.817.248 3253 342417 Methodi 00:00:00 00:00:[address] 3.430.2.7 0.2.7.3.698 Ho spita .3.708115 084.8 l .8 2021-02-18 2021-02-18 Travel 1.2.840.1 1.2.941.000 4046 460132 Methodi 00:00:00 00:00:[address] 3.430.2.7 0.2.7.3.698 Ho spita .3.860581 084.8 l .8 2021-02-13 2021-02-13 Office Yoel Jalloh 1.2.840.1 [id number] 21 [id number] Methodi 13:36:30 15:18:31 Visit A. 04042.1.[address] 3.430.2.7 Hospit a .3.482100 l .8 2021-02-13 2021-02-13 Travel 1.2.840.1 1.2.577.516 5608 331752 Methodi 00:00:00 00:00:[address] 3.430.2.7 0.2.7.3.698 Ho spita .3.426428 084.8 l .8 2021-02-11 2021-02-12 Outpatient nullFlavo [facility] [id number] Memoria 19:00:00 04:59:59 r Internal 24 l Medicine Christiano Stewartberg 2021-02-11 2021-02-12 [place] [id number] Memoria 19:00:00 04:59:59 r Internal 24 [facility] 2021-02-11 2021-02-11 Outpatient [facility] [id number] 14:00:00 23:59:59 , Gokul Stallings Anel 2021-02-11 2021-02-11 Outpatient MHIE MHIE [id number] Memoria 14:00:00 14:00:00 24 mannie [place] 2020-08-14 2020-08-15 [place] [id number] Memoria 16:00:00 04:59:59 r Internal 23 [facility] 2020-08-14 2020-08-15 Outpatient nullFlavo [facility] [id number] Memoria 16:00:00 04:59:59 r Internal 23 [facility] 2020-08-14 2020-08-14 Outpatient [facility] [id number] 11:00:00 23:59:59 , Gokul William Anel 2020-08-14 2020-08-14 Outpatient MHIE MHIE [id number] Memoria 11:00:00 11:00:00 23 mannie Christiano 2020-07-03 2020-07-04 [place] [id number] Memoria 16:30:00 04:59:59 r Internal 22 [facility] 2020-07-03 2020-07-04 [place] [id number] Memoria 16:30:00 04:59:59 r Internal 22 [facility] 2020-07-03 2020-07-03 Outpatient [facility] [id number] 11:30:00 23:59:59 , Gokul Herman Anel 2020-07-03 2020-07-03 Outpatient MHIE MHIE [id number] Memoria 11:30:00 11:30:00 22 mannie QuintanillaChristiano 2020-04-12 2020-04-14 Phone nullFlavo MG [id number] Memoria 15:19:59 04:59:59 Message r Internal 04 [facility] 2020-04-12 2020-04-14 Phone nullFlavo MG [id number] Memoria 15:19:59 04:59:59 Message r Internal 04 l [facility] 2020-04-12 2020-04-13 Outpatient MHMG MG [id number] 10:19:59 23:59:59 04 2020-01-04 2020-01-06 Phone nullFlavo MHMG [id number] Memoria 20:34:41 05:59:59 Message r Internal 03 l [facility] 2020-01-04 2020-01-06 Phone nullFlavo MHMG [id number] Memoria 20:34:41 05:59:59 Message r Internal 03 l [facility] 2020-01-04 2020-01-05 Outpatient MHMG MG [id number] 14:34:41 23:59:59 03 2019-12-27 2019-12-29 Phone nullFlavo MG [id number] Memoria 15:49:50 05:59:59 Message r Internal 02 l [facility] 2019-12-27 2019-12-29 Phone nullFlavo MG [id number] Memoria 15:49:50 05:59:59 Message r Internal 02 l [facility] 2019-12-27 2019-12-28 Outpatient MHMG MG [id number] 09:49:50 23:59:59 02 2019-08-22 2019-08-22 [place] [id number] Memoria 19:30:00 19:30:00 Pre-Reg r Internal 20 l [facility] 2019-08-22 2019-08-22 [place] [id number] Memoria 19:30:00 19:30:00 Pre-Reg r Internal 20 l [facility] 2019-08-22 2019-08-22 Outpatient [facility] [id number] Memoria 14:30:00 14:30:[address] [place] [address] 2019-08-22 2019-08-22 Outpatient [facility] 110 [id number] 14:30:00 14:30:00 Gokul 2019-07-18 2019-07-18 [place] [id number] Memoria 19:30:00 19:30:00 Pre-Reg r Internal 21 l [facility] 2019-07-18 2019-07-18 [place] [id number] Memoria 19:30:00 19:30:00 [facility]-Reg r [facility] [place] 2019-07-18 2019-07-18 Outpatient MHIE MHIE [id number] Memoria 14:30:00 14:30:00 21 mannie QuintanillaChristiano 2019-07-18 2019-07-18 [facility] [id number] 14:30:00 14:30:00 Gokul Aravind Anel 2019-06-22 2019-06-24 Phone nullFlavo MG [id number] Memoria 15:14:43 04:59:59 Message r Internal 01 [facility] [place] 2019-06-22 2019-06-24 Phone nullFlavo MG [id number] Memoria 15:14:43 04:59:59 Message r Internal 01 [facility] [place] 2019-06-22 2019-06-23 Outpatient MG MG [id number] 10:14:43 23:59:59 2019-04-18 2019-04-19 [place] [id number] Memoria 19:30:00 04:59:59 r Internal [facility] [place] 2019-04-18 2019-04-19 [place] [id number] Memoria 19:30:00 04:59:59 r Internal 19 [facility] [place] 2019-04-18 2019-04-18 [facility]patient [facility] [id number] 14:30:00 23:59:59 Gokul 2019-04-18 2019-04-18 Outpatient IE IE [id number] Memoria 14:30:00 14:30:00 19 mannie QuintanillaChristiano 2018-11-15 2018-11-16 [place] [id number] Memoria 19:30:00 05:59:59 r Internal 18 [facility] 2018-11-15 2018-11-16 [place] [id number] Memoria 19:30:00 05:59:59 r Internal 18 [facility] 2018-11-15 2018-11-15 [facility]patient [facility] [id number] 13:30:00 23:59:59 , Gokul Tam 2018-11-15 2018-11-15 Outpatient MHIE MHIE [id number] Memoria 13:30:00 13:30:00 18 mannie Alvarado 2018-06-21 2018-06-22 Outpatient nullFlavo [facility] [id number] Memoria 18:30:00 04:59:59 r Internal [facility] [place] 2018-06-21 2018-06-22 [place] [id number] Memoria 18:30:00 04:59:59 r Internal 14 [facility] [place] 2018-06-21 2018-06-21 [id number] 13:30:00 23:59:59 , Gokul Tam 2018-06-21 2018-06-21 Outpatient MHIE MHIE [id number] Memoria 13:30:00 13:30:00 14 mannie Alvarado 2018-03-01 2018-03-03 Phone nullFlavo MHMG [id number] Memoria 22:57:00 04:59:59 Message r Internal 00 [facility] [place] 2018-03-01 2018-03-03 Phone nullFlavo MHMG [id number] Memoria 22:57:00 04:59:59 Message r Internal 00 [facility] [place] 2018-03-01 2018-03-02 Outpatient [facility] [id number] 17:57:00 23:59:59 00 2018-03-01 2018-03-02 Outpatient [facility] [id number] 17:57:00 23:59:59 00 2018-03-01 2018-03-02 Outpatient nullFlavo [facility] Family 4 [id number] Memoria 18:30:00 04:59:59 r Medicine 17 mannie [place] 2018-03-01 2018-03-02 Outpatient nullFlavo [facility] Family 4 [id number] Memoria 18:30:00 04:59:59 r Medicine 17 l Rivera [place] 2018-03-01 2018-03-01 Outpatient VISIT, MHMG [facility]MG [id number] 13:30:00 23:59:59 [facility] 2018-03-01 Ambulatory nullFlavo [facility] [id number] Memoria 18:30:00 18:30:00 Pre-Reg r Radiology 13 mannie Alvarado 2018-03-01 2018-03-01 Ambulatory nullFlavo [facility] [id number] Memoria 18:30:00 18:30:00 Pre-Reg r Radiology 15 mannie Alvarado 2018-03-01 2018-03-01 Ambulatory nullFlavo [facility]MG [id number] Memoria 18:30:00 18:30:00 Pre-Reg r Radiology 16 mannie Alvarado 2018-03-01 2018-03-01 Ambulatory nullFlavo [facility] [id number] Memoria 18:30:00 18:30:00 Pre-Reg r Radiology 15 mannie Alvarado 2018-03-01 2018-03-01 Ambulatory nullFlavo [facility] [id number] Memoria 18:30:00 18:30:00 Pre-Reg r Radiology 16 mannie Alvarado 2018-03-01 2018-03-01 Ambulatory nullFlavo [facility]MG [id number] Memoria 18:30:00 18:30:00 Pre-Reg r Radiology 13 mannie Alvarado 2018-03-01 2018-03-01 Outpatient MHIE MHIE [id number] Memoria 13:30:00 13:30:00 15 mannie Alvarado 2018-03-01 2018-03-01 Outpatient MHIE MHIE [id number] Memoria 13:30:00 13:30:00 17 mannie Alvarado 2018-03-01 2018-03-01 Outpatient MHIE MHIE [id number] Memoria 13:30:00 13:30:00 13 mannie Alvarado 2018-03-01 2018-03-01 Outpatient MHIE MHIE [id number] Memoria 13:30:00 13:30:00 16 mannei Alvarado 2018-03-01 2018-03-01 Outpatient VISIT, MHMG MHMG [id number] 13:30:00 13:30:00 NURSE STWC 16 [facility] 2018-03-01 2018-03-01 Outpatient VISIT, MHMG MHMG [id number] 13:30:00 13:30:00 NURSE STWC 15 [facility] 2018-03-01 2018-03-01 Outpatient VISIT, MHMG MHMG [id number] 13:30:00 13:30:00 NURSE STWC 13 [facility] 2018-03-01 2018-03-01 Outpatient VISIT, MHMG MHMG [id number] 13:30:00 13:30:00 [facility] STW [facility] 2018-03-01 2018-03-01 Outpatient VISIT, [facility] [id number] 13:30:00 13:30:00 N[facility]SE STW 13 [facility] 2018-02-15 2018-02-16 Outpatient nullFlavo [facility] [id number] Memoria 19:00:00 04:59:59 r Internal 12 [facility] [place] [facility] 2018-02-15 2018-02-16 Outpatient nullFlavo [facility] [id number] Memoria 19:00:00 04:59:59 [facility] 2018-02-15 2018-02-15 Outpatient VISIT, [facility] [id number] 14:00:00 23:59:59 NURSE STW 12 [facility] 2018-02-15 2018-02-15 Outpatient VISIT, [facility] [id number] 14:00:00 23:59:59 NURSE STW 12 [facility] 2018-02-15 2018-02-15 Outpatient MHIE MHIE [id number] Memoria 14:00:00 14:00:00 12 mannie Alvarado 2017-08-18 2017-08-18 Outpatient MHIE MHIE [id number] Memoria 13:30:00 13:30:00 11 mannie Alvarado 2017-08-18 2017-08-18 Outpatient MHIE MHIE [id number] Memoria 13:30:00 13:30:00 11 mannie Alvarado 2017-04-13 2017-04-13 Outpatient MHIE MHIE [id number] Memoria 13:30:00 13:30:00 10 mannie Alvarado 2017-04-13 2017-04-13 Outpatient MHIE MHIE [id number] Memoria 13:30:00 13:30:00 10 mannie Alvarado 2017-03-10 2017-03-10 Outpatient MHIE MHIE [id number] Memoria 13:30:00 13:30:00 07 mannie Alvarado 2017-03-10 2017-03-10 Outpatient MHIE MHIE [id number] Memoria 13:30:00 13:30:00 07 mannie Alvarado 2016-12-17 2016-12-17 Outpatient MHIE MHIE [id number] Memoria 13:00:00 13:00:00 09 mannie Christiano 2016-12-17 2016-12-17 Outpatient MHIE MHIE [id number] Memoria 13:00:00 13:00:00 08 mannie Christiano 2016-12-17 2016-12-17 Outpatient MHIE MHIE [id number] Memoria 13:00:00 13:00:00 08 mannie Christiano 2016-12-17 2016-12-17 Outpatient MHIE MHIE [id number] Memoria 13:00:00 13:00:00 09 mannie Christiano 2016-11-11 2016-11-11 Outpatient MHIE MHIE [id number] Memoria 13:30:00 13:30:00 06 mannie Alvarado 2016-11-11 2016-11-11 Outpatient MHIE MHIE [id number] Memoria 13:30:00 13:30:00 06 mannie Alvarado 2016-07-08 2016-07-08 Outpatient MHIE MHIE [id number] Memoria 13:30:00 13:30:00 05 mannie Alvarado 2016-07-08 2016-07-08 Outpatient MHIE MHIE [id number] Memoria 13:30:00 13:30:00 05 mannie Alvarado 2016-07-01 2016-07-01 Outpatient MHIE MHIE [id number] Memoria 13:30:00 13:30:00 04 mannie Alvarado 2016-07-01 2016-07-01 Outpatient MHIE MHIE [id number] Memoria 13:30:00 13:30:00 04 mannie Alvarado 2016-02-26 2016-02-26 Outpatient MHIE MHIE [id number] Memoria 13:30:00 13:30:00 01 mannie Alvarado 2016-02-26 2016-02-26 Outpatient MHIE MHIE [id number] Memoria 13:30:00 13:30:00 01 mannie Alvarado 2015-12-16 2015-12-16 Outpatient MHIE MHIE [id number] Memoria 13:00:00 13:00:00 02 mannie Alvarado 2015-12-16 2015-12-16 Outpatient MHIE MHIE [id number] Memoria 13:00:00 13:00:00 03 mannie Alvarado 2015-12-16 2015-12-16 Outpatient MHIE MHIE [id number] Memoria 13:00:00 13:00:00 03 mannie Alvarado 2015-12-16 2015-12-16 Outpatient PANDA MOSQUEDA [id number] Memoria 13:00:00 13:00:00 02 mannie Alvarado 2015-10-30 2015-10-30 Outpatient PANDA MOSQUEDA [id number] Memoria 13:30:00 13:30:00 00 mannie Alvarado 2015-10-30 2015-10-30 Outpatient ESTEPHANIA ESTEPHANIA [id number] Memoria 13:30:00 13:30:00 00 mannie Alvarado Results Test Description Test Time Test Comments Results Result [facility] e Comments - XR FLUORO NDL 2023-01-08 15:51:00 [facility] 1945 Sex: F Patient Name: SHANTELLE BUSTILLO Unit No: [id number] EXAMS: CPT CODE: [id number] XR FLUORO NDL 13414 FLUOROSCOPICALLY GUIDED INJECTION OF THE RIGHT HIP WITH STEROID AND LIDOCAINE COMMENT: COMPARISON: No prior exams available. After informed consent was obtained a needle was placed in the hip joint with fluoroscopic guidance. Its position was confirmed by injecting Isovue 300 and obtaining an AP radiograph. 1 seconds of fluoroscopy time was utilized. Subsequently 2mL of Kenalog 40 mg per cc and 2mL of 1 percent lidocaine was injected. No immediate complications were encountered. at 1551 Reported and signed by: Rocky Rios MD CC: Karlos Moreno MD Technologist: MARLENE VENTURA RT(R) Transcribed D/ (1551) SujathaJCL [facility] NAME: SHANTELLE BUSTILLO [address] [facility] PHYS: Karlos Galindo MD : 1945 AGE: 77 SEX: F [place] [address] LOC: Y.RAD PHONE #: [phone] EXAM DATE: 01/08/2023 STATUS: REG CLI FAX #: [phone] RAD #: D/C DT PAGE 1 Signed Report Patient Name: SHANTELLE BUSTILLO Unit No: [id number] EXAMS: CPT CODE: [id number] XR FLUORO NDL 33705 (Continued) Orig Print D/T: S: 01/08/2023 (1554) [facility] NAME: SHANTELLE BUSTILLO [address] [facility] PHYS: Karlos Galindo MD : 1945 AGE: 77 SEX: F [place] [address] LOC: Y.RAD PHONE #: [phone] EXAM DATE: 01/08/2023 STATUS: REG CLI FAX #: [phone] RAD #: D/C DT PAGE 2 Signed Report Anaerobic culture 2022-11-01 13:47:00 Test Item Value Reference Range Interpretation Comme nts Anaerobic culture No anaerobic organisms Specimen InformationSpecimen isolate (test code = isolated. Source: AspirateSpecimen Site: 22679-2) [id number] 13:47:00 Test Item Value Reference Range Interpretation Comments Anaerobic No anaerobic Specimen culture isolate organisms InformationS pecimen (test code = isolated. Source: Aspirat eSpecimen 60842-4) Site: [id number] 19:21:00 Test Item Value Reference Range Interpretation Comments Aerobic culture No growth Specimen isolate (test after 3 days. InformationSp ecimen code = 95989-3) Source: Aspi rateSpecimen Site: [facility] [id number] 19:21:00 Test Item Value Reference Range Interpretation Comments Aerobic culture No growth Specimen isolate (test after 3 days. [facility] ecimen code = 50879-6) Source: Aspi rateSpecimen Site: [facility], (w Contrast, Strain and 3D if needed)2022-10-28 23:17:08 Test Item Value Reference Interpretation Comments Range Ao Root Diameter 3.07 cm <=3.99 (test code = 6204262917) AoV Area, Vmax (test 1.90 cm2 >=1.5 code = 3256756224) AoV Area, VTI (test 2.43 cm2 code = 0230860528) AoV Mean PG (test 2.55 See_Comment [Automate d code = 5098790132) message] The system which generated this result transmitted reference range : 20 mmHg. The reference range was not used to interpret this result as normal/abnormal . AoV Peak PG (test 5.26 mmHg code = 7612319971) AoV Vmax (test code 1.19 m/s = 4034283443) AoV VTI (test code = 0.20 m 6609270530) IVS,d (test code = 1.36 cm 0.6-0.9 A 8123033020) IVS/LVPW,2D (test 1.13 code = 0980681079) Left Atrium 3.76 cm <=3.8 Dimension Anterior (test code = 8827679975) LV,d (test code = 4.94 cm 3209969011) LV EF,2D (test code 71.84 % = 2472886917) LV,s (test code = 3.24 cm 4525156480) LVOT area (test code 2.92 cm2 = 5306565367) LVOT Diam,S (test 1.93 cm code = 5207256203) LVOT Vmax (test code 0.74 m/s = 0779142290) LVOT VTI (test code 0.16 m = 5066127445) LVPWD,d (test code = 1.21 cm 0.60-1.19 A 5953143330) PV Pk Grad (test 5.77 See_Comment [Automated code = 6903616986) message] The system which generated this result transmitted reference range : 36 mmHg. The reference range was not used to interpret this result as normal/abnormal . PV VMAX (test code = 1.20 m/s <=3 1851168321) RVOT Vmax (test code 1.09 m/s = 3478142939) TR Vpeak (test code 2.89 m/s = 4383016043) MV E A ratio (test 0.61 code = 4692568826) TR pk grad (test 10.08 mmHg code = 8260956695) MR Vmax (test code = 0.96 m/s 9800625642) E wave decelartion 227.86 See_Comment [Automat ed time (test code = message] T he 7878687973) system which generated this result transmitted reference range : 200 msec. The reference range was not used to interpret this result as normal/abnormal . MV Peak A Jenaro (test 0.99 m/s code = 8113159551) MV valve area p 1/2 3.34 cm2 method (test code = 7095640858) MV Peak E Jenaro (test 0.62 m/s code = 7315043219) MV stenosis pressure 65.90 ms <=150 1/2 time (test code = 7086873838) LVOT stroke volume 0.47 cm3 (test code = 9290307854) AV LVOT peak 2.19 mmHg gradient (test code = 7602439660) Ascending aorta 3.83 cm (test code = 9720930050) Ao Root Diameter 3.07 cm (test code = 3994308988) MV Area VTI (test 2.63 cm2 code = 5357736542) MV mean gradient 1.06 See_Comment [Automated (test code = message] The 1503819006) system which generated this result transmitted reference range : 5 mmHg. The reference range was not used to interpret this result as normal/abnormal . LV SYS VOL (test 42.13 ml 14-42 A code = 5708016947) LV WALLER VOL (test 114.92 ml 46-106 A code = 3936556400) LA area s A4C (test 16.63 cm2 code = 9936291351) LV SV Teich 2D (test 72.79 ml code = 6041752340) LV Vol s Teich PSAX 42.13 ml (test code = 4678724879) MR peak grad (test 3.49 mmHg code = 9764909645) MV Vmax (test code = 0.91 m 6995894068) MV VTI Tips (test 0.20 m code = 4502188457) RVOT pk grad (test 4.73 mmHg code = 5960852279) AoV Vmn (test code = 0.73 m/s 0390032948) LV FS Teich 2D (test 34.45 code = 1413829128) MV AE ratio (test 1.64 code = 7995931983) LV FS Cube 2D (test 34.45 code = 9288601605) LVOT Vmn (test code 0.50 = 0653396867) Aov area Vmn (test 1.85 cm2 code = 1846104559) LVOT mean grad (test 1.18 mmHg code = 0384863231) 85 of MPHR (test 123.28 code = 9057027703) Calc MPHR (test code 145.04 bpm = 3169679960) LV SV Cube 2D (test 86.56 ml code = 6088184742) LV vol d cube 2D 120.49 ml (test code = 9961379346) LV vol s cube 2D 33.93 ml (test code = 6992182536) MV Decel slope (test 2.73 m/s2 code = 8082944401) Pred Exer Dur R1 6.29 (test code = 4661095394) Pred METS R1 (test 4.95 code = 8273231770) LA Vol MOD A4C (test 41.80 ml code = 4983102643) E noemi sept (test 0.05 code = 0532129472) E prime lat (test 0.08 code = 8013749258) Velocity Ratio 0.62 m/s (V1/V2) (test code = 4689) EF (test code = 63 % 54-74 7787188811) E/A ratio (test code 0.63 <=0.8 = 7192153710) LVOT VTI (CM) (test 16.00 cm code = 8315779459) RVSP (test code = 43.00 See_Comment A [Automate d 0998718553) message] The system which generated this result transmitted reference range : 40.00 mmHg. The reference range was not used to interpret this result as normal/abnormal . ADD (test code = Addendum by DELVIS Verdugo) Quan Armendariz MD on 10/28/2022 5:39 PM [employer] Left Ventricle: Left ventricle size is normal. Mildly increased wall thickness. Findings consistent with mild concentric hypertrophy. Normal systolic function with a visually estimated EF of 60 - 65%. Grade I (impaired relaxation) diastolic dysfunction. Tricuspid Valve: Trace valvular regurgitation. There is mild pulmonary hypertension present. Mildly elevated pulmonary artery systolic pressure. RVSP is approximately 43.00 mmHg. The following segments are hypokinetic: apical septal and apex. Aorta: Normal sized aortic root. Mildly dilated ascending aorta. PARVIN recommended if clinically indicated Left VentricleLeft ventricle size is normal. Mildly increased wall thickness. Findings consistent with mild concentric hypertrophy. Normal systolic function with a visually estimated EF of 60 - 65%. Grade I (impaired relaxation) diastolic dysfunction.Right VentricleRight ventricle size is normal. Normal systolic function.Left AtriumLeft atrium size is normal.Right AtriumRight atrium size is normal.IVC/SVCIVC diameter is less than or equal to 21 mm and decreases greater than 50% during inspiration; therefore the estimated right atrial pressure is normal (~3 mmHg).Mitral ValveValve structure is normal. No significant valvular regurgitation. No stenosis.Tricuspid ValveNot well visualized. Trace valvular regurgitation. There is mild pulmonary hypertension present. Mildly elevated pulmonary artery systolic pressure. RVSP is approximately 43.00 mmHg. No stenosis.Aortic ValveValve structure appears tricuspid. Mildly sclerotic cusps. No significant valvular regurgitation. No stenosis.Pulmonic ValveNot well visualized. No significant valvular regurgitation. No stenosis.Pericardium There is no pericardial effusion present.AortaNormal sized aortic root. Mildly dilated ascending aorta.Study DetailsStudy quality was adequate. A complete 2D, color flow Doppler and spectral Doppler echocardiogram was performed.The apical, parasternal, subcostal and suprasternal views were obtained. Patient exhibited sinus rhythm.Wall Scoring BaselineScore Index: 1.12The following segments are hypokinetic: apical septal and apex.All other segments are normal. Lab Interpretation Abnormal (test code = 45615-0) [facility], (w Contrast, Strain and 3D if needed)2022-10-28 23:17:08 Test Item Value Reference Interpretation Comments Range Ao Root Diameter 3.07 cm <=3.99 (test code = 5345544831) AoV Area, Vmax (test 1.90 cm2 >=1.5 code = 5477395342) AoV Area, VTI (test 2.43 cm2 code = 4780835936) AoV Mean PG (test 2.55 See_Comment [Automate d code = 4062879599) message] The system which generated this result transmitted reference range : 20 mmHg. The reference range was not used to interpret this result as normal/abnormal . AoV Peak PG (test 5.26 mmHg code = 5817860732) AoV Vmax (test code 1.19 m/s = 1504271939) AoV VTI (test code = 0.20 m 2877911556) IVS,d (test code = 1.36 cm 0.6-0.9 A 0473543058) IVS/LVPW,2D (test 1.13 code = 4741515396) Left Atrium 3.76 cm <=3.8 Dimension Anterior (test code = 3067569439) LV,d (test code = 4.94 cm 0976009381) LV EF,2D (test code 71.84 % = 7407457007) LV,s (test code = 3.24 cm 4326809518) LVOT area (test code 2.92 cm2 = 6685664361) LVOT Diam,S (test 1.93 cm code = 3541949700) LVOT Vmax (test code 0.74 m/s = 7904784416) LVOT VTI (test code 0.16 m = 5484259381) LVPWD,d (test code = 1.21 cm 0.60-1.19 A 0789239090) PV Pk Grad (test 5.77 See_Comment [Automated code = 6690990649) message] The system which generated this result transmitted reference range : 36 mmHg. The reference range was not used to interpret this result as normal/abnormal . PV VMAX (test code = 1.20 m/s <=3 5074851801) RVOT Vmax (test code 1.09 m/s = 7188546371) TR Vpeak (test code 2.89 m/s = 6822573196) MV E A ratio (test 0.61 code = 0090725952) TR pk grad (test 10.08 mmHg code = 4266838699) MR Vmax (test code = 0.96 m/s 0786198177) E wave decelartion 227.86 See_Comment [Automat ed time (test code = message] T he 4789473717) system which generated this result transmitted reference range : 200 msec. The reference range was not used to interpret this result as normal/abnormal . MV Peak A Jenaro (test 0.99 m/s code = 0122738445) MV valve area p 1/2 3.34 cm2 method (test code = 8939466590) MV Peak E Jenaro (test 0.62 m/s code = 5324755271) MV stenosis pressure 65.90 ms <=150 1/2 time (test code = 9127182674) LVOT stroke volume 0.47 cm3 (test code = 4227791088) AV LVOT peak 2.19 mmHg gradient (test code = 0566279686) Ascending aorta 3.83 cm (test code = 7517317507) Ao Root Diameter 3.07 cm (test code = 2876062038) MV Area VTI (test 2.63 cm2 code = 2552230674) MV mean gradient 1.06 See_Comment [Automated (test code = message] The 9773180135) system which generated this result transmitted reference range : 5 mmHg. The reference range was not used to interpret this result as normal/abnormal . LV SYS VOL (test 42.13 ml 14-42 A code = 4344632328) LV WALLER VOL (test 114.92 ml 46-106 A code = 3932042756) LA area s A4C (test 16.63 cm2 code = 0515496034) LV SV Teich 2D (test 72.79 ml code = 8735166956) LV Vol s Teich PSAX 42.13 ml (test code = 7606875714) MR peak grad (test 3.49 mmHg code = 7580922192) MV Vmax (test code = 0.91 m 8330411283) MV VTI Tips (test 0.20 m code = 4068655017) RVOT pk grad (test 4.73 mmHg code = 5995462200) AoV Vmn (test code = 0.73 m/s 8693015598) LV FS Teich 2D (test 34.45 code = 9162625482) MV AE ratio (test 1.64 code = 5226022672) LV FS Cube 2D (test 34.45 code = 8471535299) LVOT Vmn (test code 0.50 = 8344087091) Aov area Vmn (test 1.85 cm2 code = 1103852174) LVOT mean grad (test 1.18 mmHg code = 0744336976) 85 of MPHR (test 123.28 code = 1855202359) Calc MPHR (test code 145.04 bpm = 1361512786) LV SV Cube 2D (test 86.56 ml code = 8786825938) LV vol d cube 2D 120.49 ml (test code = 7710528577) LV vol s cube 2D 33.93 ml (test code = 2779948846) MV Decel slope (test 2.73 m/s2 code = 5378727913) Pred Exer Dur R1 6.29 (test code = 9673559985) Pred METS R1 (test 4.95 code = 8378033345) LA Vol MOD A4C (test 41.80 ml code = 7725386007) E noemi sept (test 0.05 code = 5825399579) E prime lat (test 0.08 code = 6935554281) Velocity Ratio 0.62 m/s (V1/V2) (test code = 4689) EF (test code = 63 % 54-74 1431951914) E/A ratio (test code 0.63 <=0.8 = 1203258781) LVOT VTI (CM) (test 16.00 cm code = 9081150606) RVSP (test code = 43.00 See_Comment A [Automate d 4079627245) message] The system which generated this result transmitted reference range : 40.00 mmHg. The reference range was not used to interpret this result as normal/abnormal . ADD (test code = Addendum by DELVIS Verdugo) Quan Armendariz MD on 10/28/2022 5:39 PM [employer] Left Ventricle: Left ventricle size is normal. Mildly increased wall thickness. Findings consistent with mild concentric hypertrophy. Normal systolic function with a visually estimated EF of 60 - 65%. Grade I (impaired relaxation) diastolic dysfunction. Tricuspid Valve: Trace valvular regurgitation. There is mild pulmonary hypertension present. Mildly elevated pulmonary artery systolic pressure. RVSP is approximately 43.00 mmHg. The following segments are hypokinetic: apical septal and apex. Aorta: Normal sized aortic root. Mildly dilated ascending aorta. PARVIN recommended if clinically indicated Left VentricleLeft ventricle size is normal. Mildly increased wall thickness. Findings consistent with mild concentric hypertrophy. Normal systolic function with a visually estimated EF of 60 - 65%. Grade I (impaired relaxation) diastolic dysfunction.Right VentricleRight ventricle size is normal. Normal systolic function.Left AtriumLeft atrium size is normal.Right AtriumRight atrium size is normal.IVC/SVCIVC diameter is less than or equal to 21 mm and decreases greater than 50% during inspiration; therefore the estimated right atrial pressure is normal (~3 mmHg).Mitral ValveValve structure is normal. No significant valvular regurgitation. No stenosis.Tricuspid ValveNot well visualized. Trace valvular regurgitation. There is mild pulmonary hypertension present. Mildly elevated pulmonary artery systolic pressure. RVSP is approximately 43.00 mmHg. No stenosis.Aortic ValveValve structure appears tricuspid. Mildly sclerotic cusps. No significant valvular regurgitation. No stenosis.Pulmonic ValveNot well visualized. No significant valvular regurgitation. No stenosis.Pericardium There is no pericardial effusion present.AortaNormal sized aortic root. Mildly dilated ascending aorta.Study DetailsStudy quality was adequate. A complete 2D, color flow Doppler and spectral Doppler echocardiogram was performed.The apical, parasternal, subcostal and suprasternal views were obtained. Patient exhibited sinus rhythm.Wall Scoring BaselineScore Index: 1.12The following segments are hypokinetic: apical septal and apex.All other segments are normal. Lab Interpretation Abnormal (test code = 35828-7) [facility]2022-12-28 14:36:00 Test Item Value Reference Range Interpretation Comments Gram stain No WBC's or Specimen isolate (test organisms seen. Information Specimen code = 1469) Source: Aspirat eSpecime Site: right hip aspiration [facility]2022-12-28 14:36:00 Test Item Value Reference Range Interpretation Comments Gram stain No WBC's or Specimen isolate (test organisms seen. Information Specimen code = 1469) [facility] 12 [id number] 19:38:11 Test Item Value Reference Range Interpretation Comments Ventricular rate (test 86 code = 253) Atrial rate (test code 86 = 255) NV interval (test code 184 = 266) QRSD interval (test 86 code = 260) QT interval (test code 360 = 264) QTC interval (test code 430 = 265) P axis 1 (test code = 55 267) QRS axis 1 (test code = 64 268) T wave axis (test code 68 = 270) EKG impression (test Sinus rhythm with code = 273) occasional premature ventricular complexes-Otherwise normal ECG-In automated comparison with ECG of 25-MAY-2021 21:16,-premature ventricular complexes are now present- [place] [address] [id number] 19:38:11 Test Item Value Reference Range Interpretation Comments Ventricular rate (test 86 code = 253) Atrial rate (test code 86 = 255) NV interval (test code 184 = 266) QRSD interval (test 86 code = 260) QT interval (test code 360 = 264) QTC interval (test code 430 = 265) P axis 1 (test code = 55 267) QRS axis 1 (test code = 64 268) T wave axis (test code 68 = 270) EKG impression (test Sinus rhythm with code = 273) occasional premature ventricular complexes-Otherwise normal ECG-In automated comparison with ECG of 25-MAY-2021 21:16,-premature ventricular complexes are now present- [facility] [id number] 13:59:12 Test Item Value Reference Range Interpretation Comments SARS-CoV-2 (COVID-19) RNA Not detected [Presence] in Respiratory specimen by AURY with probe detection (test code = 32495-0) Whether patient resides in a No congregate care setting (test code = 69962-1) Date and time of symptom onset Unknown (test code = 19388-9) Whether the patient was No hospitalized for condition of interest (test code = 99237-1) Whether the patient was admitted No to intensive care unit (ICU) for condition of interest (test code = 88571-6) Whether patient is employed in a No healthcare setting (test code = 00000-4) Whether the patient has symptoms No related to condition of interest (test code = 65451-3) status (test code = No 31946-9) [facility] METABOLIC PANEL (67943)2022-10-17 13:03:38 Test Item Value Reference Range Interpretation Comments NA (test code = 133 mmol/L 135-145 L 3661657859) K (test code = 4.3 mmol/L 3.5-5.0 7987228313) CL (test code = 101 mmol/L 98-108 5877225281) CO2 TOTAL (test code = 25 mmol/L 23-31 1853872422) AGAP (test code = 2-16 8578347839) BUN (test code = 27 mg/dL 7-23 H 8773372822) GLUCOSE (test code = 99 mg/dL 70-110 3868941830) CREATININE (test code = 1.38 mg/dL 0.50-1.04 H 8350814513) TOTAL BILI (test code = 0.6 mg/dL 0.1-1.6 8091517936) CALCIUM (test code = 8.8 mg/dL 8.6-10.6 3472520350) T PROTEIN (test code = 6.6 g/dL 6.3-8.2 0067814056) ALBUMIN (test code = 3.7 g/dL 3.5-5.0 0858986039) ALK PHOS (test code = 47 U/L 34-122 0835687186) ALTv (test code = 44 U/L 5-35 H 1742-6) AST(SGOT) (test code = 80 U/L 13-40 H 6186617642) eGFR (test code = mL/min/1.73m2 6586932848) YIFAN (test code = YIFAN) Association of Glomerular Filtration Rate (GFR) and Staging of Kidney Disease* + --+ --+ ------+| GFR (mL/min/1.73 m2) ?| With Kidney Damage ?| ?Without Kidney Damage+ --------+ --------+ +| ?>90 ?| ?Stage one ?| ? Normal ?+ ---+ ---+ -------+| ?60-89 ?| ?Stage two ?| ? Decreased GFR ? + --+ --+ ------+| ?30-59 ?| ?Stage three ?| ? Stage three ? + --+ --+ ------+| ?15-29 ?| ?Stage four ? | ? Stage four ?+ ---+ ---+ -------+| ?<15 (or dialysis) ? ?| ?Stage five ? | ? Stage five ?+ ---+ ---+ -------+ *Each stage assumes the associated GFR level has been in effect for at least three months. ?Stages 1 to 5, with or without kidney disease, indicate chronic kidney disease. Notes: Determination of stages one and two (with eGFR >59mL/min/1.73 m2) requires estimation of kidney damage for at least three months as defined by structural or functional abnormalities of the kidney, manifested by either:Pathological abnormalities or Markers of kidney damage (including abnormalities in the composition of the blood or urine or abnormalities in imaging tests). Lab Interpretation Abnormal (test code = 79189-3) [facility]. METABOLIC PANEL ([id number])2022-10-17 00:08:27 Test Item Value Reference Range Interpretation Comments NA (test code = 132 mmol/L 135-145 L 3115537429) K (test code = 4.5 mmol/L 3.5-5.0 1545309231) CL (test code = 102 mmol/L 98-108 1676013957) CO2 TOTAL (test code = 25 mmol/L 23-31 1127113198) AGAP (test code = 2-16 2660326791) BUN (test code = 25 mg/dL 7-23 H 8055584285) GLUCOSE (test code = 137 mg/dL 70-110 H 1067366931) CREATININE (test code = 1.30 mg/dL 0.50-1.04 H 4993982575) TOTAL BILI (test code = 0.4 mg/dL 0.1-1.2 4450779253) CALCIUM (test code = 8.9 mg/dL 8.6-10.6 7286742521) T PROTEIN (test code = 7.1 g/dL 6.3-8.2 1140724540) ALBUMIN (test code = 3.9 g/dL 3.5-5.0 9913594790) ALK PHOS (test code = 51 U/L 34-122 0216859101) ALTv (test code = 43 U/L 5-35 H 1742-6) AST(SGOT) (test code = 70 U/L 13-40 H 2014023003) eGFR (test code = mL/min/1.73m2 2049290103) YIFAN (test code = YIFAN) Association of Glomerular Filtration Rate (GFR) and Staging of Kidney Disease* + --+ --+ ------+| GFR (mL/min/1.73 m2) ?| With Kidney Damage ?| ?Without Kidney Damage+ --------+ --------+ +| ?>90 ?| ?Stage one ?| ? Normal ?+ ---+ ---+ -------+| ?60-89 ?| ?Stage two ?| ? Decreased GFR ? + --+ --+ ------+| ?30-59 ?| ?Stage three ?| ? Stage three ? + --+ --+ ------+| ?15-29 ?| ?Stage four ? | ? Stage four ?+ ---+ ---+ -------+| ?<15 (or dialysis) ? ?| ?Stage five ? | ? Stage five ?+ ---+ ---+ -------+ *Each stage assumes the associated GFR level has been in effect for at least three months. ?Stages 1 to 5, with or without kidney disease, indicate chronic kidney disease. Notes: Determination of stages one and two (with eGFR >59mL/min/1.73 m2) requires estimation of kidney damage for at least three months as defined by structural or functional abnormalities of the kidney, manifested by either:Pathological abnormalities or Markers of kidney damage (including abnormalities in the composition of the blood or urine or abnormalities in imaging tests). Lab Interpretation Abnormal (test code = 34774-8) [facility] 00:08:27 Test Item Value Reference Range Interpretation Comments MAGNESIUM (test code = 1611859959) 1.7 mg/dL 1.7-2.4 Lab Interpretation (test code = Normal 75022-7) [facility] (for use with [facility]arin Infusion)2022-10-14 13:03:02 Test Item Value Reference Range Interpretation Comments APTT Patient (test code See_Comment H [Au tomated message] = 3173-2) The system [employer] generated this result transmitted ref erence range: 26 - 36 Seconds. The reference range was not used to int erpret this result as normal/abnormal . Lab Interpretation (test Abnormal code = 35236-9) [facility] use with [facility] Infusion)2022-10-14 13:03:02 Test Item Value Reference Range Interpretation Comments APTT Patient (test code See_Comment H [Au tomated message] = 3173-2) The system [employer] generated this result transmitted ref erence range: 26 - 36 Seconds. The reference range was not used to int erpret this result as normal/abnormal . Lab Interpretation (test Abnormal code = 03454-6) [facility]GLYCOSYLATED HEMOGLOBIN (A1C)2022-10-14 01:40:37 Test Item Value Reference Range Interpretation Comments HGB A1C (test code = 6.2 % 4.0-5.7 H 4548-4) YIFAN (test code = YIFAN) Reference RangesNormal: <5.7%Prediabetes: 5.7 - 6.4%Diabetes: > 6.5% Lab Interpretation (test Abnormal code = 69656-1) [facility] (A1C)2022-10-14 01:40:37 Test Item Value Reference Range Interpretation Comments HGB A1C (test code = 6.2 % 4.0-5.7 H 4548-4) YIFAN (test code = YIFAN) Reference RangesNormal: <5.7%Prediabetes: 5.7 - 6.4%Diabetes: > 6.5% Lab Interpretation (test Abnormal code = 83214-6) [facility] (TTE)2022-10-14 00:29:09 Test Item Value Reference Range Interpretation Comments Height (test code = in 7061637469) Weight (test code = lbs 3291239686) Systolic BP (test code mmHg = 6382107781) Diastolic BP (test code mmHg = 3545836982) Heart Rate (test code = bpm 6812412409) LVOT stroke volume 74.00 cm3 (test code = 8751687792) EF(Teich) (test code = 62.30 % 1942795210) LVIDD (test code = 4.90 cm 7748482830) LVIDS (test code = 3.30 cm 3271147894) Left Ventricular End 43.0 mL Systolic Volume by Teichholz Method (test code = 9309595) Left Ventricular End 114.1 mL Diastolic Volume by Teichholz Method (test code = 9252301) IVS (test code = 1.05 cm 4210812067) LVPWD (test code = 1.03 cm 9637981786) LVOT diameter (test 1.86 cm code = 5061720161) LVOT area (test code = 2.70 cm2 8067454064) FS (test code = 34 % 0448104948) MV Peak E Jenaro (test 91.3 cm/s code = 1321444188) MV Peak A Jenaor (test 119.8 cm/s code = 4759554403) E/A ratio (test code = ratio 2948266465) E wave decelartion time 0.25 s (test code = 4195838828) MV E/e' septal (test 3.9 cm/s code = 4521603910) LA Volume Index (BP) 45.5 mL/m2 (test code = 5047906753) LA volume (BP) (test 90.6 mL code = 6042368572) LVOT peak jenaro (test 127.9 cm/s code = 3446890121) LVOT mn grad (test code mmHg = 8262304240) BSA (test code = 1.99 m2 1780817689) LA size (test code = 3.5 cm 6540480389) LAV(MOD-sp2) (test code 88.80 mL = 7601792591) LAV(MOD-sp4) (test code 89.30 mL = 0648401587) Tapse (test code = 2.03 cm 2296406307) Aortic valve mean 126.3 cm/s velocity (test code = 7272873427) Ao peak jenaro (test code 194.1 cm/s = 4744713364) Ao VTI (test code = 39.6 cm 6091568545) AV LVOT peak gradient mmHg (test code = 0435588402) LVOT peak VTI (test 27.2 cm code = 0251071271) AV area by cont VTI 1.9 cm2 (test code = 4702826304) AV area peak jenaro (test 1.8 cm2 code = 4244613365) LV V1 mean (test code = 87.80 cm/s 2286659303) Ao max PG (test code = 15.10 mm[Hg] 1058241372) MV Prop V (test code = 39.40 cm/s 8843894574) TR Peak Jenaro (test code 302.7 cm/s = 3953798545) Triscuspid Valve mmHg Regurgitation Peak Gradient (test code = 3130663412) Ao root diam (test code 2.80 cm = 7979222169) AV peak gradient (test mmHg code = 2437479570) AV valve area (test 1.87 cm2 code = 0369975837) AV mean gradient (test mmHg code = 7721173147) Aortic root (test code 2.8 cm = 2615408378) Ao root annulus (test 2.8 cm code = 1570346436) PW (test code = 1.03 cm 0.6-1.4 9283763629) EF - 2D (test code = 62.30 % 53980168) Interventricular Septum 1.05 cm Diastolic Thickness by 2D (test code = 8121164) A4C EF (test code = 53.00 % 2130615626) EF(sp4-el) (test code = 52.50 % 1991768597) SV(MOD-sp4) (test code 74.70 mL = 0995838529) SV(sp4-el) (test code = 79.00 mL 1167266729) Radiology Study observation (narrative) (test code = 01136-9) YIFAN (test code = YIFAN) ?Left?Ventricle: Left ventricle size is normal. Normal wall thickness. See diagram for wall motion findings. Akinesis of the apex, severe hypokinesis of the mid to apical inferoseptal wall, and apical anteroseptal wall. Mildly reduced systolic function with a visually estimated EF of 40 - 45%. No LV thrombus. There is grade 2 diastolic dysfunction and impaired relaxation. Elevated left ventricular filling pressure. ?Right?Ventricle: Right ventricle size is normal. Normal systolic function. TAPSE is 2.03 cm. ?Tricuspid?Valve: Tricuspid valve structure is normal. Mild transvalvular regurgitation. Right ventricular systolic pressure is 35-40 mmHg. ?RA pressure is 0-5 mmHg. Left VentricleLeft ventricle size is normal. Normal wall thickness. See diagram for wall motion findings. Akinesis of the apex, severe hypokinesis of the mid to apical inferoseptal wall, and apical anteroseptal wall. Mildly reduced systolic function with a visually estimated EF of 40 - 45%. No LV thrombus. There is grade 2 diastolic dysfunction and impaired relaxation. Elevated left ventricular filling pressure.Right VentricleRight ventricle size is normal. Normal systolic function. TAPSE is 2.03 cm.Left AtriumLeft atrium is moderately dilated.Right AtriumRight atrium size is normal.IVC/SVCIVC diameter is less than or equal to 21 mm and decreases greater than 50% during inspiration; therefore the estimated right atrial pressure is normal (~0-5 mmHg).Mitral ValveMitral valve structure is normal. Mild mitral annular calcification. Trace transvalvular regurgitation. No stenosis.Tricuspid ValveTricuspid valve structure is normal. Mild transvalvular regurgitation. Right ventricular systolic pressure is 35-40 mmHg. RA pressure is 0-5 mmHg.Aortic ValveAortic valve opens well. Mildly thickened cusps. Mildly calcified cusps. Trace transvalvular regurgitation. No hemodynamically significant .Pulmonic ValveNot well visualized. Trace transvalvular regurgitation. No stenosis.Ascending AortaNormal sized annulus and sinus of Valsalva.PericardiumTr ivial pericardial effusion present. No indication of cardiac tamponade.Study DetailsA complete echocardiogram was performed using 2D, color flow Doppler and spectral Doppler. 5 mL of Lumason ultrasound enhancing agent used.Wall Scoring BaselineScore Index: 1.29The following segments are akinetic: apex.The following segments are hypokinetic: mid anteroseptal, mid inferoseptal and apical septal.All other segments are normal. Akinesis of the apex, severe hypokinesis of the mid to apical inferoseptal wall, and apical anteroseptal wall. [facility]2022-10-14 00:29:09 Test Item Value Reference Range Interpretation Comments Height (test code = in 3588509022) Weight (test code = lbs 9646892146) Systolic BP (test code mmHg = 4142071265) Diastolic BP (test code mmHg = 0930596041) Heart Rate (test code = bpm 6472298782) LVOT stroke volume 74.00 cm3 (test code = 4034361947) EF(Teich) (test code = 62.30 % 3368668162) LVIDD (test code = 4.90 cm 3240481923) LVIDS (test code = 3.30 cm 3973634401) Left Ventricular End 43.0 mL Systolic Volume by Teichholz Method (test code = 8843082) Left Ventricular End 114.1 mL Diastolic Volume by Teichholz Method (test code = 4955987) IVS (test code = 1.05 cm 0681856022) LVPWD (test code = 1.03 cm 4379867880) LVOT diameter (test 1.86 cm code = 1305894252) LVOT area (test code = 2.70 cm2 9805455381) FS (test code = 34 % 8261930982) MV Peak E Jenaro (test 91.3 cm/s code = 7400786223) MV Peak A Jenaro (test 119.8 cm/s code = 1943979094) E/A ratio (test code = ratio 3958195256) E wave decelartion time 0.25 s (test code = 5600957008) MV E/e' septal (test 3.9 cm/s code = 3782829740) LA Volume Index (BP) 45.5 mL/m2 (test code = 7320184549) LA volume (BP) (test 90.6 mL code = 7306326915) LVOT peak jenaro (test 127.9 cm/s code = 6701576445) LVOT mn grad (test code mmHg = 5017054882) BSA (test code = 1.99 m2 3644455947) LA size (test code = 3.5 cm 9460375105) LAV(MOD-sp2) (test code 88.80 mL = 3533653153) LAV(MOD-sp4) (test code 89.30 mL = 1749110333) Tapse (test code = 2.03 cm 8964013673) Aortic valve mean 126.3 cm/s velocity (test code = 4273634950) Ao peak jenaro (test code 194.1 cm/s = 1786007105) Ao VTI (test code = 39.6 cm 1052569728) AV LVOT peak gradient mmHg (test code = 7141448223) LVOT peak VTI (test 27.2 cm code = 2027425767) AV area by cont VTI 1.9 cm2 (test code = 4430372499) AV area peak jenaro (test 1.8 cm2 code = 5457334660) LV V1 mean (test code = 87.80 cm/s 0918480199) Ao max PG (test code = 15.10 mm[Hg] 2359577838) MV Prop V (test code = 39.40 cm/s 8227367936) TR Peak Jenaro (test code 302.7 cm/s = 3219096849) Triscuspid Valve mmHg Regurgitation Peak Gradient (test code = 0967137850) Ao root diam (test code 2.80 cm = 6489528214) AV peak gradient (test mmHg code = 9498615306) AV valve area (test 1.87 cm2 code = 7462379244) AV mean gradient (test mmHg code = 3617062982) Aortic root (test code 2.8 cm = 2566890061) Ao root annulus (test 2.8 cm code = 3046824619) PW (test code = 1.03 cm 0.6-1.5 9677610535) EF - 2D (test code = 62.30 % 71303797) Interventricular Septum 1.05 cm Diastolic Thickness by 2D (test code = 5756418) A4C EF (test code = 53.00 % 6528954997) EF(sp4-el) (test code = 52.50 % 3075848147) SV(MOD-sp4) (test code 74.70 mL = 0404996686) SV(sp4-el) (test code = 79.00 mL 7961803154) Radiology Study observation (narrative) (test code = 12300-6) YIFAN (test code = YIFAN) ?Left?Ventricle: Left ventricle size is normal. Normal wall thickness. See diagram for wall motion findings. Akinesis of the apex, severe hypokinesis of the mid to apical inferoseptal wall, and apical anteroseptal wall. Mildly reduced systolic function with a visually estimated EF of 40 - 45%. No LV thrombus. There is grade 2 diastolic dysfunction and impaired relaxation. Elevated left ventricular filling pressure. ?Right?Ventricle: Right ventricle size is normal. Normal systolic function. TAPSE is 2.03 cm. ?Tricuspid?Valve: Tricuspid valve structure is normal. Mild transvalvular regurgitation. Right ventricular systolic pressure is 35-40 mmHg. ?RA pressure is 0-5 mmHg. Left VentricleLeft ventricle size is normal. Normal wall thickness. See diagram for wall motion findings. Akinesis of the apex, severe hypokinesis of the mid to apical inferoseptal wall, and apical anteroseptal wall. Mildly reduced systolic function with a visually estimated EF of 40 - 45%. No LV thrombus. There is grade 2 diastolic dysfunction and impaired relaxation. Elevated left ventricular filling pressure.Right VentricleRight ventricle size is normal. Normal systolic function. TAPSE is 2.03 cm.Left AtriumLeft atrium is moderately dilated.Right AtriumRight atrium size is normal.IVC/SVCIVC diameter is less than or equal to 21 mm and decreases greater than 50% during inspiration; therefore the estimated right atrial pressure is normal (~0-5 mmHg).Mitral ValveMitral valve structure is normal. Mild mitral annular calcification. Trace transvalvular regurgitation. No stenosis.Tricuspid ValveTricuspid valve structure is normal. Mild transvalvular regurgitation. Right ventricular systolic pressure is 35-40 mmHg. RA pressure is 0-5 mmHg.Aortic ValveAortic valve opens well. Mildly thickened cusps. Mildly calcified cusps. Trace transvalvular regurgitation. No hemodynamically significant .Pulmonic ValveNot well visualized. Trace transvalvular regurgitation. No stenosis.Ascending AortaNormal sized annulus and sinus of Valsalva.PericardiumTr ivial pericardial effusion present. No indication of cardiac tamponade.Study DetailsA complete echocardiogram was performed using 2D, color flow Doppler and spectral Doppler. 5 mL of Lumason ultrasound enhancing agent used.Wall Scoring BaselineScore Index: 1.29The following segments are akinetic: apex.The following segments are hypokinetic: mid anteroseptal, mid inferoseptal and apical septal.All other segments are normal. Akinesis of the apex, severe hypokinesis of the mid to apical inferoseptal wall, and apical anteroseptal wall. [facility] WITH [id number] 21:25:28 Test Item Value Reference Range Interpretation Comments WBC (test code = See_Comment [Automated 7255-2) message] The sy stem which generated this result transmitted reference range : 4.30 - 11.10 10*3/?L. The reference range was not used to interpret this result as normal/abnormal . RBC (test code = See_Comment L [Automated 679-8) message] The sy stem which generated this result transmitted reference range : 3.93 - 5.25 10*6/?L. The reference range was not used to interpret this result as normal/abnormal . HGB (test code = 12.2 g/dL 11.6-15.0 718-7) HCT (test code = 35.2 % 35.7-45.2 L 4544-3) MCV (test code = 91.2 fL 80.6-95.5 787-2) MCH (test code = 31.6 pg 25.9-32.8 785-6) MCHC (test code = 34.7 g/dL 31.6-35.1 786-4) RDW-SD (test code = 42.7 fL 39.0-49.9 48358-1) RDW-CV (test code = 13.1 % 12.0-15.5 788-0) PLT (test code = See_Comment [Automated 777-3) message] The sy stem which generated this result transmitted reference range : 166 - 358 10*3/ ?L. The reference r stan was not used to interpret this result as normal/abnormal . MPV (test code = 10.3 fL 9.5-12.9 47132-1) NRBC/100 WBC (test See_Comment [Automat ed code = 6387185502) message] The system which generated this result transmitted reference range : 0.0 - 10.0 /100 WBCs. The refer ence range was not u sed to interpret th is result as normal/abnormal . NRBC x10^3 (test code See_Comment [Auto mated = 8372502094) message] The s ystem which generated this result transmitted reference range : 10*3/?L. The reference range was not used to interpret this result as normal/abnormal . GRAN MAT (NEUT) % 85.2 % (test code = 770-8) IMM GRAN % (test code 0.40 % = 4554430180) LYMPH % (test code = 7.7 % 736-9) MONO % (test code = 5.3 % 5905-5) EOS % (test code = 1.0 % 713-8) BASO % (test code = 0.4 % 706-2) GRAN MAT x10^3(ANC) 6.53 10*3/uL 1.88-7.09 (test code = 7170245334) IMM GRAN x10^3 (test 0.03 10*3/uL 0.00-0.06 code = 4223796929) LYMPH x10^3 (test code 0.59 10*3/uL 1.32-3.29 L = 731-0) MONO x10^3 (test code 0.41 10*3/uL 0.33-0.92 = 742-7) EOS x10^3 (test code = 0.08 10*3/uL 0.03-0.39 711-2) BASO x10^3 (test code 0.03 10*3/uL 0.01-0.07 = 704-7) Lab Interpretation Abnormal (test code = 91656-5) [facility] WITH [id number] 21:25:28 Test Item Value Reference Range Interpretation Comments WBC (test code = See_Comment [Automated 5690-2) message] The sy stem which generated this result transmitted reference range : 4.30 - 11.10 10*3/?L. The reference range was not used to interpret this result as normal/abnormal . RBC (test code = See_Comment L [Automated 809-8) message] The sy stem which generated this result transmitted reference range : 3.93 - 5.25 10*6/?L. The reference range was not used to interpret this result as normal/abnormal . HGB (test code = 12.2 g/dL 11.6-15.0 718-7) HCT (test code = 35.2 % 35.7-45.2 L 4544-3) MCV (test code = 91.2 fL 80.6-95.5 787-2) MCH (test code = 31.6 pg 25.9-32.8 785-6) MCHC (test code = 34.7 g/dL 31.6-35.1 786-4) RDW-SD (test code = 42.7 fL 39.0-49.9 94499-5) RDW-CV (test code = 13.1 % 12.0-15.5 788-0) PLT (test code = See_Comment [Automated 777-3) message] The sy stem which generated this result transmitted reference range : 166 - 358 10*3/ ?L. The reference r stan was not used to interpret this result as normal/abnormal . MPV (test code = 10.3 fL 9.5-12.9 38120-5) NRBC/100 WBC (test See_Comment [Automat ed code = 5363155577) message] The system which generated this result transmitted reference range : 0.0 - 10.0 /100 WBCs. The refer ence range was not u sed to interpret th is result as normal/abnormal . NRBC x10^3 (test code See_Comment [Auto mated = 4124545952) message] The s ystem which generated this result transmitted reference range : 10*3/?L. The reference range was not used to interpret this result as normal/abnormal . GRAN MAT (NEUT) % 85.2 % (test code = 770-8) IMM GRAN % (test code 0.40 % = 3082411418) LYMPH % (test code = 7.7 % 736-9) MONO % (test code = 5.3 % 5905-5) EOS % (test code = 1.0 % 713-8) BASO % (test code = 0.4 % 706-2) GRAN MAT x10^3(ANC) 6.53 10*3/uL 1.88-7.09 (test code = 8119983566) IMM GRAN x10^3 (test 0.03 10*3/uL 0.00-0.06 code = 1225953156) LYMPH x10^3 (test code 0.59 10*3/uL 1.32-3.29 L = 731-0) MONO x10^3 (test code 0.41 10*3/uL 0.33-0.92 = 742-7) EOS x10^3 (test code = 0.08 10*3/uL 0.03-0.39 711-2) BASO x10^3 (test code 0.03 10*3/uL 0.01-0.07 = 704-7) Lab Interpretation Abnormal (test code = 90241-6) [facility] / [id number] 20:16:54 Test Item Value Reference Range Interpretation Comments PROTIME PATIENT (test See_Comment [Auto mated message] code = 5964-2) The system wh ich generated this result transmitted ref erence range: 12.0 - 1 4.7 Seconds. The re ference range was not u sed to interpret this result as normal/abnor mal. INR (test code = 6301-6) Nor mal INR <1.1; Warfarin Therap eutic range 2.0 to 3. 0 or 2.5 to 3.5, dep ending upon the indica tions. Lab Interpretation (test Normal code = 56449-2) [facility] / [id number] 20:16:54 Test Item Value Reference Range Interpretation Comments PROTIME PATIENT (test See_Comment [Auto mated message] code = 5964-2) The system wh ich generated this result transmitted ref erence range: 12.0 - 1 4.7 Seconds. The re ference range was not u sed to interpret this result as normal/abnor mal. INR (test code = 6301-6) Nor mal INR <1.1; Warfarin Therap eutic range 2.0 to 3. 0 or 2.5 to 3.5, dep ending upon the indica tions. Lab Interpretation (test Normal code = 05009-6) [facility] [id number] 19:29:43 Test Item Value Reference Interpretation Comments Range TROPONIN I (test 0.016 ng/mL See_Comment [Automated code = 9256077204) message] The system which generated this result transmitted reference range : <=0.034. The reference range was not used to interpret this result as normal/abnormal . YIFAN (test code = Reference (Normal) YIFAN) Range (defined by the 99th percentile reference limit): <= 0.034 ng/mL Note: Cardiac troponin begins to rise 3-4 hours after the onset of ischemia. Repeat in 4-6 hours if the sample was drawn within 3-4 hours of the onset of the symptom and found normal. Diagnosis of myocardial injury is made with acute changes in cTn concentrations with at least one serial sample above the 99th percentile upper reference limit (URL), taken together with the patient's clinical presentation. Biotin has been reported to cause a negative bias, interpret results relative to patient's use of biotin. Lab Interpretation Normal (test code = 36455-6) [facility] [id number] 19:29:43 Test Item Value Reference Interpretation Comments Range TROPONIN I (test 0.016 ng/mL See_Comment [Automated code = 0996761998) message] The system which generated this result transmitted reference range : <=0.034. The reference range was not used to interpret this result as normal/abnormal . YIFAN (test code = Reference (Normal) YIFAN) Range (defined by the 99th percentile reference limit): <= 0.034 ng/mL Note: Cardiac troponin begins to rise 3-4 hours after the onset of ischemia. Repeat in 4-6 hours if the sample was drawn within 3-4 hours of the onset of the symptom and found normal. Diagnosis of myocardial injury is made with acute changes in cTn concentrations with at least one serial sample above the 99th percentile upper reference limit (URL), taken together with the patient's clinical presentation. Biotin has been reported to cause a negative bias, interpret results relative to patient's use of biotin. Lab Interpretation Normal (test code = 55708-9) [facility] [id number] 19:28:46 Test Item Value Reference Range Interpretation Comments APTT Patient (test See_Comment [Automat ed code = 3173-2) message] The system which generated this result transmitted reference range : 23 - 38 Seconds . The reference range was not used to interpr et this result as normal/abnormal . YIFAN (test code = YIFAN) The [facility] patient population mean normal value for aPTT is 30 seconds. Lab Interpretation Normal (test code = 49405-6) [facility] [id number] 19:28:46 Test Item Value Reference Range Interpretation Comments APTT Patient (test See_Comment [Automat ed code = 3173-2) message] The system which generated this result transmitted reference range : 23 - 38 Seconds . The reference range was not used to interpr et this result as normal/abnormal . YIFAN (test code = YIFAN) The [facility] patient population mean normal value for aPTT is 30 seconds. Lab Interpretation Normal (test code = 09227-9) [facility]AL [id number] 19:26:24 Test Item Value Reference Range Interpretation Comments NT-proBNP (test code 560 pg/mL See_Comment H [Autom ated = 6771878102) message] The system which generated this result transmitted reference range : <=125. The reference range was not used to interpret this result as normal/abnormal . YIFAN (test code = YIFAN) Biotin has been reported to cause a negative bias, interpret results relative to patient's use of biotin. Lab Interpretation Abnormal (test code = 64838-3) [facility] WNI-[id number] 19:26:24 Test Item Value Reference Range Interpretation Comments NT-proBNP (test code 560 pg/mL See_Comment H [Autom ated = 4005221322) message] The system which generated this result transmitted reference range : <=125. The reference range was not used to interpret this result as normal/abnormal . YIFAN (test code = YIFAN) Biotin has been reported to cause a negative bias, interpret results relative to patient's use of biotin. Lab Interpretation Abnormal (test code = 20420-1) [facility]2022-12-13 19:18:22 Test Item Value Reference Range Interpretation Comments MAGNESIUM (test code = 5506245134) 1.6 mg/dL 1.7-2.4 L Lab Interpretation (test code = Abnormal 99169-0) [facility] Test Item Value Reference Range Interpretation Comments MAGNESIUM (test code = 0972012090) 1.6 mg/dL 1.7-2.4 L Lab Interpretation (test code = Abnormal 45004-7) [facility]. METABOLIC PANEL ([id number])2022-10-13 19:17:41 Test Item Value Reference Range Interpretation Comments NA (test code = 137 mmol/L 135-145 8902518371) K (test code = 4.6 mmol/L 3.5-5.0 5577585262) CL (test code = 102 mmol/L 98-108 5157996098) CO2 TOTAL (test code = 26 mmol/L 23-31 6322332882) AGAP (test code = 2-16 2889162601) BUN (test code = 29 mg/dL 7-23 H 0479650880) GLUCOSE (test code = 161 mg/dL 70-110 H 5353031281) CREATININE (test code = 1.32 mg/dL 0.50-1.04 H 4921611476) TOTAL BILI (test code = 0.7 mg/dL 0.1-1.5 2298408150) CALCIUM (test code = 9.2 mg/dL 8.6-10.6 1446667265) T PROTEIN (test code = 7.2 g/dL 6.3-8.2 8002956606) ALBUMIN (test code = 4.3 g/dL 3.5-5.0 0576171915) ALK PHOS (test code = 52 U/L 34-122 0498391866) ALTv (test code = 29 U/L 5-35 1742-6) AST(SGOT) (test code = 35 U/L 13-40 1572391723) eGFR (test code = mL/min/1.73m2 3553187012) YIFAN (test code = YIFAN) Association of Glomerular Filtration Rate (GFR) and Staging of Kidney Disease* + --+ --+ ------+| GFR (mL/min/1.73 m2) ?| With Kidney Damage ?| ?Without Kidney Damage+ --------+ --------+ +| ?>90 ?| ?Stage one ?| ? Normal ?+ ---+ ---+ -------+| ?60-89 ?| ?Stage two ?| ? Decreased GFR ? + --+ --+ ------+| ?30-59 ?| ?Stage three ?| ? Stage three ? + --+ --+ ------+| ?15-29 ?| ?Stage four ? | ? Stage four ?+ ---+ ---+ -------+| ?<15 (or dialysis) ? ?| ?Stage five ? | ? Stage five ?+ ---+ ---+ -------+ *Each stage assumes the associated GFR level has been in effect for at least three months. ?Stages 1 to 5, with or without kidney disease, indicate chronic kidney disease. Notes: Determination of stages one and two (with eGFR >59mL/min/1.73 m2) requires estimation of kidney damage for at least three months as defined by structural or functional abnormalities of the kidney, manifested by either:Pathological abnormalities or Markers of kidney damage (including abnormalities in the composition of the blood or urine or abnormalities in imaging tests). Lab Interpretation Abnormal (test code = 34608-0) [facility]2022-[facility]-13 19:17:41 Test Item Value Reference Range Interpretation Comments LIPASE (test code = 0350764153) 121 U/L 0-220 Lab Interpretation (test code = Normal 80054-4) [facility]. METABOLIC PANEL (46294)2022-10-13 19:17:41 Test Item Value Reference Range Interpretation Comments NA (test code = 137 mmol/L 135-145 3661821955) K (test code = 4.6 mmol/L 3.5-5.0 3940696298) CL (test code = 102 mmol/L 98-108 7543065738) CO2 TOTAL (test code = 26 mmol/L 23-31 5561736844) AGAP (test code = 2-16 7147701983) BUN (test code = 29 mg/dL 7-23 H 8263422627) GLUCOSE (test code = 161 mg/dL 70-110 H 6908341655) CREATININE (test code = 1.32 mg/dL 0.50-1.04 H 2256887760) TOTAL BILI (test code = 0.7 mg/dL 0.1-1.3 9318399873) CALCIUM (test code = 9.2 mg/dL 8.6-10.6 7681487171) T PROTEIN (test code = 7.2 g/dL 6.3-8.2 7753165332) ALBUMIN (test code = 4.3 g/dL 3.5-5.0 8025272568) ALK PHOS (test code = 52 U/L 34-122 8325201653) ALTv (test code = 29 U/L 5-35 1742-6) AST(SGOT) (test code = 35 U/L 13-40 5827208228) eGFR (test code = mL/min/1.73m2 4205716523) YIFAN (test code = YIFAN) Association of Glomerular Filtration Rate (GFR) and Staging of Kidney Disease* + --+ --+ ------+| GFR (mL/min/1.73 m2) ?| With Kidney Damage ?| ?Without Kidney Damage+ --------+ --------+ +| ?>90 ?| ?Stage one ?| ? Normal ?+ ---+ ---+ -------+| ?60-89 ?| ?Stage two ?| ? Decreased GFR ? + --+ --+ ------+| ?30-59 ?| ?Stage three ?| ? Stage three ? + --+ --+ ------+| ?15-29 ?| ?Stage four ? | ? Stage four ?+ ---+ ---+ -------+| ?<15 (or dialysis) ? ?| ?Stage five ? | ? Stage five ?+ ---+ ---+ -------+ *Each stage assumes the associated GFR level has been in effect for at least three months. ?Stages 1 to 5, with or without kidney disease, indicate chronic kidney disease. Notes: Determination of stages one and two (with eGFR >59mL/min/1.73 m2) requires estimation of kidney damage for at least three months as defined by structural or functional abnormalities of the kidney, manifested by either:Pathological abnormalities or Markers of kidney damage (including abnormalities in the composition of the blood or urine or abnormalities in imaging tests). Lab Interpretation Abnormal (test code = 71601-3) [facility]2022-[facility]-13 19:17:41 Test Item Value Reference Range Interpretation Comments LIPASE (test code = 8510149725) 121 U/L 0-220 Lab Interpretation (test code = Normal 75034-4) [facility] WITH [id number] 19:05:40 Test Item Value Reference Range Interpretation Comments WBC (test code = See_Comment [Automated 2290-2) message] The sy stem which generated this result transmitted reference range : 4.30 - 11.10 10*3/?L. The reference range was not used to interpret this result as normal/abnormal . RBC (test code = See_Comment L [Automated 549-8) message] The sy stem which generated this result transmitted reference range : 3.93 - 5.25 10*6/?L. The reference range was not used to interpret this result as normal/abnormal . HGB (test code = 11.8 g/dL 11.6-15.0 718-7) HCT (test code = 35.0 % 35.7-45.2 L 4544-3) MCV (test code = 94.9 fL 80.6-95.5 787-2) MCH (test code = 32.0 pg 25.9-32.8 785-6) MCHC (test code = 33.7 g/dL 31.6-35.1 786-4) RDW-SD (test code = 44.6 fL 39.0-49.9 14065-4) RDW-CV (test code = 13.0 % 12.0-15.5 788-0) PLT (test code = See_Comment [Automated 777-3) message] The sy stem which generated this result transmitted reference range : 166 - 358 10*3/ ?L. The reference r stan was not used to interpret this result as normal/abnormal . MPV (test code = 10.1 fL 9.5-12.9 72123-9) NRBC/100 WBC (test See_Comment [Automat ed code = 9973060068) message] The system which generated this result transmitted reference range : 0.0 - 10.0 /100 WBCs. The refer ence range was not u sed to interpret th is result as normal/abnormal . NRBC x10^3 (test code See_Comment [Auto mated = 7720099380) message] The s ystem which generated this result transmitted reference range : 10*3/?L. The reference range was not used to interpret this result as normal/abnormal . GRAN MAT (NEUT) % 74.7 % (test code = 770-8) IMM GRAN % (test code 0.50 % = 6877592016) LYMPH % (test code = 13.1 % 736-9) MONO % (test code = 7.4 % 5905-5) EOS % (test code = 3.8 % 713-8) BASO % (test code = 0.5 % 706-2) GRAN MAT x10^3(ANC) 4.56 10*3/uL 1.88-7.09 (test code = 6694659573) IMM GRAN x10^3 (test 0.03 10*3/uL 0.00-0.06 code = 4163625522) LYMPH x10^3 (test code 0.80 10*3/uL 1.32-3.29 L = 731-0) MONO x10^3 (test code 0.45 10*3/uL 0.33-0.92 = 742-7) EOS x10^3 (test code = 0.23 10*3/uL 0.03-0.39 711-2) BASO x10^3 (test code 0.03 10*3/uL 0.01-0.07 = 704-7) Lab Interpretation Abnormal (test code = 65970-5) [facility] WITH [id number] 19:05:40 Test Item Value Reference Range Interpretation Comments WBC (test code = See_Comment [Automated 6690-2) message] The sy stem which generated this result transmitted reference range : 4.30 - 11.10 10*3/?L. The reference range was not used to interpret this result as normal/abnormal . RBC (test code = See_Comment L [Automated 789-8) message] The sy stem which generated this result transmitted reference range : 3.93 - 5.25 10*6/?L. The reference range was not used to interpret this result as normal/abnormal . HGB (test code = 11.8 g/dL 11.6-15.0 718-7) HCT (test code = 35.0 % 35.7-45.2 L 4544-3) MCV (test code = 94.9 fL 80.6-95.5 787-2) MCH (test code = 32.0 pg 25.9-32.8 785-6) MCHC (test code = 33.7 g/dL 31.6-35.1 786-4) RDW-SD (test code = 44.6 fL 39.0-49.9 64762-7) RDW-CV (test code = 13.0 % 12.0-15.5 788-0) PLT (test code = See_Comment [Automated 777-3) message] The sy stem which generated this result transmitted reference range : 166 - 358 10*3/ ?L. The reference r stan was not used to interpret this result as normal/abnormal . MPV (test code = 10.1 fL 9.5-12.9 03772-2) NRBC/100 WBC (test See_Comment [Automat ed code = 2331936421) message] The system which generated this result transmitted reference range : 0.0 - 10.0 /100 WBCs. The refer ence range was not u sed to interpret th is result as normal/abnormal . NRBC x10^3 (test code See_Comment [Auto mated = 5811347470) message] The s ystem which generated this result transmitted reference range : 10*3/?L. The reference range was not used to interpret this result as normal/abnormal . GRAN MAT (NEUT) % 74.7 % (test code = 770-8) IMM GRAN % (test code 0.50 % = 7307600218) LYMPH % (test code = 13.1 % 736-9) MONO % (test code = 7.4 % 5905-5) EOS % (test code = 3.8 % 713-8) BASO % (test code = 0.5 % 706-2) GRAN MAT x10^3(ANC) 4.56 10*3/uL 1.88-7.09 (test code = 1487149227) IMM GRAN x10^3 (test 0.03 10*3/uL 0.00-0.06 code = 2401565602) LYMPH x10^3 (test code 0.80 10*3/uL 1.32-3.29 L = 731-0) MONO x10^3 (test code 0.45 10*3/uL 0.33-0.92 = 742-7) EOS x10^3 (test code = 0.23 10*3/uL 0.03-0.39 711-2) BASO x10^3 (test code 0.03 10*3/uL 0.01-0.07 = 704-7) Lab Interpretation Abnormal (test code = 48470-5) [facility]-CoV-2 (COVID-19) RNA [Presence] in Respiratory specimen by AURY with probe nvevusqio6257-29-42 13:51:02 Test Item Value Reference Range Interpretation Comments SARS-CoV-2 (COVID-19) RNA Not detected Not-Detected [Presence] in Respiratory specimen by AURY with probe detection (test code = 47754-6) Whether patient is employed in a healthcare setting (test code = 68082-4) Whether the patient has symptoms related to condition of interest (test code = 35901-6) Patient was hospitalized because of this condition (test code = 28334-5) Whether the patient was admitted to intensive care unit (ICU) for condition of interest (test code = 82616-0) Whether patient resides in a congregate care setting (test code = 75276-1) [facility]- XR FLUORO [id number] 12:14:00 [facility] 1945 Sex: F Patient Name: SHANTELLE BUSTILLO Unit No: [id number] EXAMS: CPT CODE: [id number] XR FLUORO NDL 82273Sjmgatlzyojicerr guided left knee aspiration FINDINGS: After informed consent was obtained a 22-gauge needle is inserted into the left knee under fluoroscopic guidance using sterile technique. 7 cc ofthin yellow fluid was aspirated. This is sent to the lab for analysis. The patient tolerated the proc edure well. 3 seconds of fluoroscopy time was used on this exam. IMPRESSION: Fluoroscopically guidedleft knee aspiration. at 1214 Reported and signed by: Abisai Styles M.D. CC: Karlos Moreno MD Technologist: Michelle AndersRT.(R) Transcribed D/ (1214) t.JESSENIA.[facility] NAME: SHANTELLE BUSTILLO [address] PHYS: Karlos Galindo MD : 1945 AGE: 75 SEX: F [place], [place] [address] LOC: Y.RAD PHONE #: [phone] EXAM DATE: 08/04/2021 STATUS: DEP [place] #: [phone] RAD #: D/C DT PAGE 1 Signed Report Patient Name: SHANTELLE BUSTILLO Unit No: [id number] EXAMS: CPT CODE: [id number] XR FLUORO NDL 61129 (Continued) Orig Print D/T: S: 08/05/2021 (1217) [facility] NAME: SHANTELLE BUSTILLO [address] [facility] PHYS: Karlos Galindo MD : 1945 AGE: 75 SEX: F [place], [place] [address] LOC: Y.RAD PHONE #: [phone] EXAM DATE: 08/04/2021 STATUS: DEP CLI FAX #: [phone] RAD #: D/C DT PAGE 2 [address]OVIAL FLD CELL CT/[id number] 19:19:00 Test Item Value Reference Range Interpretation Comments SYNOVIAL FLD XANTHOCHROMIC LT. YELLOW A COLOR (test code = COLSY) SYNOVIAL FLD CLOUDY CLEAR A APPEARANCE (test code = APPSY) SYNOVIAL FLD 2 mL VOLUME (test code = VOLSY) SYNOVIAL FLD WBC 254.000 /MM3 0-200 H (test code = WBCSY) SYNOVIAL FLD RBC 06451.000 /mm3 0-2 H NOTE: An automated (test code = method is now b eing RBCSY) used to determinesynovi al fluid WBC and RBC cou nts. The differential wi llstill be performed ma nually. SYNOVIAL FLD POLY 42 % 0-25 H (test code = POLYSY) SYNOVIAL FLD 38 % 0-78 N LYMPHOCYTE (test code = LYMPHSY) SYNOVIAL FLD 16 % 0-71 N MONOCYTE (test code = MONOSY) SYNOVIAL FLD 4 % 0-3 H MACROPHAGE (test code = MACSY) SPECIMEN COMMENT: ASP.LEFT KNEEFungus yownjws6411-16-28 05:15:40 Test Item Value Reference Range Interpretation Comments Fungus culture No growth Specimen isolate (test after 4 weeks InformationSp ecimen code = 1441) of Source: TissueS pecimen incubation. Site: Knee: #4 Left Knee Tissue Culture [facility] edsxetv2840-28-58 16:37:06 Test Item Value Reference Interpretation Comments Range Joint fluid Streptococcus A Specimen culture isolate group BFew, InformationS pecimen (test code = 1634) grouping to Source: J oint follow FluidSpecimen S ite: Knee: #1 Left K nee Fluid Culture - Superficial Lab Interpretation Abnormal (test code = 81398-4) [facility] [id number] 16:34:50 Test Item Value Reference Range Interpretation Comments Fungus smear No fungi Specimen (test code = observed. InformationSpec imen Source: 1443) TissueSpecimen Site: Knee: #3 Left Knee Ti ssue Culture [facility]Gram [id number] 16:34:50Gram stain isolateOccasional WBC'sNo organisms seen Comment: Specimen InformationSpecimen Source: Tis sueSpecimen Site: Knee: #3 Left Knee Tissue Culture [facility]bergAnaerobic gyfbjvc0446-06-69 11:54:43 Test Item Value Reference Range Interpretation Comments Anaerobic No anaerobic Specimen culture isolate organisms InformationS pecimen (test code = isolated. Source: TissueS pecimen 552) Site: Knee: #4 Left Knee Tissue Culture [facility] uguoyif2721-95-19 12:42:15 Test Item Value Reference Interpretation Comments Range Aerobic culture Streptococcus A Specimen isolate (test code group BFew, Informati onSpecimen = 498) grouping to Source: TissueS pecimen follow Site: Knee: #4 Left Knee Tissue Cul ture Lab Interpretation Abnormal (test code = 21648-3) [facility] HospitalPrepar RBC, 1 [id number] 16:20:00 Test Item Value Reference Range Interpretation Comments Product name (test code Red Blood Cells -1, = 25) Leukored Unit number (test code = [id number] 4081423) Product code (test code L6304E99 = 3092) Dispense status (test Transfused code = 24) Blood expiration date (test code = 302) Blood type code (test code = 308) Blood type (test code = A POSITIVE 1314) Compatibility (test code Compatible = 6400) [facility] HospitalXR Picc Chest Domzhytk2783-09-64 00:40:09EXAMINATION: XR PICC CHEST PORTABLE CLINICAL HISTORY: M00.9 Pyogenic arthritis unspecified, long-term antibiotics COMPARISON: None. IMPRESSION: 1.There is a right-sided PICC line which terminates over the cavoatrial region in satisfactory position. 2.The cardiomediastinal silhouette is enlarged. The central vasculature is normal. Thoracic aorta is slightly tortuous. 3.There are atelectatic changes within the lung bases. There is some linear atelectasis or scarring in the left perihilar region. 4.Degenerative changes in the spine. There are some surgical clips over the left hemithorax. [facility]-[id number] Interface, Radiology Results 05/28/2021 7:43 PM CDT EXAMINATION: XR PICC CHEST PORTABLECLINICAL HISTORY: M00.9 Pyogenic arthritis unspecified, long-term antibioticsCOMPARISON: None.IMPRESSION:1.There is a right-sided PICC line which terminates over the cavoatrial region in satisfactory position.2.The cardiomediastinal silhouette is enlarged. The central vasculature is normal. Thoracic aorta is slightly tortuous.3.There are atelectatic changes within the lung bases. There is some linear atelectasis or scarring in the left perihilar region.4.Degenerative changes in the spine. There are some surgical clips over the left hemithorax.[facility]-[id number] [facility] jcvgkifsz0848-60-46 23:23:23Shasha Kaur RN 05/28/2021 6:46 PMPICC insertion Date/Time: 05/28/2021 6:23 PMPerformed by: Shravan Meadows, RNAuthorized by: Lupillo Gastelum MD Consent: Consent obtained: Verbal and written Consentgiven by: Patient Risks discussed: Arterial puncture, incorrect placement, nerve damage, infection, bleeding, superficial thrombus and deep vein thrombus Alternatives discussed: Alternative treatment, delayed treatment and no treatmentUniversal protocol: Procedure explained and questions answered to pa tient or proxy's satisfaction: yes Relevant documents present and verified: yes Test results available and properly labeled: yes Imaging studies available: yes Required blood products, implants, devices, and special equipment available: yes Site/side marked: yes Immediately prior to procedure, a time out was called: yes Patient identity confirmed: Verbally with patient, hospital-assigned identification number and arm bandPre-procedure details: Hand hygiene: Hand hygiene performed prior to insertion Sterile barrier technique: All elements of maximal sterile technique followed Skin preparation: ChloraPrep Skin preparation agent: Completely dried prior to procedure Anesthesia (see MAR for exact dosage s): Anesthesia method: Local infiltration Local anesthetic: Lidocaine 1% w/o epi Route administered:SubcutaneousPICC Line Placement Details: Patient position: Flat Vessel Size (mm): 5 Indication: Poorvenous access and known chcf IV therapy Location: Right basilic Device Type: Non-valved Catheter Lumens: Double lumen Catheter size: 5 Fr Catheter to vein ratio: 34PICC Characteristics: Catheter Brand: [employer] PICC External Catheter Length (cm): 1 Internal Catheter Length (cm): 42 Total Catheter Length (cm): 43 Catheter Lot Number: [id number] Catheter Expiration Date: 1Procedure details: Landmarks identified: yes Ultrasound guidance: yes Sterile ultrasound techniques: Sterile gel and sterile probe covers were used Number of attempts: 1 Number of PICC kits used during procedure: 2 Extra guide wire required?: No Purpose of procedure: PICC Placement Successful PICC Placement: yes Patency/Placement: Flushes without difficulty, flushed with 10 mL normal saline, x-ray placement verified and ultrasound placement verified Dressing/Securement: Antimicrobial dressing dry and intact, antimicrobial dressing applied and catheter securement device Blood Loss Amount: Less than 20 mLPost-procedure details: Post-procedure: Dressing applied Tip placement confirmed by: X-Ray Patient tolerance of procedure: Tolerated well, no immediate complicationsSurgical pathology [id number] 21:08:16 Test Item Value Reference Range Interpretation Comments Case number (test code = [id number]) Surgical pathology See link below for report (test code = PDF Lab Report 2255) Result status (test code This is Final Report = [id number]) for [id number] [facility]XR K[facility] 1 Or 2 Vw Zaaz8264-53-56 23:32:01EXAMINATION: XR KNEE 1 OR 2 VW LEFT CLINICAL HISTORY: total knee arthoplasty COMPARISON: Knee radiogr aphs 02/13/2021 IMPRESSION:Interval explantation of a left total knee arthroplasty with placement of antibiotic spacers and femoral-tibial intramedullary dowels. Post surgical soft tissue gas/swelling about the knee as well as knee effusion and overlying metallic clips. [id number] Interface, Radiology Results - 05/27/2021 6:35 PM CDT EXAMINATION: XR KNEE 1 OR 2 VW LEFTCLINICAL HISTORY: total knee arthoplastyCOMPARISON: Knee radiographs 02/13/2021IMPRESSION:Interval explantation of a left total knee arthroplasty with placement ofantibiotic spacers and femoral-tibial intramedullary dowels. Post surgical soft tissue gas/swelling about the knee as well as knee effusion and overlying metallic clips.[id number] wwvrhsl1564-31-95 22:31:36 Test Item Value Reference Range Interpretation Comments POC glucose (test code 171 mg/dL 65-99 H Opera tor Name: Heena = 65735-8) Courtney Beverley Hernandez D: [id number] able: COUNTS INCLUDE [facility] BEDS AT THE [facility] Notified fraud representative Interpretation Abnormal (test code = 06549-2) [facility] [place]2021-07-27 19:07:00Fili Redding CRNA 05/27/2021 2:24 PMAirway Date/Time: 05/27/2021 2:07 PM Location: OR Performed by: KEVIN/AAAnesthesiologist: Maurisio Navarro MDResilauryt/KEVIN/AA: Fili Redding CRNAAuthorized by: Maurisio Navarro MD Urgency: ElectiveDifficult Airway: No Preoxygenated with 100% O2: Yes Mask Ventilation: Easy maskFinal Airway Type: Endotracheal airwayFinal Endotracheal Airway: ETTCuffed: Yes Technique Used: Direct laryngoscopyDevices/Methods Used in Placement: Intubating styletInsertion Site: OralBlade Type: MacintoshLaryngoscope Blade/Videolaryngoscope Blade Size: 3ETT Size (mm): 7.0Measured from: LipsETT to Lips (cm): 22Placement Verified by: CO2 detection, direct visualization and equal breath sounds Laryngoscopic view: Grade I - full view of glottisNumber of Attemptsat Approach: 1 Atraumatic intubation. Lips, teeth and tongue as per preopABO and Rh svplnysomyaj0677-74-40 11:39:00 Test Item Value Reference Range Interpretation Comments ABO grouping (test code = 883-9) A Rh type (test code = 41437-6) POS [facility]Type and wfytiv4068-93-40 11:32:00 Test Item Value Reference Range Interpretation Comments ABO grouping (test code = 883-9) A Rh type (test code = 73132-2) POS Antibody screen (gel) (test code = NEG 890-4) [facility] HospitalUrine qajjtuvadrv6893-89-69 17:54:00 Test Item Value Reference Range Interpretation Comments Eosinophils, urine (test code = NONE 56707-1) [facility] HospitalUrinalysis screen and microscopy, with reflex to culture 2021-05-26 13:02:09 Test Item Value Reference Range Interpretation Comments Specimen site (test Random void code = 5849561) Color, UA (test code Straw = 5778-6) Appearance, UA (test Clear code = 5767-9) Specific gravity, UA 1.001-1.035 (test code = 5811-5) pH, UA (test code = 5.0-8.5 5803-2) Protein, UA (test Negative Negative code = 06714-8) Glucose, UA (test Negative Negative code = 52799-6) Ketones, UA (test Negative Negative code = 2514-8) Bilirubin, UA (test Negative Negative code = 5770-3) Blood, UA (test code Negative Negative = 5794-3) Nitrite, UA (test Negative Negative code = 5802-4) Urobilinogen, UA <2.0 <2.0 (test code = 61177-2) Leukocyte esterase, Negative Negative UA (test code = 5799-2) Epithelial cells, UA <1 See_Comment [Autom ated message] (test code = 5787-7) The sys tem which generated this result transmitted ref erence range: /HPF. Th e reference range was not used to int erpret this result as normal/abnormal . Round epithelial <1 See_Comment [Automated message] cells, UA (test code The sys tem which = 01029-0) generated this result transmitted ref erence range: 0 - 1 /H PF. The reference r stan was not used to interpret this result as normal/abnor mal. WBC, UA (test code = <1 See_Comment [Autom ated message] 5821-4) The system [employer] generated this result transmitted ref erence range: 0 - 4 /H PF. The reference r stan was not used to interpret this result as normal/abnor mal. RBC, UA (test code = None seen See_Comment [Autom ated message] 94650-5) The system [employer] generated this result transmitted ref erence range: 0 - 5 /H PF. The reference r stan was not used to interpret this result as normal/abnor mal. Bacteria, UA (test None seen None seen code = 93032-9) Yeast, UA (test code None seen = 36340-7) Yeast with None seen pseudohyphae, UA (test code = 27556-9) [facility] [id number] 11:58:14 Test Item Value Reference Range Interpretation Comments Urine culture (test SEE COMMENT Bacteriu les screen code = 1877452) negative. [facility] [id number] 11:46:09EXAMINATION: US RENAL CLINICAL HISTORY: 75 years Female Renal failure acute COMPARISON: None. FINDINGS: Right kidney: The right kidney measures 10.7 x 4.8 x 5.0 cm.There is normal echogenicity. There is a 2 cm cystThere are no calcifications.There is no hydronephrosis Left kidney:The left kidney measures 9.6 x 5.9 x 6.0 cm.There is normal echogenicity. There are no focal masses.There are no calcifications.There is no hydronephrosis The urinary bladder is unremarkable. IMPRESSION: 2 cm cyst in the right kidney [facility], Radiology Results 05/26/2021 6:49 AM CDT EXAMINATION: US RENALCLINICAL HISTORY: 75 years Female Renal failure acuteCOMPARISON: None.FINDINGS: Right kidney:The right kidney measures 10.7 x 4.8 x 5.0 cm.There is normal echogenicity. There is a 2 cm cystThere are no calcifications.There is no hydronephrosisLeft kidney:The left kidney measures 9.6 x 5.9 x 6.0 cm.There is normal echogenicity. There are no focalmasses.There are no calcifications.There is no hydronephrosisThe urinary bladder is unremarkable.IMPRESSION: 2 cm cyst in the right kidneyTexas [facility] HospitalECG 12 [id number] 03:57:00 Test Item Value Reference Range Interpretation Comments Ventricular rate (test code = 253) Atrial rate (test code = 255) NV interval (test code = 266) QRSD interval (test code = 260) QT interval (test code = 264) QTC interval (test code = 265) P axis 1 (test code = 267) QRS axis 1 (test code = 268) T wave axis (test code = 270) EKG impression (test Normal sinus code = 273) rhythm-Normal ECG-In automated comparison with ECG of 15-NOV-2019 17:09,-No significant change was found- [place] [facility] 25-HYDROXY (TOTAL)2021-05-14 10:03:00 Test Item Value Reference Range Interpretation Comments VITAMIN D 45.5 ng/mL 30.0-100.0 Vitamin D defic iency has 25-HYDROXY (TOTAL) been defi zhao by the (test code = Herman ofMed icine and VITD25) an Endocrine [facility] practice guidel ine as alevel of serum 25-OH vitamin D less than 20 ng/mL (1,2).The Endocrine Society went on to further define vitamin Dinsufficiency as a level between 21 and 29 ng/mL (2).1. IOM (Ins titute of Medicine). 2010 . Dietary reference intak es for calcium and D. [place]: [employer] .2. Sunil MF, Mary NC, Jessi hernandez BUENO, et al. Evaluation, treatment, and prevention of vitamin D de ficiency: an Endocrine [facility] clinical practi ce guideline. JCEM . 2010; 96(7):1911-30.P erformed At: [facility] [address] [place], [place] [id number] Kyle L MD Ph:[phone] COMPREHENSIVE METABOLIC [id number] 20:16:00 Test Item Value Reference Range Interpretation Comments SODIUM (test code = 137 mmol/L 136-145 N NA) POTASSIUM (test code = 5.0 mmol/L 3.5-5.1 N K) CHLORIDE (test code = 101.0 mmol/L 98-107 N CL) CARBON DIOXIDE (test 25.0 mmol/L 21-32 N code = CO2) GLUCOSE (test code = 100 mg/dL 70-110 N GLU) BLOOD UREA NITROGEN 45 mg/dL 7-18 HH VERIFIED BY REPEAT (test code = BUN) ANALYSIS.C RITICAL VALUE [facility] & CONFIRMED? YESB Y Y.LAB.CD 2014RESULTS FAX ED TOT EH DOCTOR'S OFFICE GLOMERULAR FILTRATION 27.8 >60 Unit o f measure: RATE (test code = GFR) mL/mi n/1.73 g1Ecrmigryd Range:Healthy Adults >90 mL/min/1.73 m2 For Chronic Kidney Disease: Stage II Mild Decrease i n GFR 60-90 Stage III Moderate Decrea se in GFR 30-59 St age IV Severe Decre ase in GFR 15-29 St age V Kidney Failu re <15 CREATININE (test code 1.79 mg/dL 0.55-1.30 H = CREAT) TOTAL PROTEIN (test 7.5 g/dL 6.4-8.2 N code = PROT) ALBUMIN (test code = 3.2 g/dL 3.4-5.0 L ALB) GLOBULIN (test code = 4.3 g/dL 2.2-4.2 H GLOB) ALBUMIN/GLOBULIN RATIO 0.7 0.7-2.0 N (test code = A/G) CALCIUM (test code = 9.0 mg/dL 8.2-10.1 N CA) BILIRUBIN TOTAL (test 0.40 mg/dL 0.2-1.00 N code = BILT) SGOT/AST (test code = 17.0 U/L 15-37 N AST) SGPT/ALT (test code = 23.0 U/L 12-78 N Please note new ALT) normal range. ALKALINE PHOSPHATASE 75 U/L 46-116 N TOTAL (test code = ALKP) PROTHROMBIN [id number] 18:53:00 Test Item Value Reference Range Interpretation Comments PROTHROMBIN TIME 12.9 secs 10.1-12.5 H PATIENT (test code = PTP) INTERNATIONAL NORMAL 1.13 <2.0 RECOMME NDED THERAPEUTIC RATIO (test code = RANGE FOR ORAL INR) ANTICOAGULANTTR EATMENT: CONDITION INRPr ophylaxis of venous throm bosis in 2.0 - 3.0 high- risk medical or surg ical patientsTreatme nt of venous thrombos is 2.0 - 3.0Prevention o f embolism 2.0 - 3.0Prevention o f recurrent embol ism, or 3.0 - 4.5 patie nts with mechanical pros thetic intravascular v bell IS PATIENT ON ANTICOAGULANTS ? YLIST ANTICOAGULANT/ANTI PLT MEDICATION : AspirinHas Lab been notified if Patient is on Heparin Drip? NOIf Yes, order CBC, OCCULT BLOOD, PT every other day NTHROMBOPLASTIN TIME [id number] 18:53:00 Test Item Value Reference Range Interpretation Comments PTT ACTIVATED (test code = APTT) 32.3 secs 24.9-37.0 N IS PATIENT ON ANTICOAGULANTS ? YLIST ANTICOAGULANT/ANTI PLT MEDICATION : AspirinHas Lab been notified if Patient is on Heparin Drip? NOIf Yes, order CBC, OCCULT BLOOD, PT every other day NCBC W/AUTO [id number] 17:11:00 Test Item Value Reference Range Interpretation Comments WHITE BLOOD CELL (test code = WBC) 6.3 K/mm3 5.8-11.0 N RED BLOOD CELL (test code = RBC) 3.42 M/mm3 4.2-5.4 L HEMOGLOBIN (test code = HGB) 9.6 g/dL 12-16 L HEMATOCRIT (test code = HCT) 29.8 % 37-47 L MEAN CELL VOLUME (test code = MCV) 87 fL 80-98 N MEAN CELL HGB (test code = MCH) 28.1 pg 27-34 N MEAN CELL HGB CONCENTRATION (test 32.2 g/dL 30.8-34.1 N code = MCHC) RED CELL DISTRIBUTION WIDTH (test 14.6 % 11-16 N code = RDW) PLT (test code = PLT) 354 K/mm3 130-400 N MEAN PLATELET VOLUME (test code = 10.0 fL 8.9-12.1 N MPV) NEUTROPHIL % (test code = NT%) 75.7 % 45-70 H LYMPHOCYTE % (test code = LY%) 14.2 % 20-40 L MONOCYTE % (test code = MO%) 6.8 % 3-10 N EOSINOPHIL % (test code = EO%) 2.5 % 1-5 N BASOPHIL % (test code = BA%) 0.5 % 0.0-1.1 N NEUTROPHIL # (test code = NT#) 4.79 K/mm3 2.00-7.50 N LYMPHOCYTE # (test code = LY#) 0.90 K/mm3 1.50-4.00 L MONOCYTE # (test code = MO#) 0.43 K/mm3 0.2-0.8 N EOSINOPHIL # (test code = EO#) 0.16 K/mm3 0.04-0.4 N BASOPHIL # (test code = BA#) 0.03 K/mm3 0.02-0.10 N MANUAL DIFF REQUIRED (test code = NO MANUAL DIFF MDIFF) NUCLEATED RED BLOOD CELL (test 0 % 0-0 N code = NRBC) - XR FLUORO [id number] 16:05:00 [facility] 1945 Sex: F Patient Name: SHANTELLE BUSTILLO Unit No: [id number] EXAMS: CPT CODE: [id number] XR FLUORO NDL 98462 FLUOROSCOPICALLY GUIDED ASPIRATION OF THE LEFT KNEE COMMENT: After informed consent was obtained a needle was placedin the knee joint with fluoroscopic guidance. Its position was confirmed with an AP radiograph. 0.2 minutes of fluoroscopy time was utilized. 3 mL of bloody fluid was aspirated and sent for analysis. No immediate complications were encountered. at 1606 Reported and signed by: Rocky Rios MD CC: Everardo Schmidt MD Technologist: Michelle Anders RT.(R) Transcribed D/ (3608) t.DICKSONR.L [facility] NAME: SHANTELLE BUSTILLO [address] [facility] PHYS: Everardo Meek MD : 1945 AGE: 75 SEX: F [place], [place] [address] LOC: Y.RAD PHONE #: [phone] EXAM DATE: 04/15/2021 STATUS: REG CLI FAX #: [phone] RAD #: D/C DT PAGE 1 Signed Report Patient Name: SHANTELLE BUSTILLO Unit No: [id number] EXAMS: CPT CODE: [id number] XR FLUORO NDL 70986 (Continued) Orig Print D/T: S: 04/15/2021 (1608) [facility] NAME: SHANTELLE BUSTILLO [address] [place] [address] PHYS: JOSYSHANELL SchmidtEverardo MD : 1945 AGE: 75 SEX: F [place] [address] LOC: Y.RAD PHONE #: [phone] EXAM DATE: 04/15/2021 STATUS: REG CLI FAX #: [phone] RAD #: D/C DT PAGE 2 Signed ReportLarge Joint Arthrocentesis: knee, L [id number] 18:30:00Yoel Jalloh MD 03/05/2021 1:40 PMLarge Joint Arthrocentesis: knee, L kneePerformed by: CarlA. Yeimi, LESLEYuthorized by: Yoel Jalloh MD Consent given by: PatientTimeout: prior to procedure the correct patient, procedure, and site was verified Indications: PainLocation: KneeSite: L kneePrep: patient was prepped and draped in usual sterile fashion Ultrasound guided?: No Needle size (left): 22 GLeft side approach: MedialLeft side medications: 10 mL lidocaine 10 mg/mL (1 %)Patient tolerance (left):Patient tolerated the procedure well with no immediate complicationsCT Lower Extremity Wo Contrast [id number] 18:59:04 EXAMINATION: CT LOWER EXTREMITY WO CONTRAST LEFT CLINICAL HISTORY: T84.84XA Pain due to internal orthopedic prosthetic devices implants and grafts initial encounter, Z96.652 Presence of left artificialknee joint, painful lt total knee TECHNIQUE: Multiple axial images of the lower extremity were obtained. CT imaging was performed with iterative reconstruction technique and/or automated exposure control to reduce radiation dose. COMPARISON: X-ray dated 02/13/2021 FINDINGS: Total knee arthroplasty. No belinda-hardware lucency or findings to suggest particle disease or loosening. There is approximately 4 degrees of internal rotation of the femoral component with respect to the surgical transepicondylar axis of the femur and posterior condylar axis of the femoral component. The tibial rotation angle of the posterior condylar axis of the tibial component and tibial tuberosity is 14 degrees internal rotation. Patella baja.. Large suprapatellar subcutaneous approximate 7 x 8 x 3.5 cm fluid collection. This may represent a seroma. IMPRESSION: 1.Total knee arthroplasty with suprapatellar distal thigh subcutaneous seroma.2.No periprosthetic fractures or loosening or findings of osteolysis.3.Rotational measurements as above.4.Patella baja. [facility]-[id number] Interface, Radiology Results Incoming - 12:02 PM CDT EXAMINATION: CT LOWER EXTREMITY WO CONTRAST LEFTCLINICAL HISTORY: T84.84XA Pain due to internal orthopedic prosthetic devices implants and grafts initial encounter, Z96.652 Presence of left artificial knee joint, painful lt total kneeTECHNIQUE: Multiple axial images of the lower extremity were obtained. CT imaging was performed with iterative reconstruction technique and/or automated exposure control to reduce radiation dose.COMPARISON: X-ray dated 02/13/2021FINDINGS:Total knee arthroplasty. No belinda-hardware lucency or findings to suggest particle disease or loosening.There is approximately 4 degrees of internal rotation of thefemoral component with respect to the surgical transepicondylar axis of the femur and posterior condylar axis of the femoral component.The tibial rotation angle of the posterior condylar axis of the tibial component and tibial tuberosity is 14 degrees internal rotation.Patella baja.. Large suprapatellar subcutaneous approximate 7 x 8 x 3.5 cm fluid collection. This may represent a seroma.IMPRESSION:1.Total knee arthroplasty with suprapatellar distal thigh subcutaneous seroma.2.No periprosthetic fractures or loosening or findings of osteolysis.3.Rotational measurements as above.4.Patella baja.[id number]"
[2023-01-14] MEDS ORDERED: ONDANSETRON 4 MG/2 ML VIAL ONE (17:31)
[2023-01-14] MEDS ORDERED: FENTANYL CITR 100 MCG/2 ML ONE ×3 (17:31→21:56)
[2023-01-14] MEDS ORDERED: NA CHLORIDE 0.9% 1,000 ML ONE (17:31)
[2023-01-14 17:36] LABS: Urine Blood Trace-intact (Negative); Urine Glucose Negative (Negative); Urine Protein Negative (Negative); Urine Specific Gravity 1.015 (1.005-1.030)
[2023-01-14 17:50] LABS: Absolute Lymphocytes (CBC) 0.5 K/uL (0.7-4.9); Hematocrit 26.1 % (36.0-45.0); Lymphocytes % 4.4 % (15.3-44.8); MCV 81.9 fL (80-100); MPV 7.3 fL (7.6-11.3); RBC Red Blood Cell Count 3.18 M/uL (3.86-4.86)
[2023-01-14 17:55] LABS: Urine Bacteria 20-50 /HPF (<20); Urine Mucus Slight /HPF (None Seen)
[2023-01-14 18:11] LABS: Albumin 1.6 g/dL (3.4-5.0); Bilirubin Total 0.8 mg/dL (0.2-1.0); Protein, Total 6.8 g/dL (6.4-8.2)
[2023-01-14 18:13] LABS: Potassium 4.5 mEq/L (3.5-5.1)
[2023-01-14 18:36] LABS: Protime INR 2.03
--- NOTE | 2023-01-14 19:16 | RAD REPORT ---
EXAM DESCRIPTION: CT - Abdomen Pelvis W Contrast - 01/14/2023 6:48 pm CLINICAL HISTORY: Abd pain;Flank pain COMPARISON: No comparisons TECHNIQUE: Thin cut axial CT imaging of the abdomen and pelvis was performed following intravenous a dministration of 95 mL Isovue 300. Multiplanar reformats were generated and reviewed. All CT scans are performed using dose optimization technique as appropriate and may include automated exposure control or mA/KV adjustment according to patient size. FINDINGS: Trace right pleural effusion. Minimal dependent atelectasis. The liver, spleen, adrenal glands, and pancreas show no suspicious findings. Gallbladder shows a 2.4 centimeter calcified stone in the region of the gallbladder neck. No evidence of intra or extrahepati c biliary ductal dilation. Symmetric renal function is seen with no hydronephrosis or suspicious renal mass. Small right cortica l renal cysts the largest at the right lower pole measuring 2.6 centimeter. No dilated bowel loops or bowel wall thickening. Colonic diverticulosis No free air, free fluid or in flammatory stranding. No hernia, mass or bulky lymphadenopathy. The urinary bladder is without signif icant finding. Destructive changes of the endplates with adjacent prevertebral and paraspinous soft tissue thickenin g at L1-2 and L2-3. Findings are concerning for discitis/osteomyelitis, of uncertain chronicity. Florin centic hyperdense rim along the ventral epidural space opposite L2 (sagittal image 86). Soft tissue t hickening with suspected bilobed collection the tip of the coccyx, measuring 37 x 20 mm with adjacent osseous lytic changes of the coccyx. IMPRESSION: Destructive changes of the endplates with adjacent prevertebral and paraspinous soft tis olya thickening at L1-2 and L2-3. Findings are concerning for discitis/osteomyelitis, of uncertain chr onicity. Possible ventral epidural abscess opposite L2 and a small right psoas abscess at the level o f L2-3, difficult to evaluate on this CT. Soft tissue thickening with suspected bilobed collection the tip of the coccyx, with adjacent osseous lytic changes, also concerning for osteomyelitis. Other findings as above. The findings were communicated to on 01/14/2023 at 19:05 hours.
[2023-01-14] MEDS ORDERED: CEFTRIAXONE 1000 MG/VIAL ONE (19:25)
--- NOTE | 2023-01-14 20:07 | EDPHYS ---
Physician Documentation [facility] Name: Karen Harmon Age: 77 yrs Sex: Female : 1945 Arrival Date: 01/14/2023 Time: 16:42 Bed 14 Private MD: ED Physician Srinivasan Arthur HPI: 01/14 18:41 This 77 yrs old Female presents to ER via EMS with complaints of Fall Injury, Back kb Pain, Hip Pain. 18:43 The patient presents with generalized weakness. Onset: The symptoms/episode kb began/occurred and became worse today. Context: occurred at home, occurred while the patient was sitting, just prior to the episode the patient experienced no apparent symptoms. Modifying factors: The symptoms are alleviated by nothing, the symptoms are aggravated by nothing. Associated signs and symptoms: The patient has no apparent associated signs or symptoms. Severity of symptoms: At their worst the symptoms were moderate in the emergency department the symptoms are unchanged. Patient's baseline: Neuro: alert and fully oriented, Motor: right-sided weakness, left-sided weakness, Ambulation: walks with assist only, Speech: normal. The patient has not experienced similar symptoms in the past. The patient has been recently seen by a physician:. 19:50 Patient 77-year-old female who presents for low back pain and lower extremity weakness. kb States she has had the low back pain for approximately 4 months and progressive weakness to the lower extremities. Today she sat down on the potty chair and could not get up due to weakness and pain. Was able to stand with assist from but then was lowered to the ground.. Historical: - Home Meds: 17:01 Eliquis 5 mg oral tablet 1 tab 2 times per day [Active]; terazosin 5 mg oral capsule db daily [Active]; losartan 25 mg oral tablet daily [Active]; furosemide 40 mg Oral tablet daily [Active]; metoprolol tartrate 50 mg oral tablet 1 tab once [Active]; atorvastatin 40 mg oral tablet daily [Active]; isosorbide mononitrate 60 mg Oral Tablet, Extended Release 24 hr once [Active]; - Immunization history:: Adult Immunizations unknown. - Social history:: Smoking status: Patient denies any tobacco usage or history of. ROS: 18:32 Constitutional: Negative for fever, chills, and weight loss. kb 18:32 Back: Positive for pain at rest, pain with movement. 18:32 Neuro: Positive for weakness. 18:32 All other systems are negative. Exam: 18:32 Constitutional: This is a well developed, well nourished patient who is awake, alert, kb and in no acute distress. Head/Face: Normocephalic, atraumatic. ENT: Moist Mucous membranes Cardiovascular: Regular rate and rhythm with a normal S1 and S2. No gallops, murmurs, or rubs. No pulse deficits. Respiratory: Respirations even and unlabored. No increased work of breathing. Talking in full sentences Skin: Warm, dry with normal turgor. Normal color. MS/ Extremity: Pulses equal, no cyanosis. Neurovascular intact. Full, normal range of motion. Neuro: Awake and alert, GCS 15, oriented to person, place, time, and situation. Moves all extremities. Normal gait. 18:32 Abdomen/GI: Inspection: abdomen appears normal, Bowel sounds: normal, Palpation: soft, in all quadrants, mild abdominal tenderness, in the right lower quadrant and left lower quadrant. 18:32 Back: pain, that is mild, of the lumbar area, CVA tenderness, that is moderate, is noted on the right. 19:52 ECG was reviewed by the Attending Physician. kb Vital Signs: 16:56 BP 98 / 53; Pulse 91; Resp 22; Temp 98; Pulse Ox 94% ; Weight 104.33 kg; Height 5 ft. 2 db in. ; 17:00 BP 104 / 77; Pulse 83; Resp 18; Pulse Ox 94% on R/A; db 17:30 BP 119 / 63; Pulse 82; Resp 18; Pulse Ox 94% on R/A; db 16:56 Body Mass Index 42.07 (104.33 kg, 157.48 cm) db MDM: 16:58 Patient medically screened. kb 18:35 Data reviewed: vital signs, nurses notes. kb 19:52 Differential diagnosis: generalized weakness, sepsis, UTI, herniated disc. kb Consideration of Admission/Observation Patient will be transferred for neurosurgery services.. Independent interpretation of the following test(s) in the Emergency Department EKG: See my EKG interpretation above. Discussion of test interpretation with radiology: I had a discussion with radiology regarding a test interpretation. Discussed CT findings with Dr. Sargent. Historians other than the Patient: Spouse/Significant Other: . Counseling: I had a detailed discussion with the patient and/or guardian regarding: the historical points, exam findings, and any diagnostic results supporting the discharge/admit diagnosis, lab results, radiology results, the need to transfer to another facility, for higher level of care, [facility] does not immediately have the required specialist. ED course: Patient is a 37-year-old female who presents for low back pain and lower extremity weakness. Reports low back pain has been ongoing for 4 months and progressively getting worse. Reports weakness has been ongoing since about November. On exam patient has no neurodeficits. Mild tenderness to the lower abdomen, moderate tenderness to right flank and L-spine. Lungs clear bilaterally, no respiratory distress. Serum labs completed and reviewed. Severe sepsis criteria met: Source (A): Osteomyelitis, UTI, psoas abscess, possible epidural abscess; SIRS criteria (B): Heart rate, respiratory rate, WBC count; end organ dysfunction (C): Lactate and INR. CT scan completed and reviewed. Concerning for epidural abscess, right psoas abscess, osteomyelitis of L1-3 and coccyx. Transfer initiated to [facility] per patient request. Patient was recently discharged from [facility].. 20:03 Management of patient was discussed with the following: Discussed case with Dr Vasquez, kb termite renewal inspector at [facility], who accepts patient for transfer.. ED course: Sepsis reevaluation complete. 01/14 17:13 Order name: IV Saline Lock; Complete Time: 17:39 kb 01/14 17:13 Order name: Labs collected and sent; Complete Time: 17:39 kb 01/14 17:13 Order name: Urine Dipstick-Ancillary (obtain specimen); Complete Time: 17:39 kb 01/14 17:13 Order name: CBC with Diff; Complete Time: 17:55 kb 01/14 17:13 Order name: Urine Microscopic Only; Complete Time: 17:58 kb 01/14 17:55 Order name: Blood Culture Adult (2) kb 01/14 17:36 Order name: Urine Dipstick-Ancillary; Complete Time: 17:45 EDMS 01/14 17:58 Order name: Urine Culture EDID 01/14 17:59 Order name: EKG; Complete Time: 17:59 kb 01/14 17:13 Order name: CMP; Complete Time: 18:28 kb 01/14 17:13 Order name: Lipase; Complete Time: 18:28 kb 01/14 17:59 Order name: Protime (+inr); Complete Time: 18:39 kb 01/14 17:59 Order name: Ptt, Activated; Complete Time: 18:39 kb 01/14 17:55 Order name: Lactate w/ 2H reflex if indic.; Complete Time: 18:56 kb 01/14 17:13 Order name: CT Abd/Pelvis - IV Contrast Only; Complete Time: 19:17 kb 01/14 17:59 Order name: EKG - Nurse/Tech; Complete Time: 19:28 kb EC:52 Rate is 79 beats/min. Rhythm is regular. QRS [place] is Normal. CA interval is normal at kb 164 msec. QRS interval is normal at 80 msec. QT interval is normal at 415 msec. Administered Medications: 17:13 CANCELLED (Physician Discretion): morphine IVP or IV 4 mg IVP once over 4 mins kb 17:40 Drug: fentaNYL (PF) IVP 25 mcg Route: IVP; Site: left wrist; db 17:40 Drug: NS 0.9% IV 1000 ml Route: IV; Rate: 1 bolus; Site: left wrist; db 17:40 Drug: Ondansetron IVP 4 mg Route: IVP; Site: left wrist; db 19:28 Drug: Rocephin IV 1 grams Route: IV; Rate: calculated rate; Site: right antecubital; vc1 Disposition Summary: 01/14/23 20:06 Transfer Ordered Accepting Physician: Dr Christina chao Transfer Location: [facility] kb Reason: Higher level of care kb Condition: Stable kb Problem: new kb Symptoms: are unchanged kb Diagnosis - Osteomyelitis of vertebra, site unspecified - L1-3, coccyx kb - Epidural abscess kb - Right psoas abscess kb Forms: - Medication Reconciliation Form kb - SBAR form kb Signatures: Dispatcher [employer] EDMS Elba Sotelo FNP-C FNP-Ckb Shon Araujo FNP-C FNP-Cla1 Yuliana Villalta RN RN Alpa Huber, RN RN vc1 Nimco Carpio RN RN db Corrections: (The following items were deleted from the chart) 17:13 17:13 morphine IVP or IV 4 mg IVP once over 4 mins ordered. kb kb
--- NOTE | 2023-01-14 20:07 | ER ---
Nurse's Notes [facility] Name: Karen Harmon Age: 77 yrs Sex: Female : 1945 Arrival Date: 01/14/2023 Time: 16:42 Bed 14 Private MD: Diagnosis: Osteomyelitis of vertebra, site [id number], coccyx;Epidural abscess;Right psoas abscess Presentation: 01/14 16:50 Chief complaint: EMS states: patient brought in by EMS had a fall at home. States legs db went out from under her. patient states fell last Wednesday and was seen at [place]. Patient complains of back pain and right hip pain. states pain was before the fall. States called EMS for increased weakness and not being able to walk x 4 days. 16:56 Coronavirus screen: Client denies travel out of the [place] in the last 14 days. At this db time, the client does not indicate any symptoms associated with coronavirus-19. Ebola Screen: Patient negative for fever greater than or equal to 101.5 degrees Fahrenheit, and additional compatible Ebola Virus Disease symptoms Patient denies exposure to infectious person. Patient denies travel to an Ebola-affected area in the 21 days before illness onset. No symptoms or risks identified at this time. Initial Sepsis Screen: Does the patient meet any 2 criteria? RR > 20 per min. Yes Does the patient have a suspected source of infection? No. Patient's initial sepsis screen is negative. Risk Assessment: Do you want to hurt yourself or someone else? Patient reports no desire to harm self or others. Onset of symptoms was January 14, 2023. Mechanism of Injury: Fall from standing position. 16:56 Method Of Arrival: EMS db 16:56 Acuity: SANTO 2 db Triage Assessment: 17:01 General: Appears in no apparent distress. comfortable, Behavior is calm, cooperative. db Pain: Complains of pain in back and right leg. Historical: - Home Meds: 17:01 Eliquis 5 mg oral tablet 1 tab 2 times per day [Active]; terazosin 5 mg oral capsule db daily [Active]; losartan 25 mg oral tablet daily [Active]; furosemide 40 mg Oral tablet daily [Active]; metoprolol tartrate 50 mg oral tablet 1 tab once [Active]; atorvastatin 40 mg oral tablet daily [Active]; isosorbide mononitrate 60 mg Oral Tablet, Extended Release 24 hr once [Active]; - Immunization history:: Adult Immunizations unknown. - Social history:: Smoking status: Patient denies any tobacco usage or history of. Screenin:04 [facility] Fall Risk Assessment (Adult) History of falling in the last 3 months, db including since admission Yes- fall prone (multiple falls) (3 pts) Confusion or Disorientation No (0 pts) Intoxicated or Sedated No (0 pts) Impaired Gait Yes (1 pt) Mobility Assist Device Used Yes (1 pt) Altered Elimination No (0 pt) Score/Fall Risk Level 3 or more points = High Risk Oriented to surroundings, Maintained a safe environment, Assessed \T\ reinforced patient's understanding of fall precautions, Hourly rounding (assess needs \T\ fall precautionary measures) done. Abuse screen: Denies threats or abuse. Denies injuries from another. Nutritional screening: No deficits noted. Tuberculosis screening: No symptoms or risk factors identified. Assessment: 17:04 Reassessment: see triage for initial assessment. db 17:59 Reassessment: Patient appears in no apparent distress at this time. Patient and/or db family updated on plan of care and expected duration. Pain level reassessed. Patient is alert, oriented x 3, equal unlabored respirations, skin warm/dry/pink. Vital Signs: 16:56 BP 98 / 53; Pulse 91; Resp 22; Temp 98; Pulse Ox 94% ; Weight 104.33 kg; Height 5 ft. 2 db in. ; 17:00 BP 104 / 77; Pulse 83; Resp 18; Pulse Ox 94% on R/A; db 17:30 BP 119 / 63; Pulse 82; Resp 18; Pulse Ox 94% on R/A; db 16:56 Body Mass Index 42.07 (104.33 kg, 157.48 cm) db ED Course: 16:42 Patient arrived in ED. aa5 16:55 Nimco Carpio RN is Primary Nurse. db 16:55 Maintain EMS IV. Dressing intact. Good blood return noted. Site clean \T\ dry. Gauge \T\ db site: 22g left wrist. 16:58 Elba Sotelo FNP-C is [facility]. kb 16:58 Srinivasan Arthur MD is Attending Physician. kb 16:59 Triage completed. db 17:01 Arm band placed on right wrist. Patient placed in an exam room. EKG completed in db triage. Results shown to MD. 17:39 CBC with Diff Sent. kj1 17:39 CMP Sent. kj1 17:40 Lipase Sent. kj1 17:40 Urine Microscopic Only Sent. kj1 17:52 Patient has correct armband on for positive identification. Call light in reach. Side db rails up X 1. Client placed on continuous cardiac and pulse oximetry monitoring. NIBP monitoring applied. 18:00 First set of blood cultures drawn by me. db 18:00 Inserted saline lock: 22 gauge in right antecubital area, using aseptic technique. db Blood collected. 18:16 Second set of blood cultures drawn by me. db 18:49 CT Abd/Pelvis - IV Contrast Only In Process Unspecified. EDMS 19:32 EKG done, by ED staff, reviewed by Elba MITCHELL. wm 19:54 Rachel care done, Pure Wick placed, Pt tolerated well. wm Administered Medications: 17:13 CANCELLED (Physician Discretion): morphine IVP or IV 4 mg IVP once over 4 mins kb 17:40 Drug: fentaNYL (PF) IVP 25 mcg Route: IVP; Site: left wrist; db 17:40 Drug: NS 0.9% IV 1000 ml Route: IV; Rate: 1 bolus; Site: left wrist; db 17:40 Drug: Ondansetron IVP 4 mg Route: IVP; Site: left wrist; db 19:28 Drug: Rocephin IV 1 grams Route: IV; Rate: calculated rate; Site: right antecubital; vc1 Outcome: 20:06 ER care complete, transfer ordered by . zhanna Signatures: Dispatcher [employer] EDMS Elba Sotelo FNP-C FNP-Ckb Calderon, Audri RN RN aa5 Brittney Sotelo kj1 Danna Meadows Alpa Casillas RN RN vc1 Nimco Carpio RN RN db Corrections: (The following items were deleted from the chart) 16:59 16:50 Chief complaint: EMS states: patient brought in by EMS had a fall at home. States db legs went out from under her. patient states fell last Wednesday and was seen at [place]. Patient complains of back pain and right hip pain db
[2023-01-14] MEDS ORDERED: VANCOMYCIN 1 GM/VIAL ONE (20:12)
[2023-01-14] MEDS ORDERED: Meropenem 1000 MG/VIAL IV ONE (20:12)
[2023-01-14] MEDS ORDERED: NA CHLORIDE 0.9% 250 ML ONE (20:12)
[2023-01-14] MEDS ORDERED: NA CHLORIDE 0.9% 100 ML ONE (20:13)
[2023-01-15 00:18] VITALS: TEMP 97.9
[2023-01-15 00:19] VITALS: BP 139/75; O2SAT 91
--- NOTE | 2023-01-18 17:45 | EKG ---
Test Date: 2023-01-14 Test Time: 19:26:08 Road Grader: MEASUREMENT RESULTS: Intervals: Rate: 79 [place]: 164 QRSD: 80 QT: 362 QTc: 415 Keavy: P: 63 AZ: 164 QRS: 39 T: 69 INTERPRETIVE STATEMENTS: Normal sinus rhythm Normal ECG No previous ECG available for comparison Electronically Signed On 01-18-23 17:37:56 CDT by Michael Lynn
== END 2023-01-14 22:05 | disposition short-term general hospital (02) ==
LOC: ER 16:32
DX: M46.26 Osteomyelitis of vertebra, lumbar region (principal); G06.2 Extradural and subdural abscess, unspecified; K68.12 Psoas muscle abscess; R53.1 Weakness; Z79.01 Long term (current) use of anticoagulants
CPT/HCPCS: 93005; 87040 ×2; 87088; 85025; 87086; 36415; 87205 ×4; 85610; 83605 ×2; 85730; 87077 ×3; 87186 ×3; 83690; 80053; 74177; 99285; Q9967; J3010 ×3; J2185; J2405; J7050; J7030; 81003; 81015